=== PATIENT | female | born 1985 | race Caucasian/White ===

== ENCOUNTER → 2020-01-12 14:18 | Outpatient (BNVA) | payer BC, SELFPAY | PROVIDERS: Visit Provider Obstetrics & Gynecology | DX: Z76.89 Persons encountering health services in other specified circumstances (principal) ==

== ENCOUNTER 2020-02-09 12:46 | Outpatient (REF) | payer BC, SELFPAY ==
--- NOTE | 2020-02-09 12:50 | US_ITS ---
EXAMINATION: ULTRASOUND PELVIS CLINICAL INFORMATION: Excessive frequent menstruation. COMPARISON: None TECHNIQUE: Transabdominal and transvaginal ultrasound of the pelvis is performed at FINDINGS: The uterus is anteverted and anteflexed. It measures 11.3 cm in length, 3.9 cm in AP and 6.1 cm in transverse dimension. The myometrium is heterogeneous but no focal lesions seen. Endometrial thickness is 0.5 cm. Small nabothian cysts are seen in the cervix. Right ovary measures 3.3 x 2.2 x 1.8 cm and volume 6.8 mL. It appears unremarkable. Left ovary measures 3.3 x 1.8 x 2.1 cm and volume 6.5 mL. It appears unremarkable. There is no free fluid in cul-de-sac. US/US pelvic complete IMPRESSION: Heterogenous myometrium. The uterus otherwise unremarkable. Nabothian cysts seen in the cervix. The ovaries are unremarkable.
--- NOTE | 2020-02-09 12:50 | US_ITS ---
EXAMINATION: ULTRASOUND PELVIS CLINICAL INFORMATION: Excessive frequent menstruation. COMPARISON: None TECHNIQUE: Transabdominal and transvaginal ultrasound of the pelvis is performed at FINDINGS: The uterus is anteverted and anteflexed. It measures 11.3 cm in length, 3.9 cm in AP and 6.1 cm in transverse dimension. The myometrium is heterogeneous but no focal lesions seen. Endometrial thickness is 0.5 cm. Small nabothian cysts are seen in the cervix. Right ovary measures 3.3 x 2.2 x 1.8 cm and volume 6.8 mL. It appears unremarkable. Left ovary measures 3.3 x 1.8 x 2.1 cm and volume 6.5 mL. It appears unremarkable. There is no free fluid in cul-de-sac. US/US transvaginal IMPRESSION: Heterogenous myometrium. The uterus otherwise unremarkable. Nabothian cysts seen in the cervix. The ovaries are unremarkable.
[2020-02-09 14:32] LABS: Hematocrit 41.6 % (37-47); Hemoglobin 13.6 g/dl (12.0-16.0); Mean Corpuscular HGB Conc 32.7 g/dl (31.0-35.0); Mean Corpuscular Hemoglobin 29.3 pg (27.0-33.0); Mean Corpuscular Volume 89.7 fL (80-98); Mean Platelet Volume 10.3 fL (9.4-12.3); Platelet Count 345 X10*3/uL (160-400); Red Blood Count 4.64 X10*6/uL (4.20-5.50); Red Cell Distribution Width 11.9 % (11.0-16.0); White Blood Count 8.8 X10*3/uL (4.8-10.8)
[2020-02-09 15:25] LABS: HCG Quantitative < 2 mIU/mL; Thyroid Stimulating Hormone 0.35 uIU/mL (0.32-4.0)
== END 2020-02-09 12:47 | disposition home or self-care (01) ==
LOC: HO.US 12:46
PROVIDERS: PCP Internal Medicine; Visit Provider Obstetrics & Gynecology
DX: N92.1 Excessive and frequent menstruation with irregular cycle (principal)
CPT/HCPCS: 36415; 76830; 76856; 84443; 84702; 85027

== ENCOUNTER → 2020-02-24 12:15 | Outpatient (BNVA) | payer BC, SELFPAY | PROVIDERS: Visit Provider Obstetrics & Gynecology | DX: Z76.89 Persons encountering health services in other specified circumstances (principal) ==

== ENCOUNTER 2020-02-29 15:24 | Outpatient (REF) | payer BC, SELFPAY | END 2020-02-29 15:25 | disposition home or self-care (01) | LOC: HO.LAB 15:24 | PROVIDERS: Visit Provider Obstetrics & Gynecology | DX: N92.1 Excessive and frequent menstruation with irregular cycle (principal) | CPT/HCPCS: 58100; 88305 ==

== ENCOUNTER → 2020-03-14 11:17 | Outpatient (BNVA) | payer BC, SELFPAY | PROVIDERS: Visit Provider Obstetrics & Gynecology ==

== ENCOUNTER 2020-11-10 16:11 | Outpatient (REF) | payer BC, SELFPAY ==
[2020-11-10 16:36] LABS: IDNOW Serial# 08D9AD1C; Strep A Nucleic Acid Negative (Negative)
[2020-11-10 16:56] LABS: Influenza A PCR NEGATIVE (Negative); Influenza B PCR NEGATIVE (Negative); Resp Syncy Virus RNA Qual PCR NEGATIVE (Negative); SARS COV2 PCR INHOUSE NEGATIVE (Negative)
== END 2020-11-10 16:12 | disposition home or self-care (01) ==
LOC: HO.LNP 16:11
PROVIDERS: Visit Provider Internal Medicine
DX: R43.9 Unspecified disturbances of smell and taste (principal); J06.9 Acute upper respiratory infection, unspecified; Z20.822 Contact with and (suspected) exposure to COVID-19
CPT/HCPCS: 0241U; 87651

== ENCOUNTER 2021-01-24 07:15 | Emergency (ER) | payer BC, SELFPAY ==
[2021-01-24 08:15] VITALS: BP 126/80; PULSE 132; RESP 18; TEMP 36.9; O2SAT 98; BMI 52.8
--- NOTE | 2021-01-24 08:34 | ED_ITS ---
HPI - URI/Sore Throat General Chief Complaint: Upper Respiratory Symptoms Stated Complaint: Sore throat Time Seen by Provider: 01/24/21 08:08 Source: patient Mode of arrival: ambulatory Limitations: no limitations History of Present Illness HPI Narrative: 35 y/o female with history of recurrent Strep negative tonsil litis presenting to the with severe sore throat for the last 4 days. She reports fevers as high as 102 at home as well. She is taking tylenol and motrin for the fevers and pain. She reports this is her 3rd episode since November. She has tested negative for Strep but improves with PO abx. She reports her last episode she also got prednisone. She reports her voice is muffled and she is having trouble swallowing because of the pain. No known sick contacts. She is fully vaccinated for COVID-19. MD elicited complaint: fever and sore throat Onset (ago): day(s) (4) Consistency: progressively worsening Severity: moderate Pain scale (0-10): 7 Description of mucous: clear Able to tolerate fluids by mouth: Yes Exacerbating factors: swallowing and speaking Relieving factors: NSAID and OTC cold medicine Associated symptoms: fever, voice changes and myalgias Treatments prior to arrival: acetaminophen Related Data Home Medications Medication Instructions Recorded Confirmed albuterol sulfate 90 mcg/actuation 2 puff INHALATION DAILY PRN 01/12/20 03/14/20 aerosol inhaler buspirone 5 mg tablet 5 mg PO BID PRN 01/12/20 03/14/20 Previous Rx's Medication Instructions Recorded azithromycin 250 mg tablet See Rx Instructions PO .COMPLEX #6 11/10/20 (Zithromax) tab amoxicillin 600 mg-potassium 7.5 ml PO BID 14 Days #210 ml 01/24/21 clavulanate 42.9 mg/5 mL oral suspension (Augmentin ES-) benzocaine 20 % mucosal aerosol 1 appl MUCOUS MEMBRANE TID PRN #57 01/24/21 spray (HurriCaine) g ibuprofen 600 mg tablet 600 mg PO Q8H PRN #20 tab 01/24/21 prednisone 50 mg tablet 50 mg PO DAILY #5 tab 01/24/21 Allergies Allergy/AdvReac Type Severity Reaction Status Date / Time Sulfa (Sulfonamide Allergy Unknown YEAST Verified 11/10/20 13:07 Antibiotics) INFECTION, [SULFA(SULFONAMIDE yeast ANTIBIOTICS)] infections hard shell seafood Allergy Unknown swelling Uncoded 02/29/20 15:35 of throat, vomiting seafood Allergy Unknown unknown Uncoded 02/29/20 15:35 seasonal Allergy Unknown unknown Uncoded 02/29/20 15:35 SHELLFISH Allergy Unknown RASH Uncoded 02/29/20 15:35 Review of Systems Review of Systems: Constitutional: No Fever, No Chills ENT/Mouth: + sore throat, No Rhinorrhea, + Swallowing Difficulty Eyes: No Eye Pain, No Swelling, No Redness Cardiovascular: No Chest Pain, No SOB Respiratory: No Cough, No Sputum, No Wheezing, No dyspnea Gastrointestinal: No Nausea, No Vomiting, No Diarrhea, No abdominal Pain Genitourinary: No Dysuria, No Urinary Frequency, No Hematuria Musculoskeletal: No joint pain, + Myalgias Skin: No Skin Lesions, No rash Neuro: No Weakness, No Numbness, No Dizziness, + Headache Psych: No Anxiety/Panic, No Depression Heme/Lymph: No Bruising, No Lymphadenopathy PMFSH Past Medical History Medical History Asthma Migraine aura without headache Sleep apnea Family History Family History Paternal Grandmother Breast CA Social History Social History Alcohol intake: current Alcohol intake frequency: holidays/special occasions only Advance Directives: No Advance Directives Information Provided: No Patient : No Sexual orientation: Straight/Heterosexual Gender identity: Female Physical Exam Vital Signs: Vital Signs: Last Vital Signs Temp 98.7 F 01/24/21 10:16 Pulse 106 H 01/24/21 10:16 Resp 18 01/24/21 10:16 BP 124/72 01/24/21 10:16 Pulse Ox 98 01/24/21 10:16 BMI result Body Mass Index 52.8 Appearance: Alert. Oriented X3. No acute distress. HEENT: pharynx with moist mucous membranes. Posteriorly there is significant bilateral tonsillar swelling, mild erythema, no exudates, uvula is midline. Muffled voice. Handling secretions normally. Normal tympanic membranes bilaterally. CVS: tachycardic, regular rhythm, Pulses normal. Respiratory: No respiratory distress. Lungs CTAB Skin: Skin warm and dry. Normal skin color. Normal skin turgor. No rashes. Extremities: atraumatic, normal inspection, normal ROM Neuro: Oriented X 3. No motor deficit. No sensory deficit. Course Course Course Narrative: 35 y/o female presenting with recurrent tonsillitis. Hx mono in high school. Responds to abx and steroids previously. Will repeat Strep, COVID, check mono and basic labs. She is afebrile but tachycardic to 130s, most likely due to pain. Tonsils are bilaterally enlarged and uvula is midline. No evidence of abscess. Will treat with IVF, decadron and Toradol. Reevaluation(s) Reevaluation #1: COVID, strep, mono all negative. WBC 14.9. She is tolerating oral fluids and was given a dose of Augmentin which she tolerated well. Her pain is improved. She is stable for discharge home with oral antibiotics and steroids. Will also prescribe topical medication for pain. MDM - URI/Sore Throat Lab Data Result diagrams: 01/24/21 08:42 01/24/21 08:42 Labs: Lab Results 01/24/21 01/24/21 01/24/21 Range/Units 08:23 08:23 08:42 WBC (4.8-10.8) X10*3/uL RBC (4.20-5.50) X10*6/uL Hgb (12.0-16.0) g/dl Hct (37.0-47.0) % MCV (80.0-98.0) fL MCH (27.0-33.0) pg MCHC (31.0-35.0) g/dl RDW (11.0-16.0) % Plt Count (160-400) X10*3/uL MPV (9.4-12.3) fL Immature Gran % (Auto) (0.0-0.4) % Neut % (Auto) (45-73) % Lymph % (Auto) (20-40) % [place] % (Auto) (2-11) % Eos % (Auto) (0-4) % Baso % (Auto) (0-2) % Lymph # (Auto) (1.2-4.9) X10*3/uL [place] # (Auto) (0.1-1.2) X10*3/uL Eos # (Auto) (0.0-0.4) X10*3/uL Baso # (Auto) (0.0-0.2) X10*3/uL Abs Immat Gran (auto) (0.00-0.03) X10*3/uL Absolute Neuts (auto) (2.0-8.3) x10*3/uL Absolute Nucleated RBC (0.0-0.012) X10*3/uL Nucleated RBC % (auto) (0.0-0.2) /100WBC Sodium (135-145) mmol/L Potassium (3.3-5.1) mmol/L Chloride (96-108) mmol/L Carbon Dioxide (22-29) mmol/L Anion Gap (12-20) BUN (9-16) mg/dL Creatinine (0.5-1.4) mg/dL Estim Creat Clear Calc Estimated GFR Random Glucose (60-115) mg/dL Calcium (8.4-10.2) mg/dL COVID-19 ([facility]) Negative (Negative) COVID-19 Clin Com See Note Monoscreen Negative (Negative) S. pyogenes GrpA CONNER Negative (Negative) 01/24/21 01/24/21 Range/Units 08:42 08:42 WBC 14.9 H (4.8-10.8) X10*3/uL RBC 4.50 (4.20-5.50) X10*6/uL Hgb 13.1 (12.0-16.0) g/dl Hct 39.4 (37.0-47.0) % MCV 87.6 (80.0-98.0) fL MCH 29.1 (27.0-33.0) pg MCHC 33.2 (31.0-35.0) g/dl RDW 12.7 (11.0-16.0) % Plt Count 262 (160-400) X10*3/uL MPV 10.0 (9.4-12.3) fL Immature Gran % (Auto) 0.4 (0.0-0.4) % Neut % (Auto) 81.2 H (45-73) % Lymph % (Auto) 12.2 L (20-40) % Fill[place] % (Auto) 5.9 (2-11) % Eos % (Auto) 0.1 (0-4) % Baso % (Auto) 0.2 (0-2) % Lymph # (Auto) 1.8 (1.2-4.9) X10*3/uL [place] # (Auto) 0.9 (0.1-1.2) X10*3/uL Eos # (Auto) 0.0 (0.0-0.4) X10*3/uL Baso # (Auto) 0.0 (0.0-0.2) X10*3/uL Abs Immat Gran (auto) 0.06 H (0.00-0.03) X10*3/uL Absolute Neuts (auto) 12.1 H (2.0-8.3) x10*3/uL Absolute Nucleated RBC 0.000 (0.0-0.012) X10*3/uL Nucleated RBC % (auto) 0.0 (0.0-0.2) /100WBC Sodium 134 L (135-145) mmol/L Potassium 4.2 (3.3-5.1) mmol/L Chloride 102 (96-108) mmol/L Carbon Dioxide 23 (22-29) mmol/L Anion Gap 13 (12-20) BUN 10 (9-16) mg/dL Creatinine 0.77 (0.5-1.4) mg/dL Estim Creat Clear Calc 140.0 Estimated GFR > 60 Random Glucose 108 (60-115) mg/dL Calcium 9.2 (8.4-10.2) mg/dL COVID-19 ([facility]) (Negative) COVID-19 Clin Com Monoscreen (Negative) S. pyogenes GrpA CONNER (Negative) Critical Care Time Critical Care Time Critical Care Time: No Discharge Plan Discharge Clinical Impression: Tonsillitis Patient Disposition: Home, Self-Care Instructions: Tonsillitis (ED), Tonsillectomy (DC) Additional Instructions: You were negative for Strep throat and COVID-19. Recommend taking the prescribed antibiotics for a full 2 weeks. Take the prescribed prednisone starting tomorrow - you were given 1st dose in the ER. Use warm salt water gargles several times per day. Recommend over the counter Cepacol lozenges to help with throat pain. Get a new toothbrush. Follow up with ENT for evaluation of tonsillectomy. If you develop new or worsening symptoms call 911 or come back to the ER for further evaluation. Prescriptions: New amoxicillin-pot clavulanate [Augmentin ES-600] 600-42.9 mg/5 mL suspension for reconstitution 7.5 ml PO BID 14 Days Qty: 210 RF: 0 prednisone 50 mg tablet 50 mg PO DAILY Qty: 5 RF: 0 ibuprofen 600 mg tablet 600 mg PO Q8H PRN (Reason: fever or pain) Qty: 20 RF: 0 HurriCaine 20 % aerosol,spray 1 appl mucous membrane TID PRN (Reason: sore throat) Qty: 57 RF: 0 No Action azithromycin [Zithromax] 250 mg tablet See Rx Instructions PO .COMPLEX Qty: 6 RF: 0 buspirone 5 mg tablet 5 mg PO BID PRNRF: 0 albuterol sulfate 90 mcg/actuation HFA aerosol inhaler 2 puff inhalation DAILY PRNRF: 0 Referrals: Zafar Lisa [Physician] - 2 days (severe recurrent tonsillitis) Stand Alone Forms: Work/School Release
[2021-01-24 08:44] LABS: Strep A Nucleic Acid Negative (Negative)
[2021-01-24] MEDS: 0.9 % Sodium Chloride 1,000 ML 999 ML IVCONT (08:44)
[2021-01-24 08:47] LABS: MANUAL DIFF FLAG NO
[2021-01-24] MEDS: Ketorolac Tromethamine 30 MG/ML VIAL IVPUSH (08:47)
[2021-01-24] MEDS: dexAMETHasone sod phosphate 10 MG/ML VIAL IVPUSH (08:47)
[2021-01-24 08:50] LABS: COVID-19 Test Negative (Negative); IDNOW Serial# 55D5AD1C
[2021-01-24 08:50] LABS: Basophils Percent Auto 0.2 % (0-2); Eosinophils Percent Auto 0.1 % (0-4); Hematocrit 39.4 % (37.0-47.0); Hemoglobin 13.1 g/dl (12.0-16.0); Imm Gran Abs Auto 0.06 X10*3/uL (0.00-0.03); Imm Gran Pct Auto 0.4 % (0.0-0.4); Lymphocytes Absolute Auto 1.8 X10*3/uL (1.2-4.9); Lymphocytes Percent Auto 12.2 % (20-40); Mean Corpuscular HGB Conc 33.2 g/dl (31.0-35.0); Mean Corpuscular Hemoglobin 29.1 pg (27.0-33.0); Mean Corpuscular Volume 87.6 fL (80.0-98.0); Monocytes Absolute Auto 0.9 X10*3/uL (0.1-1.2); Monocytes Percent Auto 5.9 % (2-11); Neutrophils Absolute Auto 12.1 x10*3/uL (2.0-8.3); Neutrophils Percent Auto 81.2 % (45-73); Platelet Count 262 X10*3/uL (160-400); Red Cell Distribution Width 12.7 % (11.0-16.0); White Blood Count 14.9 X10*3/uL (4.8-10.8)
--- NOTE | 2021-01-24 08:52 | PC.NURSE ---
Pt IV established, medicated as per MAR orders, labs sent. Call noble in place, will continue to monitor.
[2021-01-24 09:08] LABS: Anion Gap 13 (12-20); Blood Urea Nitrogen 10 mg/dL (9-16); Calcium 9.2 mg/dL (8.4-10.2); Carbon Dioxide 23 mmol/L (22-29); Chloride 102 mmol/L (96-108); Estimated Glomerular Filt Rate > 60; Glucose Random 108 mg/dL (60-115); Potassium 4.2 mmol/L (3.3-5.1); Sodium 134 mmol/L (135-145)
[2021-01-24] MEDS: Lidocaine HCl Viscous 2 % 15 ML SOLUTION MUCOUS MEM (09:38)
[2021-01-24 10:16] VITALS: BP 124/72; PULSE 106; RESP 18; TEMP 37.1; O2SAT 98
[2021-01-24 10:43] LABS: Monotest Negative (Negative)
== END 2021-01-24 11:16 | disposition home or self-care (01) ==
PROVIDERS: Physician Assistant; Emergency Provider Emergency Medicine; PCP Internal Medicine
DX: J03.90 Acute tonsillitis, unspecified (principal); R51.9 Headache, unspecified; Z20.822 Contact with and (suspected) exposure to COVID-19
CPT/HCPCS: 36415; 80048; 85025; 86308; 87635; 87651; 96361; 96374; 96375; 99284; J1100; J1885

== ENCOUNTER 2021-08-02 11:28 | Outpatient (REF) | payer BC, SELFPAY ==
[2021-08-02 13:47] LABS: MANUAL DIFF FLAG NO
[2021-08-02 14:08] LABS: Basophils Percent Auto 0.4 % (0-2); Eosinophils Absolute Auto 0.2 X10*3/uL (0.0-0.4); Eosinophils Percent Auto 2.7 % (0-4); Hematocrit 37.2 % (37.0-47.0); Imm Gran Abs Auto 0.03 X10*3/uL (0.00-0.03); Imm Gran Pct Auto 0.4 % (0.0-0.4); Lymphocytes Absolute Auto 3.1 X10*3/uL (1.2-4.9); Lymphocytes Percent Auto 36.7 % (20-40); Mean Corpuscular HGB Conc 32.3 g/dl (31.0-35.0); Mean Corpuscular Hemoglobin 29.1 pg (27.0-33.0); Mean Corpuscular Volume 90.1 fL (80.0-98.0); Mean Platelet Volume 10.6 fL (9.4-12.3); Monocytes Absolute Auto 0.6 X10*3/uL (0.1-1.2); Monocytes Percent Auto 7.1 % (2-11); Neutrophils Absolute Auto 4.5 x10*3/uL (2.0-8.3); Neutrophils Percent Auto 52.7 % (45-73); Platelet Count 270 X10*3/uL (160-400); Red Blood Count 4.13 X10*6/uL (4.20-5.50); Red Cell Distribution Width 12.5 % (11.0-16.0); White Blood Count 8.5 X10*3/uL (4.8-10.8)
[2021-08-02 14:19] LABS: Alanine Aminotransferase 28 U/L (0-31); Albumin Level 3.8 g/dL (3.5-5.0); Alkaline Phosphatase 74 U/L (39-117); Anion Gap 12 (12-20); Aspartate Amino Transferase 21 U/L (5-31); Bilirubin Total 0.4 mg/dL (0.0-1.0); Blood Urea Nitrogen 13 mg/dL (9-16); Calcium 8.9 mg/dL (8.4-10.2); Carbon Dioxide 27 mmol/L (22-29); Chloride 104 mmol/L (96-108); Cholesterol 195 mg/dL; Estimated Glomerular Filt Rate > 60; Glucose Fasting 95 mg/dL (60-99); HDL Cholesterol 46 mg/dL; LDL Cholesterol Calculated 113 mg/dl; Potassium 4.5 mmol/L (3.3-5.1); Sodium 138 mmol/L (135-145); Total Protein 6.7 g/dL (6.5-8.0); Triglycerides 180 mg/dL
== END 2021-08-02 11:29 | disposition home or self-care (01) ==
LOC: HO.10HDL 11:28
PROVIDERS: Visit Provider Internal Medicine
DX: Z00.00 Encounter for general adult medical examination without abnormal findings (principal)
CPT/HCPCS: 36415; 80053; 80061; 84443; 85025

== ENCOUNTER 2022-04-12 22:42 | Emergency (ER) | payer BC, SELFPAY ==
--- NOTE | ~2022-04-12 | CT_ITS ---
EXAMINATION: CT ABDOMEN AND PELVIS WITHOUT CONTRAST CLINICAL INFORMATION: Left flank pain COMPARISON: None TECHNIQUE: Multidetector volumetric imaging was performed from the superior aspect of the liver through the pubic symphysis. Sagittal and coronal reformatted images were obtained on the technologist's workstation. This CT examination was performed using dose optimization techniques as appropriate, variously including the following: *Automated exposure control *Adjustment of mA and/or kV according to patient size (this includes techniques or standardized protocols for targeted exams where dose is matched to indication/reason for exam; i.e. extremities or head) *Use of iterative reconstruction technique DLP: 1420 mGy-cm FINDINGS: LUNG BASES: The visualized lung bases are unremarkable. LIVER, GALLBLADDER, AND BILIARY TREE: The liver demonstrate hypoattenuation suspicious for steatosis. No biliary ductal dilatation is present. Gallbladder appears contracted. PANCREAS: Partially atrophic. SPLEEN: Unremarkable. ADRENAL GLANDS: Unremarkable. KIDNEYS AND URETERS: There is a 3 mm calculus at the left ureterovesicular junction with mild hydroureter and no significant hydronephrosis. No right hydronephrosis. BLADDER: Mildly distended. 3 mm calculus at the left ureterovesicular junction. GASTROINTESTINAL TRACT: Minimal colonic diverticulosis. The small and large bowel are otherwise unremarkable without evidence of obstruction or pericolonic inflammatory change. The appendix is unremarkable. No free fluid or free air is seen. ABDOMINAL WALL: No significant hernia is appreciated. LYMPH NODES: Normal. VASCULAR: Unremarkable. PELVIC VISCERA: Unremarkable. OSSEOUS STRUCTURES: Multilevel endplate osteophytes in the spine. Facet arthropathy at L5-S1. CT/CT abdomen pelvis wo IV con IMPRESSION: 1. Left ureterovesicular junction calculus measuring 3 mm with mild hydroureter. No significant hydronephrosis. 2. Hepatic steatosis.
[2022-04-12 22:44] VITALS: BP 153/94; PULSE 107; RESP 16; TEMP 36.4; O2SAT 98; BMI 57.5
[2022-04-12 23:38] LABS: MANUAL DIFF FLAG NO
[2022-04-12 23:39] LABS: Basophils Percent Auto 0.3 % (0-2); Eosinophils Absolute Auto 0.2 X10*3/uL (0.0-0.4); Eosinophils Percent Auto 1.3 % (0-4); Hematocrit 34.9 % (37.0-47.0); Hemoglobin 11.9 g/dl (12.0-16.0); Imm Gran Abs Auto 0.03 X10*3/uL (0.00-0.03); Imm Gran Pct Auto 0.3 % (0.0-0.4); Lymphocytes Absolute Auto 2.7 X10*3/uL (1.2-4.9); Lymphocytes Percent Auto 23.1 % (20-40); Mean Corpuscular HGB Conc 34.1 g/dl (31.0-35.0); Mean Corpuscular Hemoglobin 29.7 pg (27.0-33.0); Mean Platelet Volume 9.7 fL (9.4-12.3); Monocytes Absolute Auto 0.8 X10*3/uL (0.1-1.2); Monocytes Percent Auto 6.9 % (2-11); Neutrophils Percent Auto 68.1 % (45-73); Platelet Count 262 X10*3/uL (160-400); Red Blood Count 4.01 X10*6/uL (4.20-5.50); Red Cell Distribution Width 12.4 % (11.0-16.0); White Blood Count 11.7 X10*3/uL (4.8-10.8)
[2022-04-13 00:06] LABS: Alanine Aminotransferase 28 U/L (0-31); Albumin Level 3.8 g/dL (3.5-5.0); Alkaline Phosphatase 83 U/L (39-117); Anion Gap 14 (12-20); Aspartate Amino Transferase 17 U/L (5-31); Bilirubin Total 0.4 mg/dL (0.0-1.0); Blood Urea Nitrogen 15 mg/dL (9-16); Calcium 8.5 mg/dL (8.4-10.2); Carbon Dioxide 24 mmol/L (22-29); Chloride 105 mmol/L (96-108); Creatinine Clr Calc Pharmacy 151.1; Estimated Glomerular Filt Rate > 60; Glucose Random 156 mg/dL (60-115); Potassium 3.7 mmol/L (3.3-5.1); Sodium 139 mmol/L (135-145); Total Protein 6.4 g/dL (6.5-8.0)
--- NOTE | 2022-04-13 00:59 | ED_ITS ---
HPI - General Adult General Chief complaint: General Medical Stated complaint: Kidney Stone? Abdominal Pain Time Seen by Provider: 04/13/22 00:31 History of Present Illness HPI narrative: Patient is a 36-year-old female present today with having left flank pain radiating to the left groin area. The pain is sharp in nature. Started this evening. Never had a kidney stone before. No change in bowel movement. Patient's menstruation has been normal in timing and duration. No fever no chills. No coughing or congestion her symptoms. Related Data Home Medications Medication Instructions Recorded Confirmed albuterol sulfate 90 mcg/actuation 2 puff inhalation DAILY PRN 01/12/20 03/14/20 aerosol inhaler buspirone 5 mg tablet 5 mg PO BID PRN 01/12/20 03/14/20 Previous Rx's Medication Instructions Recorded azithromycin 250 mg tablet See Rx Instructions PO .COMPLEX #6 11/10/20 (Zithromax) tabs amoxicillin 600 mg-potassium 7.5 ml PO BID 14 days #210 mL 01/24/21 clavulanate 42.9 mg/5 mL oral suspension (Augmentin ES-) benzocaine 20 % mucosal aerosol 1 appl mucous membrane TID PRN 01/24/21 spray (HurriCaine) sore throat #57 grams ibuprofen 600 mg tablet 600 mg PO Q8H PRN fever or pain 01/24/21 #20 tabs prednisone 50 mg tablet 50 mg PO DAILY #5 tabs 01/24/21 cefuroxime axetil 500 mg tablet 500 mg PO BID 7 days #14 tabs 04/13/22 ibuprofen 400 mg tablet 400 mg PO Q6H PRN pain #20 tabs 04/13/22 ondansetron 4 mg disintegrating 4 mg PO TID PRN nausea and 04/13/22 tablet vomiting 5 days #10 tabs oxycodone 5 mg tablet 5 mg PO Q8H PRN pain #7 tabs 04/13/22 tamsulosin 0.4 mg capsule (Flomax) 0.4 mg PO DAILY #7 caps 04/13/22 Allergies Allergy/AdvReac Type Severity Reaction Status Date / Time Sulfa (Sulfonamide Allergy Unknown YEAST Verified 11/10/20 13:07 Antibiotics) INFECTION, [SULFA(SULFONAMIDE yeast ANTIBIOTICS)] infections hard shell seafood Allergy Unknown swelling Uncoded 02/29/20 15:35 of throat, vomiting seafood Allergy Unknown unknown Uncoded 02/29/20 15:35 seasonal Allergy Unknown unknown Uncoded 02/29/20 15:35 SHELLFISH Allergy Unknown RASH Uncoded 02/29/20 15:35 Review of Systems Review of Systems: Positive left flank pain Yes all other systems are reviewed and are negative [facility] Past Medical History Attestation statement: The following information was validated with the patient. Medical History Asthma Migraine aura without headache Sleep apnea Family History Family History Paternal Grandmother Breast CA Social History Social History Alcohol intake: current Alcohol intake frequency: holidays/special occasions only Smoked in Last 30 Days: No Use of substances other than those prescribed or required for medical reasons: Yes Substance Use Type: Marijuana Advance Directives: No Advance Directives Information Provided: Yes Patient : No Sexual orientation: Straight/Heterosexual Gender identity: Female Physical Exam ED Vital Signs: Vital Signs - 24 hr 04/12/22 22:44 04/13/22 01:16 04/13/22 03:36 Temperature 97.5 F 98.3 F 98.0 F Pulse Rate 107 H 71 83 Respiratory Rate 16 18 17 Blood Pressure 153/94 H 139/69 117/53 L Pulse Oximetry 98 98 96 Oxygen Delivery Method Room Air Room Air Room Air BMI result Body Mass Index 57.5 Appearance: Alert. Oriented X3. No acute distress. Eyes: Pupils equal, round and reactive to light. ENT: Pharynx normal. Neck: Normal inspection. Neck supple. No lymph nodes noted. No crepitus CVS: Normal heart rate and rhythm. Pulses normal. Normal S1 and S2 Respiratory: No respiratory distress. Breath sounds normal. No Wheezing. No rales Abdomen: Soft and nontender. No rigidity. No distention. good BS x4 Skin: Skin warm and dry. Normal skin color. Normal skin turgor. Extremities: No lower extremity edema. Neurovascular intact to all extremities. No Lacerations. No Rash Neuro: Oriented X 3. No motor deficit. No sensory deficit. Moving all extermities. No slurred speech Medications Administered Discontinued Medications Generic Name Dose Route Start Last Admin Trade Name Freq PRN Reason Stop Dose Admin Sodium Chloride 1,000 mls @ 999 mls/hr 04/13/22 01:00 04/13/22 03:16 Ns IV 04/13/22 02:00 Infused .Q1H1M BLAS Infusion Ketorolac Tromethamine 15 mg 04/13/22 00:58 04/13/22 01:12 Ketorolac Tromethamine 15 Mg/Ml Vial IVPUSH 04/13/22 00:59 15 mg ONCE ONE Administration Ondansetron HCl 4 mg 04/13/22 00:58 04/13/22 01:12 Ondansetron Hcl 4 Mg/2 Ml Vial IVPUSH 04/13/22 00:59 4 mg ONCE ONE Administration Medical Decision Making Medical Decision Making [facility] Narrative: Patient complaining of left lower quadrant pain left flank pain. The pain is sharp is extreme it started approximately 21:00 associated with some nausea. test was negative. Patient's urine showed a questionable infection versus contamination. Attempted to repeat the urine. It is approximately the same. CT scan of the abdomen pelvis was done. It was grossly positive for kidney stone at the [facility]. There is no evidence of bowel obstruction, abscess, perforation, diverticulitis. Patient's pain is control after medications. Will discharge patient home on antibiotics. Explained to patient the need to return immediately if she develops fever. Patient will need very close follow-up with Urology on an outpatient basis. Explained to patient risk of infection exists. Worsening condition to return immediately. Patient was prescribed pain medication along with nausea medication, antibiotics, Flomax to help Differential Diagnosis Differential Diagnoses: The differential diagnosis associated with the presentation includes Kidney stone, obstruction, abscess, perforation, diverticulitis, abdominal aortic aneurysm Admission/Observation Consideration of admission/observation: Escalation of care including admission/observation considered Lab Data [facility] Lab Attestation statement: I reviewed the patient's lab results. 04/12/22 23:34 04/12/22 23:34 Labs: Lab Results 04/12/22 04/12/22 04/13/22 Range/Units 23:34 23:34 01:17 WBC 11.7 H (4.8-10.8) X10*3/uL RBC 4.01 L (4.20-5.50) X10*6/uL Hgb 11.9 L (12.0-16.0) g/dl Hct 34.9 L (37.0-47.0) % MCV 87.0 (80.0-98.0) fL MCH 29.7 (27.0-33.0) pg MCHC 34.1 (31.0-35.0) g/dl RDW 12.4 (11.0-16.0) % Plt Count 262 (160-400) X10*3/uL MPV 9.7 (9.4-12.3) fL Immature Gran % (Auto) 0.3 (0.0-0.4) % Neut % (Auto) 68.1 (45-73) % Lymph % (Auto) 23.1 (20-40) % Graves % (Auto) 6.9 (2-11) % Eos % (Auto) 1.3 (0-4) % Baso % (Auto) 0.3 (0-2) % Lymph # (Auto) 2.7 (1.2-4.9) X10*3/uL Graves # (Auto) 0.8 (0.1-1.2) X10*3/uL Eos # (Auto) 0.2 (0.0-0.4) X10*3/uL Baso # (Auto) 0.0 (0.0-0.2) X10*3/uL Abs Immat Gran (auto) 0.03 (0.00-0.03) X10*3/uL Absolute Neuts (auto) 8.0 (2.0-8.3) x10*3/uL Absolute Nucleated RBC 0.000 (0.0-0.012) X10*3/uL Nucleated RBC % (auto) 0.0 (0.0-0.2) /100WBC Sodium 139 (135-145) mmol/L Potassium 3.7 (3.3-5.1) mmol/L Chloride 105 (96-108) mmol/L Carbon Dioxide 24 (22-29) mmol/L Anion Gap 14 (12-20) BUN 15 (9-16) mg/dL Creatinine 0.72 (0.5-1.4) mg/dL Estim Creat Clear Calc 151.1 Estimated GFR > 60 Random Glucose 156 H (60-115) mg/dL Calcium 8.5 (8.4-10.2) mg/dL Total Bilirubin 0.4 (0.0-1.0) mg/dL AST 17 (5-31) U/L ALT 28 (0-31) U/L Alkaline Phosphatase 83 (39-117) U/L Total Protein 6.4 L (6.5-8.0) g/dL Albumin 3.8 (3.5-5.0) g/dL Urine Color Yellow Urine Appearance Clear Urine pH 6.5 (5.0-9.0) Ur Specific [place] >= 1.030 H (1.005-1.025) Urine Protein 30 (1+) H (Neg-Trace) mg/dL Urine Glucose (UA) Negative (Negative) mg/dL Urine Ketones Trace (Negative) mg/dL Urine Blood Large (3+) H (Negative) Urine Nitrite Negative (Negative) Ur Leukocyte Esterase Moderate (2+) H (Negative) Urine RBC >20 H (0-2) /HPF Urine WBC 11-20 H (0-5) /HPF Ur Squamous Epith Cells 6-10 (0-2) /HPF Urine Bacteria None Seen (None Seen) Hyaline Casts 0-2 (0-2) /LPF Urine Test (NEGATIVE) 04/13/22 04/13/22 Range/Units 01:17 01:53 WBC (4.8-10.8) X10*3/uL RBC (4.20-5.50) X10*6/uL Hgb (12.0-16.0) g/dl Hct (37.0-47.0) % MCV (80.0-98.0) fL MCH (27.0-33.0) pg MCHC (31.0-35.0) g/dl RDW (11.0-16.0) % Plt Count (160-400) X10*3/uL MPV (9.4-12.3) fL Immature Gran % (Auto) (0.0-0.4) % Neut % (Auto) (45-73) % Lymph % (Auto) (20-40) % Graves % (Auto) (2-11) % Eos % (Auto) (0-4) % Baso % (Auto) (0-2) % Lymph # (Auto) (1.2-4.9) X10*3/uL Graves # (Auto) (0.1-1.2) X10*3/uL Eos # (Auto) (0.0-0.4) X10*3/uL Baso # (Auto) (0.0-0.2) X10*3/uL Abs Immat Gran (auto) (0.00-0.03) X10*3/uL Absolute Neuts (auto) (2.0-8.3) x10*3/uL Absolute Nucleated RBC (0.0-0.012) X10*3/uL Nucleated RBC % (auto) (0.0-0.2) /100WBC Sodium (135-145) mmol/L Potassium (3.3-5.1) mmol/L Chloride (96-108) mmol/L Carbon Dioxide (22-29) mmol/L Anion Gap (12-20) BUN (9-16) mg/dL Creatinine (0.5-1.4) mg/dL Estim Creat Clear Calc Estimated GFR Random Glucose (60-115) mg/dL Calcium (8.4-10.2) mg/dL Total Bilirubin (0.0-1.0) mg/dL AST (5-31) U/L ALT (0-31) U/L Alkaline Phosphatase (39-117) U/L Total Protein (6.5-8.0) g/dL Albumin (3.5-5.0) g/dL Urine Color Yellow Urine Appearance Turbid Urine pH 6.0 (5.0-9.0) Ur Specific [place] >= 1.030 H (1.005-1.025) Urine Protein 30 (1+) H (Neg-Trace) mg/dL Urine Glucose (UA) Negative (Negative) mg/dL Urine Ketones Trace (Negative) mg/dL Urine Blood Large (3+) H (Negative) Urine Nitrite Negative (Negative) Ur Leukocyte Esterase Small (1+) H (Negative) Urine RBC >20 H (0-2) /HPF Urine WBC 11-20 H (0-5) /HPF Ur Squamous Epith Cells 3-5 (0-2) /HPF Urine Bacteria None Seen (None Seen) Hyaline Casts 0-2 (0-2) /LPF Urine Test NEGATIVE (NEGATIVE) Radiology Impression Discussion of test interpretation with radiology: I have reviewed the radiologist's reading. Independent Historian Clinical information obtained from an independent historian. History obtained fr om or confirmed by: Spouse External Record Review External record reviewed: Inpatient record Prescription Management I considered prescription management with: Pain Medication and Antibiotic Discharge Plan Discharge Clinical Impression: Renal colic, Urinary tract infection Patient Disposition: Home, Self-Care Instructions: Urinary Tract Infection in Women (ED), Renal Colic (ED) Additional Instructions: If you develop a fever come back to the emergency department immediately. Prescriptions: New cefuroxime axetil 500 mg tablet 500 mg PO BID 7 Days Qty: 14 0RF tamsulosin [Flomax] 0.4 mg capsule 0.4 mg PO DAILY Qty: 7 0RF ibuprofen 400 mg tablet 400 mg PO Q6H PRN (Reason: pain) Qty: 20 0RF ondansetron 4 mg tablet,disintegrating 4 mg PO TID PRN (Reason: nausea and vomiting) 5 Days Qty: 10 0RF oxycodone 5 mg tablet 5 mg PO Q8H PRN (Reason: pain) Qty: 7 0RF Rx Instructions: Partial Fill upon patient request. No Action amoxicillin-pot clavulanate [Augmentin ES-600] 600-42.9 mg/5 mL suspension for reconstitution 7.5 ml PO BID 14 Days Qty: 210 0RF prednisone 50 mg tablet 50 mg PO DAILY Qty: 5 0RF ibuprofen 600 mg tablet 600 mg PO Q8H PRN (Reason: fever or pain) Qty: 20 0RF HurriCaine 20 % aerosol,spray 1 appl mucous membrane TID PRN (Reason: sore throat) Qty: 57 0RF azithromycin [Zithromax] 250 mg tablet See Rx Instructions PO .COMPLEX Qty: 6 0RF Rx Instructions: take 500 mg today (day 1), then 250 mg for 4 days (days 2-5) PO buspirone 5 mg tablet 5 mg PO BID PRN albuterol sulfate 90 mcg/actuation HFA aerosol inhaler 2 puff inhalation DAILY PRN Referrals: Oriana Jack MD [Physician] - 04/16/22
[2022-04-13] MEDS: Ketorolac Tromethamine 15 MG/ML VIAL IVPUSH (01:12)
[2022-04-13] MEDS: ondansetron HCL 4 MG/2 ML VIAL IVPUSH (01:12)
[2022-04-13] MEDS: 0.9 % Sodium Chloride 1,000 ML 999 ML IV (01:12)
[2022-04-13 01:16] VITALS: BP 139/69; PULSE 71; RESP 18; TEMP 36.8; O2SAT 98
[2022-04-13 01:26] LABS: Appearance Urine Clear; Color Urine Yellow; Glucose Urine UA Negative (Negative); Leukocyte Esterase Urine Moderate (2+) (Negative); Nitrite Urine Negative (Negative); PH 6.5 (5.0-9.0); Specific Gravity - Urine >= 1.030 (1.005-1.025); UMIC TRIGGER UACC YES; Urine Blood Large (3+) (Negative); Urine Ketones Trace mg/dL (Negative); Urine Protein 30 (1+) mg/dL (Neg-Trace)
[2022-04-13 01:27] LABS: UPreg QC Valid YES; Urine Pregnancy NEGATIVE (NEGATIVE)
--- NOTE | 2022-04-13 01:28 | PC.NURSE ---
this rn assumed care of pt @ 0050. at bedside. iv placed in L AC. flushed well. pt medicated according to apr. awaiting imaging at this time
[2022-04-13 01:31] LABS: Bacteria Urine None Seen (None Seen); Hyaline Casts Urine 0-2 /LPF (0-2); RBC Urine >20 /HPF (0-2); UACC Culture Trigger YES
[2022-04-13 03:36] VITALS: BP 117/53; PULSE 83; RESP 17; TEMP 36.7; O2SAT 96
[2022-04-13 04:51] LABS: Appearance Urine Turbid; Color Urine Yellow; Glucose Urine UA Negative (Negative); Leukocyte Esterase Urine Small (1+) (Negative); Nitrite Urine Negative (Negative); Specific Gravity - Urine >= 1.030 (1.005-1.025); UMIC TRIGGER UACC YES; Urine Blood Large (3+) (Negative); Urine Ketones Trace mg/dL (Negative); Urine Protein 30 (1+) mg/dL (Neg-Trace)
[2022-04-13 04:53] LABS: Bacteria Urine None Seen (None Seen); Hyaline Casts Urine 0-2 /LPF (0-2); RBC Urine >20 /HPF (0-2)
[2022-04-13 04:54] LABS: UACC Culture Trigger NO
[2022-04-13] MEDS: cefTRIAXone sodium 1 GM in 0.9 % Sodium Chloride 50 ML IV (05:18)
--- NOTE | 2022-04-13 05:22 | PC.NURSE ---
pt medicated according to mar. pt remains at bedside at this time. pt up for discharge once ceftriaxone iv has completed
[2022-04-13 05:36] VITALS: BP 113/62; PULSE 83; RESP 14; TEMP 36.4; O2SAT 97
--- NOTE | 2022-04-13 05:41 | PC.NURSE ---
pt ambulatory at discharge. iv removed at time of discharge. vss. skin pwd. pt at bedside at discharge. discharge packet provided to pt. pt verbalized understanding of discharge plan
== END 2022-04-13 05:43 | disposition home or self-care (01) ==
PROVIDERS: Emergency Provider Emergency Medicine Emergency Medical Services; PCP Internal Medicine
DX: N23 Unspecified renal colic (principal); N39.0 Urinary tract infection, site not specified; Z79.899 Other long term (current) drug therapy
CPT/HCPCS: 36415; 74176; 80053; 81001; 81025; 85025; 87086; 96361; 96365; 96375; 99284; J0696; J1885; J2405

== ENCOUNTER 2022-05-04 08:50 | Outpatient (REF) | payer BC, SELFPAY | END 2022-05-04 08:51 | disposition home or self-care (01) | LOC: HO.LAB 08:50 | PROVIDERS: PCP Internal Medicine; Visit Provider Nurse Practitioner Family | DX: N20.0 Calculus of kidney (principal) | CPT/HCPCS: 87086 ==

== ENCOUNTER 2022-06-01 14:06 | Outpatient (REF) | payer BC, SELFPAY ==
--- NOTE | ~2022-06-01 | US_ITS ---
EXAMINATION: US RETROPERITONEAL LIMITED (RENAL ONLY) CLINICAL INFORMATION: Calculus of kidney. COMPARISON: CT abdomen and pelvis without contrast dated 04/13/2022. TECHNIQUE: Real-time imaging of the kidneys. FINDINGS: RIGHT KIDNEY: 12.2 x 5.2 x 4.9 cm (SAG x AP x TRV). The kidney is normal in size, contour, and echogenicity. Renal cortical thickness is normal. No calculi or focal parenchymal lesions. No hydronephrosis. LEFT KIDNEY: 11.9 x 5.2 x 5.8 cm (SAG x AP x TRV). The kidney is normal in size, contour, and echogenicity. Renal cortical thickness is normal. No calculi or focal parenchymal lesions. No hydronephrosis. US/US renal BI IMPRESSION: No stone seen.
== END 2022-06-01 14:07 | disposition home or self-care (01) ==
LOC: HO.US 14:06
PROVIDERS: PCP Internal Medicine; Visit Provider Nurse Practitioner Family
DX: N20.0 Calculus of kidney (principal)
CPT/HCPCS: 76775

== ENCOUNTER → 2022-06-08 14:32 | Outpatient (BNVA) | payer BC, SELFPAY | PROVIDERS: PCP Internal Medicine; Visit Provider Nurse Practitioner Family | DX: Z13.89 Encounter for screening for other disorder (principal) ==

== ENCOUNTER → 2022-09-13 09:19 | Outpatient (BNVA) | payer BC, SELFPAY | PROVIDERS: PCP Internal Medicine; Visit Provider Physician Assistant ==

== ENCOUNTER 2022-10-17 13:42 | Outpatient (AMB) | payer BC, SELFPAY ==
--- NOTE | 2022-10-17 13:34 | A.OFFVIS_ITS ---
Intake VS Expanded 10/17/22 13:55 Height 5 ft 3 in Weight 344 lb 9.6 oz BMI 61.0 BP 152/69 H Blood Pressure Location Lt brachial Blood Pressure Position Sitting Pulse 112 H Pulse Source Pulse Oximeter Temp 97 F Temperature Source Temporal Artery Scan Pulse Oximetry 97 Oxygen Delivery Method Room Air Body Fat 176.8 Body Fat Percentage 51.3 Free Fat Mass 167.8 Muscle Mass 159.4 Visceral Mass 21.0 Water Mass 120.2 BMR 2,642 Intake Visit Reasons: (ov) SWL BMI 60.1 Intake Note: Patient is seen in office for follow up visit, following surgical weight loss. Joint Finisher Required: No Accompanied by: Self / Same As Patient Allergies Sulfa (Sulfonamide Antibiotics) [SULFA(SULFONAMIDE ANTIBIOTICS)] Allergy (Unknown, Verified 10/17/22 14:00) YEAST INFECTION, yeast infections hard shell seafood Allergy (Unknown, Uncoded 10/17/22 14:00) swelling of throat, vomiting seafood Allergy (Unknown, Uncoded 10/17/22 14:00) unknown seasonal Allergy (Unknown, Uncoded 10/17/22 14:00) unknown SHELLFISH Allergy (Unknown, Uncoded 10/17/22 14:00) RASH Medication List - Last Reconciled 10/17/22 by Inge Gaona PA-C losartan 25 mg PO DAILY venlafaxine ER 75 mg PO DAILY HPI HPI Comments History of Present Illness Details This is a 37 year old woman who is here to start SWL program with SWL classes. Her goal is to weigh about 153 lbs. She states she has been overweight since childhood. She reports first being concerned about her weight since 2008, went to [facility] [place] [facility] program started at 89 and lost bout 28 lbs. She has tried multiple methods of weight loss including [employer], WW and other programs without permanent results. She lives with her and 3 children. She works 5 days per week \, from 7am - 4pm. Sensitivity to dairy products with diarrhea and cramping. She wakes at: 5:45 am, bed at 11 pm Breakfast: 6:30 - 1 cup coffee with oatmilk. Bagel with cc or wrap and cheese and egg from home. Or bag of grapes or granola bar Lunch: 11:15 am - salad or sandwich or leftovers from home. water and seltzer Dinner: 6pm- vegetable, meat and large amounts of carbs. Last night chicken tenders and fries or mac and cheese. water After dinner: popcorn or chips or yogurt or sweet things Other snacks: 4:30 - vegetable or fruits or chips or granola bar. water Liquids: Soda once per week - Coke or Gingerale . no fruit juice Alcohol intake: once per month, 2-3 drinks of Mojito or wine, tobacco: none, marijuana: edibles twice per month - but snacked to much and cut back. Exercise: has membership to , no equipment [facility]. Last mammogram: not yet Last pap smear: up to date control method: has vasectomy RIO: 0 ESS:10 GERD:6 QOL:95 PFSH Medical History (Updated 10/17/22 @ 15:04 by Inge Gaona PA-C) Asthma Migraine aura without headache Sleep apnea Family History Paternal Grandmother Breast CA Social History Alcohol intake: current Alcohol intake frequency: holidays/special occasions only Substance Use Type: Marijuana Sexual orientation: Straight/Heterosexual Gender identity: Female Physical Exam Const General: cooperative, no acute distress and well developed Nutritional Appearance: obese Orientation/consciousness: patient oriented x3 HEENT Head: Yes normal to inspection Neck Neck: Yes normal visual inspection Thyroid: Thyroid normal Resp Effort & Inspection: normal respiratory effort Auscultation: clear to auscultation bilaterally Cardio Rate: regular rate Rhythm: regular rhythm Heart sounds: S1 normal heart sound present, S2 normal heart sound present and no murmurs GI Inspection: No distended and Yes obesity Palpation (GI): Soft to palpation, nontender and no guarding Skin General skin exam: no rashes or lesions noted and other (warm and dry) Wounds: no wounds Hair: normal Neuro General: patient oriented x3 Extrem General: Yes no pedal edema and Yes no calf tenderness Psych Attitude: cooperative Thought process: Normal thought process present Thought content: Normal thought content present Insight: Good insight present (Psych) Judgement: Good judgement present (Psych) Assessment & Plan Assessment & Plan (1) Morbid obesity: Code(s): E66.01 - Morbid (severe) obesity due to excess calories Plan: This is a 37 yo woman with morbid obesity and ITALIA who will start SWL program to prepare for bariatric surgery. Blood work, h pylori , CXR, ECG, Abd ULS and UGI have been ordered. She is being scheduled for RD and BH initial consultations. She will start SWL classes and watch at 3 classes before her next appt with Natalia. 1. Adequate sleep of 7-8 hours per night discussed 2. Healthy meal plan - stop snacking All meals/MR's need to take 20 minutes to complete 7:30 am - 30 gram shake 11:30 am - 30 gram shake or bar/yogurt 3:30 pm- alternate with 11:30 6 pm- dinner of 6 oz lean protein, 6 oz vegetable, 1 serving fruit 8:30 pm - bar in 10 pieces Exercise - Cardio 4 d week = treadmill at speed 2.5, incline 3-7 - to burn 300 calories. OR LS videos 3 d/ wk - circuit room 15/15/30 lbs The importance of avoiding and breast feeding for at least 18 months after bariatric surgery was discussed in the information session and was reinforced today. Pt will purchase body composition analyzer (recommended list given to patient) and weight herself weekly. Next appt with me in 3 weeks. Text me with any questions and weekly weights. Patient is morbidly obese and is not considered stable at this time.?I spent a total of 60 minutes reviewing/updating records, examining the patient and counseling the patient on weight management as detailed above. (2) Pre-op evaluation: Code(s): Z01.818 - Encounter for other preprocedural examination (3) Sleep apnea: Code(s): G47.30 - Sleep apnea, unspecified (4) Migraine aura without headache: Code(s): G43.109 - Migraine with aura, not intractable, without status migrainosus (5) Asthma: Code(s): J45.909 - Unspecified asthma, uncomplicated (6) HTN (hypertension), benign: Code(s): I10 - Essential (primary) hypertension (7) GERD (gastroesophageal reflux disease): Code(s): K21.9 - Gastro-esophageal reflux disease without esophagitis (8) Anxiety with depression: Code(s): F41.8 - Other specified anxiety disorders Orders: Orders Vitamin B12 and Folate Today E66.01 - Morbid (severe) obesity due to excess calories, F41.8 - Other specified anxiety disorders, G47.30 - Sleep apnea, unspecified, I10 - Essential (primary) hypertension, K21.9 - Gastro-esophageal reflux disease without esophagitis, Z01.818 - Encounter for other preprocedural examination Comprehensive Met. Panel Today E66.01 - Morbid (severe) obesity due to excess calories, F41.8 - Other specified anxiety disorders, G47.30 - Sleep apnea, unspecified, I10 - Essential (primary) hypertension, K21.9 - Gastro-esophageal reflux disease without esophagitis, Z01.818 - Encounter for other preprocedural examination C Reactive Protein Today E66.01 - Morbid (severe) obesity due to excess calories, F41.8 - Other specified anxiety disorders, G47.30 - Sleep apnea, unspecified, I10 - Essential (primary) hypertension, K21.9 - Gastro-esophageal reflux disease without esophagitis, Z01.818 - Encounter for other preprocedural examination Ferritin Today E66.01 - Morbid (severe) obesity due to excess calories, F41.8 - Other specified anxiety disorders, G47.30 - Sleep apnea, unspecified, I10 - Essential (primary) hypertension, K21.9 - Gastro-esophageal reflux disease without esophagitis, Z01.818 - Encounter for other preprocedural examination Hemoglobin A1c Today E66.01 - Morbid (severe) obesity due to excess calories, F41.8 - Other specified anxiety disorders, G47.30 - Sleep apnea, unspecified, I10 - Essential (primary) hypertension, K21.9 - Gastro-esophageal reflux disease without esophagitis, Z01.818 - Encounter for other preprocedural examination Insulin Today E66.01 - Morbid (severe) obesity due to excess calories, F41.8 - Other specified anxiety disorders, G47.30 - Sleep apnea, unspecified, I10 - Essential (primary) hypertension, K21.9 - Gastro-esophageal reflux disease without esophagitis, Z01.818 - Encounter for other preprocedural examination IRON PROFILE Today E66.01 - Morbid (severe) obesity due to excess calories, F41.8 - Other specified anxiety disorders, G47.30 - Sleep apnea, unspecified, I10 - Essential (primary) hypertension, K21.9 - Gastro-esophageal reflux disease without esophagitis, Z01.818 - Encounter for other preprocedural examination Lipid Panel Today E66.01 - Morbid (severe) obesity due to excess calories, F41.8 - Other specified anxiety disorders, G47.30 - Sleep apnea, unspecified, I10 - Essential (primary) hypertension, K21.9 - Gastro-esophageal reflux disease without esophagitis, Z01.818 - Encounter for other preprocedural examination PTHI Today E66.01 - Morbid (severe) obesity due to excess calories, F41.8 - Other specified anxiety disorders, G47.30 - Sleep apnea, unspecified, I10 - Essential (primary) hypertension, K21.9 - Gastro-esophageal reflux disease without esophagitis, Z01.818 - Encounter for other preprocedural examination TSH reflex Free T4 Today E66.01 - Morbid (severe) obesity due to excess calories, F41.8 - Other specified anxiety disorders, G47.30 - Sleep apnea, unspecified, I10 - Essential (primary) hypertension, K21.9 - Gastro-esophageal reflux disease without esophagitis, Z01.818 - Encounter for other preprocedural examination Vitamin A Today E66.01 - Morbid (severe) obesity due to excess calories, F41.8 - Other specified anxiety disorders, G47.30 - Sleep apnea, unspecified, I10 - Essential (primary) hypertension, K21.9 - Gastro-esophageal reflux disease without esophagitis, Z01.818 - Encounter for other preprocedural examination Vitamin B1 Today E66.01 - Morbid (severe) obesity due to excess calories, F41.8 - Other specified anxiety disorders, G47.30 - Sleep apnea, unspecified, I10 - Essential (primary) hypertension, K21.9 - Gastro-esophageal reflux disease without esophagitis, Z01.818 - Encounter for other preprocedural examination Vitamin D 25-OH Total Today E66.01 - Morbid (severe) obesity due to excess calories, F41.8 - Other specified anxiety disorders, G47.30 - Sleep apnea, unspecified, I10 - Essential (primary) hypertension, K21.9 - Gastro-esophageal reflux disease without esophagitis, Z01.818 - Encounter for other preprocedural examination Zinc Today E66.01 - Morbid (severe) obesity due to excess calories, F41.8 - Other specified anxiety disorders, G47.30 - Sleep apnea, unspecified, I10 - Essential (primary) hypertension, K21.9 - Gastro-esophageal reflux disease without esophagitis, Z01.818 - Encounter for other preprocedural examination ECG 12 lead EKG Today E66.01 - Morbid (severe) obesity due to excess calories, F41.8 - Other specified anxiety disorders, G47.30 - Sleep apnea, unspecified, I10 - Essential (primary) hypertension, K21.9 - Gastro-esophageal reflux disease without esophagitis, Z01.818 - Encounter for other preprocedural examination FL upper GI w air Today E66.01 - Morbid (severe) obesity due to excess calories, F41.8 - Other specified anxiety disorders, G47.30 - Sleep apnea, unspecified, I10 - Essential (primary) hypertension, K21.9 - Gastro-esophageal reflux disease without esophagitis, Z01.818 - Encounter for other preprocedural examination Complete Blood Count Auto Diff Today E66.01 - Morbid (severe) obesity due to excess calories, F41.8 - Other specified anxiety disorders, G47.30 - Sleep apnea, unspecified, I10 - Essential (primary) hypertension, K21.9 - Gastro- esophageal reflux disease without esophagitis, Z01.818 - Encounter for other preprocedural examination H Pylori Breath Test Today E66.01 - Morbid (severe) obesity due to excess calories, F41.8 - Other specified anxiety disorders, G47.30 - Sleep apnea, unspecified, I10 - Essential (primary) hypertension, K21.9 - Gastro-esophageal reflux disease without esophagitis, Z01.818 - Encounter for other preprocedural examination US abdomen comp w elastography Today E66.01 - Morbid (severe) obesity due to excess calories, F41.8 - Other specified anxiety disorders, G47.30 - Sleep apnea, unspecified, I10 - Essential (primary) hypertension, K21.9 - Gastro- esophageal reflux disease without esophagitis, Z01.818 - Encounter for other preprocedural examination XR chest 2V Today E66.01 - Morbid (severe) obesity due to excess calories, F41.8 - Other specified anxiety disorders, G47.30 - Sleep apnea, unspecified, I10 - Essential (primary) hypertension, K21.9 - Gastro-esophageal reflux disease without esophagitis, Z01.818 - Encounter for other preprocedural examination Referrals Behavioral Health Referral E66.01 - Morbid (severe) obesity due to excess calories, F41.8 - Other specified anxiety disorders, G47.30 - Sleep apnea, unspecified, I10 - Essential (primary) hypertension, K21.9 - Gastro-esophageal reflux disease without esophagitis, Z01.818 - Encounter for other preprocedural examination Nutrition/Dietitian Referral E66.01 - Morbid (severe) obesity due to excess calories, F41.8 - Other specified anxiety disorders, G47.30 - Sleep apnea, unspecified, I10 - Essential (primary) hypertension, K21.9 - Gastro-esophageal reflux disease without esophagitis, Z01.818 - Encounter for other preprocedural examination Coding Level of Care Code New Pt Level 5 (73539) Diagnoses Morbid obesity E66.01 Pre-op evaluation Z01.818 Sleep apnea G47.30 Migraine aura without headache G43.109 Asthma J45.909 HTN (hypertension), benign I10 GERD (gastroesophageal reflux disease) K21.9 Anxiety with depression F41.8
[2022-10-17 13:55] VITALS: BP 152/69; PULSE 112; TEMP 36.1; O2SAT 97; BMI 61.0
== END 2022-10-17 15:07 | disposition home or self-care (01) ==
PROVIDERS: PCP Internal Medicine; Visit Provider Physician Assistant
DX: E66.01 Morbid (severe) obesity due to excess calories (principal); Z68.44 Body mass index [BMI] 60.0-69.9, adult
CPT/HCPCS: 99205

== ENCOUNTER → 2022-10-17 13:42 | Outpatient (BNVA) | payer BC, SELFPAY | PROVIDERS: PCP Internal Medicine; Visit Provider Physician Assistant ==

== ENCOUNTER 2022-10-20 09:52 | Outpatient (REF) | payer BC, SELFPAY ==
--- NOTE | ~2022-10-20 | XR_ITS ---
EXAMINATION: XR CHEST CLINICAL INFORMATION: Reason for Exam E66.01 - Morbid (severe) obesity due to excess calories COMPARISON: None TECHNIQUE: 2 views of the chest FINDINGS: Lines and tubes: None. Clear lungs. No pleural effusion. No pneumothorax. Ectatic thoracic aorta. Normal cardiac silhouette. XR/XR chest 2V IMPRESSION: 1. Ectatic thoracic aorta. 2. Clear lungs.
[2022-10-20 10:27] LABS: MANUAL DIFF FLAG NO
[2022-10-20 10:57] LABS: Basophils Percent Auto 0.5 % (0-2); Eosinophils Absolute Auto 0.2 X10*3/uL (0.0-0.4); Eosinophils Percent Auto 2.9 % (0-4); Hematocrit 38.3 % (37.0-47.0); Hemoglobin 12.6 g/dl (12.0-16.0); Imm Gran Abs Auto 0.04 X10*3/uL (0.00-0.03); Imm Gran Pct Auto 0.5 % (0.0-0.4); Lymphocytes Absolute Auto 2.7 X10*3/uL (1.2-4.9); Lymphocytes Percent Auto 32.9 % (20-40); Mean Corpuscular HGB Conc 32.9 g/dl (31.0-35.0); Mean Corpuscular Hemoglobin 28.8 pg (27.0-33.0); Mean Corpuscular Volume 87.6 fL (80.0-98.0); Mean Platelet Volume 10.2 fL (9.4-12.3); Monocytes Absolute Auto 0.5 X10*3/uL (0.1-1.2); Monocytes Percent Auto 6.2 % (2-11); Neutrophils Absolute Auto 4.6 x10*3/uL (2.0-8.3); Platelet Count 280 X10*3/uL (160-400); Red Blood Count 4.37 X10*6/uL (4.20-5.50); Red Cell Distribution Width 12.7 % (11.0-16.0); White Blood Count 8.1 X10*3/uL (4.8-10.8)
[2022-10-20 11:49] LABS: Alanine Aminotransferase 40 U/L (0-31); Albumin Level 3.8 g/dL (3.5-5.0); Alkaline Phosphatase 74 U/L (39-117); Anion Gap 12 (12-20); Aspartate Amino Transferase 29 U/L (5-31); Bilirubin Total 0.4 mg/dL (0.0-1.0); Blood Urea Nitrogen 13 mg/dL (9-16); C Reactive Protein 0.51 mg/dL (< or = 0.50); Calcium 9.2 mg/dL (8.4-10.2); Carbon Dioxide 26 mmol/L (22-29); Chloride 105 mmol/L (96-108); Cholesterol 206 mg/dL (<200); Estimated Glomerular Filt Rate > 60; Glucose Random 116 mg/dL (60-115); HDL Cholesterol 45 mg/dL (>40); Iron 91 mcg/dL (30-160); LDL Cholesterol Calculated 117 mg/dL (<100); Percent Iron Saturation 30 % (15-50); Potassium 4.3 mmol/L (3.3-5.1); Sodium 139 mmol/L (135-145); Total Iron Binding Capacity 299 mcg/dL (228-428); Total Protein 6.9 g/dL (6.5-8.0); Triglycerides 221 mg/dL (<150); Unsaturated Iron Binding 208 ug/dL
[2022-10-20 12:05] LABS: Ferritin 60 ng/mL (10-122); TSH reflex Free T4 0.57 uIU/mL (0.32-4.0); Vitamin D 25-OH Total 27.4 ng/mL (>30)
[2022-10-20 12:10] LABS: Estimated Average Glucose 117 mg/dL; Hemoglobin A1c % 5.7 % (<6.0)
[2022-10-20 12:20] LABS: Folate 11.8 ng/mL (> or = 4.0); Vitamin B12 359 pg/mL (200-900)
[2022-10-23 15:28] LABS: H Pylori Breath Test Negative (Negative)
[2022-10-23 17:09] LABS: Calcium (PTHI) 9.2 mg/dL (8.6-10.2); PTHI 34 pg/mL (16-77)
[2022-10-24 06:10] LABS: Zinc 79 mcg/dL (60-130)
[2022-10-25 02:19] LABS: Vitamin A 49 mcg/dL (38-98)
[2022-10-26 07:38] LABS: Vitamin B1 11 nmol/L (8-30)
== END 2022-10-20 09:53 | disposition home or self-care (01) ==
LOC: HO.LAB 09:52
PROVIDERS: PCP Internal Medicine; Visit Provider Physician Assistant
DX: Z01.818 Encounter for other preprocedural examination (principal); E66.01 Morbid (severe) obesity due to excess calories; G47.30 Sleep apnea, unspecified; I10 Essential (primary) hypertension; K21.9 Gastro-esophageal reflux disease without esophagitis; F41.8 Other specified anxiety disorders
CPT/HCPCS: 36415; 71046; 80053; 80061; 82306; 82607; 82728; 82746; 83013; 83036; 83540; 83970; 84425; 84443; 84590; 84630; 85025; 86140

== ENCOUNTER → 2022-10-26 12:44 | Outpatient (REF) | payer BC, SELFPAY ==
--- NOTE | 2022-10-26 12:53 | ECG_ITS ---
Test Reason : e66.01 Blood Pressure : / mmHG Vent. Rate : 078 BPM Atrial Rate : 078 BPM P-R Int : 166 ms QRS Dur : 084 ms QT Int : 374 ms P-R-T Axes : 049 020 035 degrees QTc Int : 426 ms Normal sinus rhythm Normal ECG No previous ECGs available Referred By: Inge Gaona Electronically Signed By:JUSTIN ALMARAZ
== END ==
LOC: HO.CARD 12:44
PROVIDERS: PCP Internal Medicine; Visit Provider Physician Assistant
DX: Z01.818 Encounter for other preprocedural examination (principal); I10 Essential (primary) hypertension; E66.01 Morbid (severe) obesity due to excess calories
CPT/HCPCS: 93005

== ENCOUNTER → 2022-11-08 15:48 | Outpatient (BNVA) | payer BC, SELFPAY | PROVIDERS: PCP Internal Medicine; Visit Provider Dietitian, Registered | DX: E66.9 Obesity, unspecified (principal); Z71.3 Dietary counseling and surveillance | CPT/HCPCS: 97802 ==

== ENCOUNTER 2022-11-13 11:06 | Outpatient (AMB) | payer BC, SELFPAY ==
--- NOTE | 2022-11-13 10:59 | A.OFFWM_ITS ---
Intake Intake Visit Reasons: VIDEO BH Intake Allergies Sulfa (Sulfonamide Antibiotics) [SULFA(SULFONAMIDE ANTIBIOTICS)] Allergy (Unknown, Verified 10/17/22 14:00) YEAST INFECTION, yeast infections hard shell seafood Allergy (Unknown, Uncoded 10/17/22 14:00) swelling of throat, vomiting seafood Allergy (Unknown, Uncoded 10/17/22 14:00) unknown seasonal Allergy (Unknown, Uncoded 10/17/22 14:00) unknown SHELLFISH Allergy (Unknown, Uncoded 10/17/22 14:00) RASH [facility] Medical History (Updated 10/24/22 @ 15:32 by Inge Gaona PA-C) Migraine aura without headache Sleep apnea Asthma Family History Paternal Grandmother Breast CA Social History Alcohol intake: current Alcohol intake frequency: holidays/special occasions only Substance Use Type: Marijuana Sexual orientation: Straight/Heterosexual Gender identity: Female Behavioral Health Assessment Weight Management Therapy Therapy Notes Details Patient is looking to have weight loss surgery to help improve her health and quality of life. Pt has a family therapist that she sees with her family. She reported that she takes medication for anxiety/depression prescribed by her doctor. She stated that after she had her second baby, she started to feel very anxious. Then suffered a loss and started to have increase in depression. no history of problems with drugs or alcohol, and has never been a dmitted psychiatrically. No history of self harming behaviors or suicide attempts, or legal problems. Presenting Concerns Referral Source provider Reason for referral weight loss surgery evaluation Precipitating Event obesity Living Situation Current Living Situation Own At risk of losing current housing? No Satisfied with current living situation? Yes Comments Pt lives with her and three children ages 11, 8 and 5 years old. Food/Weight/Diet Expectations of change weight loss and maintenance History/Relationship with food She reported being an emotional eater, loves carbs, mostly salty foods. Reflects back on many things were food driven growing up. She reported that she would over eat and snack often and before bed. Also soda addict throughout college and first part of her marriage. Also takeout and eating out often. History/Relationship with weight Pt is at her heaviest weight. She reported being overweight since 2 years old. History/Relationship with dieting 30lb weight loss from another weight management program in 2007 (she weighed 260lbs at that time). Started dieting at age 7. Also weight loss camp when she was 11 years old that was helpful. Binge Eating Do you frequently eat large amounts of food in short periods of time, not feeling physically hungry? Yes Do you feel out of control when you eat a large amount of food in a short period of time? No Do you eat large amounts of food rapidly and typically alone? Yes Night Eating Do you wake up at least once during the night to eat? No If you wake up in the night, do you find that it is necessary to eat something in order to fall back asleep? No Social History Family history and relationship Pt is and has three children. She was born and raised in [place] by both biological parents and one sister. Patient denied any history of trauma or abuse. 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 Pt denied any legal issues. Education Highest grade completed college degree Preferred learning style Auditory, Verbal, Written, Learn by doing and Visual Currently enrolled in educational program? No Interested in further educational program? 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 No Meaningful activities walking, knitting Financial Situation Describe current financial situation Comfortable Financial assistance? None Service Service? No Mental Health and Addiction Treatment Current/Past substance abuse? No Current/Past addictive behavior concerns? No Medical and Physical Health Summary Physical exam in the last year? Yes Pain Screening Current pain? No Pain in the last few months? No Medications Is the patient compliant with medications? Yes Does the patient have Cooper Guardian in place? Not applicable Does the patient use complimentary health approaches? No Trauma/Abuse History History of trauma? No Questionnaires PHQ-9 Over the last 2 weeks, how often have you been bothered by any of the following problems? 1. Little interest or pleasure in doing things: several days 2. Feeling down, depressed, or hopeless: several days 3. Trouble falling or staying asleep, or sleeping too much: nearly every day 4. Feeling tired or having little energy: nearly every day 5. Poor appetite or overeating: more than half the days 6. Feeling bad about yourself - or that you are a failure or have let yourself or your family down: more than half the days 7. Trouble concentrating on things, such as reading the newspaper or watching television: several days 8. Moving or speaking so slowly that other people could have noticed. Or the opposite - being so fidgety or restless that you have been moving around a lot more than usual: not at all 9. Thoughts that you would be better off or of hurting yourself in some way: not at all Total score: 13 Depression Screening Interpretation: Positive Depression Screening Done: Yes Source: Developed by Drs. Augustine Lakhani, Nikkie Cazares, Joey Johnston and colleagues, with an educational katherin from [employer]. Binge Eating Scale Group 1 A. I don't feel self-conscious about my wt. or body size when I'm with others. B. I feel concerned about how I look to others, but it normally does not make me fell disappointed with myself C. I do get self-conscious about my appearance and wt. which makes me feel disappointed in myself. D. I feel very self-conscious about my wt. and frequently I feel intense shame and disgust for myself. I try to avoid social contacts because of my self- consciousness. Response Group 1: C Group 2 A. I don't have any difficulty eating slowly in the proper manner. B. Although I seem to gobble down foods, I don't end up feeling stuffed because of eating to much. C. At times, I tend to eat quickly and then, I feel uncomfortably full afterwards. D. I have the habit of bolting down my food, without really chewing it. When this happens I usually feel uncomfortably stuffed because I've eaten to much. Response Group 2: B Group 3 A. I feel capable to control my eating urges when I want to. B. I feel like I have failed to control my eating more than the average person. C. I feel utterly helpless when it comes to feeling in control of my eating urges. D. Because I feel so helpless about controlling my eating I have become very desperate about trying to get control. Response Group 3: B Group 4 A. I don't have the habit of eating when I'm bored. B. I sometimes eat when I'm bored, but often I'm able to get busy and get my mind off food. C. I have a regular habit of eating when I'm bored, but occasionally, I can use some other activity to get my mind off eating. D. I have a strong habit of eating when I'm bored. Nothing seems to help me breath the habit. Response Group 4: C Group 5 A. I'm usually physically hungry when I eat something. B. Occasionally, I eat something on impulse even though I really am not hungry. C. I have the regular habit of eating foods, that I might not really enjoy, to satisfy a hungry feeling even though physically, I don't need the food. D. Although I'm not physically hungry, I get a hungry feeling in my mouth that only seems to be satisfied when I eat a food, like sandwich, that fills my mouth. Sometimes, when I eat the food to satisfy my mouth hunger, I then spit the food out so I won't gain weight. Response Group 5: B Group 6 A. I don't feel any guilt or self-hate after I overeat. B. After I overeat, occasionally I feel guilt or self-hate. C. Almost all the time I experience strong guilt or self-hate after I overeat. Response Group 6: C Group 7 A. I don't lose total control of my eating when dieting even after periods when I overeat. B. Sometimes when I eat a forbidden food on a diet, I feel like I blew it and eat even more. C. Frequently, I have the habit of saying to myself, I've blown it now, why not go all the way, when I overeat on a diet. When that happens I eat more. D. I have a regular habit of starting a strict diets for myself but I break the diets by going on an eating binge. My life seems to be either a feast or famine. Response Group 7: B Group 8 A. I rarely eat so much food that I feel uncomfortably stuffed afterwards. B. Usually about once a month, I each such a quantity of food, I end up feeling very stuffed. C. I have regular periods during the month when I eat large amounts of food, either at mealtime or at snacks. D. I eat so much food that I regularly feel quite uncomfortable after eating and sometimes a bit nauseous. Response Group 8: B Group 9 A. My level of calorie intake does not go up very high or go down very low on a regular basis. B. Sometimes after I overeat, I will try to reduce my caloric intake to almost nothing to compensate for the excess calories I've eaten. C. I have a regular habit of overeating during the night. It seems that my routine is not to be hungry in the morning but overeat in the evening. D. In my adult years, I have had week-long periods where I practically starve myself. This follows periods when I overeat. It seems I live a life of either feast or famine. Response Group 9: C Group 10 A. I usually am able to stop eating when I want to. I know when enough is enough. B. Every so often, I experience a compulsion to eat which I can't seem to control. C. Frequently, I experience strong urges to eat which I seem unable to control, but at other times I can control my eating urges. D. I feel incapable of controlling urges to eat. I have a fear of not being able to stop eating voluntarily. Response Group 10: C Group 11 A. I don't have any problem stopping eating when I feel full. B. I usually can stop eating when I feel full but occasionally overeat leaving me feeling uncomfortably stuffed. C. I have a problem stopping eating once I start and usually I feel uncomfortably stuffed after I eat a meal. D. Because I have a problem not being able to stop eating when I want, I sometimes have to induce vomiting to relieve my stuffed feeling. Response Group 11: B Group 12 A. I seem to eat just as much when I'm with others, Family social gatherings as when I'm by myself. B. Sometimes, when I'm with other persons, I don't eat as much as I want to eat because I'm self-conscious about my eating. C. Frequently, I eat only a small amount of food when others are present, because I'm very embarrassed about my eating. D. I feel so ashamed about overeating that I pick times to overeat when I know no one will see me. I feel like a closet eater. Response Group 12: C Group 13 A. I eat three meals a day with only an occasional between meal snack. B. I eat 3 meals a day, but I also normally snack between meals. C. When I am snacking heavily, I get in the habit of skipping regular meals. D. There are regular periods when I seem to be continually eating, with no planned meals. Response Group 13: B Group 14 A. I don't think much about trying to control unwanted eating urges. B. At least some of the time, I feel my thoughts are pre-occupied with trying to control my eating urges. C. I feel that frequently I spend much time thinking about how much I ate or about trying not to eat anymore. D. It seems to me that most of my waking hours are pre-occupied by thoughts about eating or not eating. I feel like I'm constantly struggling not to eat. Response Group 14: B Group 15 A. I don't think about food a great deal. B. I have strong craving for food but they last only for brief periods of time. C. I have days when I can't seem to think about anything else but food. D. Most of my days seem to be pre-occupied with thoughts about food. I feel like I live to eat. Response Group 15: B Group 16 A. I usually know whether or not I'm physically hungry. I take the right portion of food to satisfy me. B. Occasionally, I feel uncertain about knowing whether or not I'm physically hungry. A these times it's hard to know how much food I should take to satisfy me. C. Even though I might know how many calories I should eat, I don't have any idea what is a normal amount of food for me. Response Group 16: B Binge Eating Score: 22 Score less than 17 Minimal Risk Score between 18-26 Moderate Risk Score between 27-46 High Risk Assessment & Plan Assessment & Plan (1) Anxiety with depression: Code(s): F41.8 - Other specified anxiety disorders (2) Morbid obesity: Code(s): E66.01 - Morbid (severe) obesity due to excess calories Plan Patient will be seen again to help address symptoms of depression and anxiety. She has no other significant barriers. Telehealth Telehealth Location of provider rendering services: other Location of patient: other Patient Identification confirmed using: Name, : Yes Telehealth method: video Patient verbally consented to treatment: Yes Patient verbally consented to billing insurance company: Yes Patient informed of any privacy concerns related to visit: Yes Minutes spent on Phone/Video with Pt.: 45 Coding Level of Care Code Tele Psy Diag Eval (37898) Diagnoses Anxiety with depression F41.8 Morbid obesity E66.01 Time Spent (min) 45
== END 2022-11-13 11:35 | disposition home or self-care (01) ==
LOC: HO.HBST 11:06
PROVIDERS: PCP Internal Medicine; Visit Provider Counselor Mental Health
DX: F41.8 Other specified anxiety disorders (principal); E66.01 Morbid (severe) obesity due to excess calories; Z68.43 Body mass index [BMI] 50.0-59.9, adult
CPT/HCPCS: 90791

== ENCOUNTER → 2022-11-13 11:06 | Outpatient (BNVA) | payer BC, SELFPAY | PROVIDERS: PCP Internal Medicine; Visit Provider Counselor Mental Health ==

== ENCOUNTER 2022-11-15 16:28 | Outpatient (AMB) | payer BC, SELFPAY ==
--- NOTE | 2022-11-15 15:34 | MHC.OFFVISWM ---
Intake VS Expanded 11/15/22 16:38 Height 5 ft 3 in Weight 326 lb BMI 57.7 Intake Visit Reasons: VIDEO F/U SWL Allergies Sulfa (Sulfonamide Antibiotics) [SULFA(SULFONAMIDE ANTIBIOTICS)] Allergy (Unknown, Verified 10/17/22 14:00) YEAST INFECTION, yeast infections hard shell seafood Allergy (Unknown, Uncoded 10/17/22 14:00) swelling of throat, vomiting seafood Allergy (Unknown, Uncoded 10/17/22 14:00) unknown seasonal Allergy (Unknown, Uncoded 10/17/22 14:00) unknown SHELLFISH Allergy (Unknown, Uncoded 10/17/22 14:00) RASH HPI HPI Comments History of Present Illness Details This is the patients second appt for SWL. Starting weight was 344.9 lbs on 10/24/22. TBWL is 18.9 lbs or 5.5% TBWL. Meal plan: 7:30am - Orgain with 2% lactose free milk 11:15 am - second shake - Quest 3pm - One or Quest bar, getting tired of sweet things 6pm - 6 oz protein and 6 oz vegetable - stopped fruit was too full 9:30 pm - yogurt with fruit Exercise - 3 walks this week at lunch for 20 mintues. - free weights with 3 lbs Pre op work up completed as follows: SWL classes - 05/19 appts - 12/04 appts - follow up on 12/06 H pylori - negative Labs - high cholesterol, low vit d CXR - normal ECG - ectatic thoracic aorta ULS- 11/23 UG! 12/26 ECHO - 11/23 CT chest - not scheduled yet [facility] Medical History (Updated 10/24/22 @ 15:32 by Inge Gaona PA-C) Migraine aura without headache Sleep apnea Asthma Family History Paternal Grandmother Breast CA Social History Alcohol intake: current Alcohol intake frequency: holidays/special occasions only Substance Use Type: Marijuana Sexual orientation: Straight/Heterosexual Gender identity: Female Assessment & Plan Assessment & Plan (1) Morbid obesity: Code(s): E66.01 - Morbid (severe) obesity due to excess calories Plan: Great start with 5.4% TBWL. meal plan - can switch to cottage cheese or Ostrim stick for non- sweet options at 3pm. Otherwise no changes Exercise - needs to start more intense routine now. 5d per week between the two. LS 2 miles - 30 minutes [employer] All upcoming appts reviewed, encouraged to continue to text me weekly weights and questions. Next appt 3 weeks with me Patient is still morbidly obese and is not considered stable at this time. I spent 30 minutes in total speaking with the patient via video conference counseling , reviewing records and charting in patients chart. . (2) Sleep apnea: Code(s): G47.30 - Sleep apnea, unspecified (3) Ectatic thoracic aorta: Code(s): I77.810 - Thoracic aortic ectasia Plan: Griselda is scheduled for ECHO on 11/[address] chest has not been scheduled yet. (4) HTN (hypertension), benign: Code(s): I10 - Essential (primary) hypertension (5) GERD (gastroesophageal reflux disease): Code(s): K21.9 - Gastro-esophageal reflux disease without esophagitis Telehealth Telehealth Location of provider rendering services: practice address Location of patient: address on file Patient Identification confirmed using: Name, : Yes Telehealth method: video Patient verbally consented to treatment: Yes Patient verbally consented to billing insurance company: Yes Patient informed of any privacy concerns related to visit: Yes Coding Level of Care Code Tele Est Pt Level 4 (34807) Diagnoses Morbid obesity E66.01 Sleep apnea G47.30 Ectatic thoracic aorta I77.810 HTN (hypertension), benign I10 GERD (gastroesophageal reflux disease) K21.9
[2022-11-15 16:38] VITALS: BMI 57.7
== END 2022-11-15 16:57 | disposition home or self-care (01) ==
LOC: HO.HBS 16:28
PROVIDERS: PCP Internal Medicine; Visit Provider Physician Assistant
DX: E66.01 Morbid (severe) obesity due to excess calories (principal); Z68.43 Body mass index [BMI] 50.0-59.9, adult; I77.810 Thoracic aortic ectasia
CPT/HCPCS: 99214

== ENCOUNTER → 2022-11-15 16:28 | Outpatient (BNVA) | payer BC, SELFPAY | PROVIDERS: PCP Internal Medicine; Visit Provider Physician Assistant ==

== ENCOUNTER 2022-11-23 09:05 | Outpatient (REF) | payer BC, SELFPAY ==
--- NOTE | ~2022-11-23 | US_ITS ---
EXAMINATION: US COMPLETE ABDOMEN WITH LIVER ELASTOGRAPHY CLINICAL INFORMATION: Morbid obesity. COMPARISON: CT abdomen and pelvis dated 04/13/2022. TECHNIQUE: Real-time imaging of the abdominal viscera. Noninvasive ultrasound liver fibrosis assessment is performed using Perry ElastPQ point quantification shear wave elastography (2D-SWE) with a C5-2 MHz transducer. Multiple elastography samples are obtained. FINDINGS: PANCREAS: Normal. The visualized pancreatic head and body are normal in appearance. The remainder of the pancreas is obscured from visualization by the overlying bowel gas. ABDOMINAL AORTA: The proximal, middle, and distal aortic segments are normal in caliber. INFERIOR VENA CAVA: Visualized portions are normal. LIVER: The liver demonstrates normal contour and increased echogenicity. No focal lesion or intrahepatic biliary duct dilatation. The right lobe measures 20.4 cm in length. The left lobe measures 16.0 cm in length. Portal flow is towards the liver (hepatopetal). Shear wave liver elastography median stiffness is 1.75 m/s (reference: normal median stiffness is 1.3 m/s or less). IQR/median stiffness to assess sampling precision is 0.22 (reference: good quality data set is IQR/median stiffness of 0.15 or less). GALLBLADDER: Normal. The gallbladder is partially contracted, without evidence of stones, sludge, polyps, wall thickening or pericholecystic fluid. COMMON BILE DUCT: Normal in caliber measuring 0.4 cm in diameter. RIGHT KIDNEY: Normal. No hydronephrosis. No renal calculi or focal parenchymal lesions. The kidney measures 13.0 cm in maximum dimension. LEFT KIDNEY: Normal. No hydronephrosis. No renal calculi or focal parenchymal lesions. The kidney measures 13.2 cm in maximum dimension. SPLEEN: Normal. The spleen measures 14.3 cm in maximum dimension. FREE FLUID: None. US/US abdomen comp w elastography IMPRESSION: 1. There is hepatosplenomegaly. 2. There is generalized increase in hepatic echotexture, consistent with fatty infiltration or hepatocellular disease. Please correlate clinically. No focal hepatic mass or intrahepatic biliary dilatation is seen. 3. Liver elastography: Although measurements are suggestive of compensated advanced chronic liver disease, there is statistical variability of the sampling which decreases accuracy. REFERENCE: Society of Radiologists in Ultrasound Liver Stiffness Thresholds (2020): LIVER STIFFNESS THRESHOLDS: *Liver Stiffness equal or less than 1.3 m/s: High probability of being normal. *Liver Stiffness less than 1.7 m/s: In the absence of other known clinical signs, rules out compensated advanced chronic liver disease. *Liver Stiffness 1.7-2.1 m/s: Suggestive of compensated advanced chronic liver disease but need further test for confirmation. *Liver Stiffness over 2.1 m/s: Rules in compensated advanced chronic liver disease. *Liver Stiffness over 2.4 m/s: Suggestive of clinically significant portal hypertension. QUALITY OF DATA SET: *IQR/Median value equal or less than 0.15 implies a quality data set. *IQR/Median value over 0.15 implies a poor quality data set. SIGNIFICANT CHANGE FROM PRIOR EXAM: Significant change if liver stiffness measurement is 10% or greater from prior exam. OTHER CONSIDERATIONS: The stage of liver fibrosis may be overestimated in the setting of acute hepatitis, liver inflammation, elevated liver function tests, hepatic vascular congestion, obstructive cholestasis, non-fasting state, and infiltrative diseases such as amyloidosis and lymphoma. In some patients with NAFLD, the liver stiffness thresholds for compensated advanced chronic liver disease may be lower. In causes other than viral hepatitis and NAFLD, liver stiffness thresholds are not well established.
--- NOTE | 2022-11-23 10:04 | CA_ITS ---
Transthoracic Echocardiogram Patient (Last, First, Middle): Becca Bradshaw A Gender: Female Date of : 1985 Age: 37 Procedure Date: 11/23/2022 Procedure Type: Transthoracic Echocardiogram Location: OP Height: 160.02 cm Weight: 149.23 kg BSA: 2.39 m2 Heart Rate: bpm BP: 130 / 82 mmHg Sewer Line Photo Inspector: Referring MD: Inge Gaona PA-C Symptoms: G47.30 SLEEP APNEA, I77.810 - Thoracic aortic ectasia Study Quality: Fair w Contrast ECG Rhythm: Sinus Conclusions: - Normal left ventricular size and systolic function. There is severely increased left ventricular wall thickness. The visually estimated ejection fraction is between 55-60%. - Normal right ventricular cavity size. There is borderline right ventricular systolic function. Findings Procedure Information Contrast agent, definity, is being given per protocol without apparent complications. Left Ventricle Normal left ventricular size and systolic function. There is severely increased left ventricular wall thickness. The visually estimated ejection fraction is between 55-60%. There is no evidence of regional wall motion abnormalities. Diastolic function is normal for age. Right Ventricle Normal right ventricular cavity size. There is borderline right ventricular systolic function. Atria The left atrium is normal in size. Aortic Valve Normal aortic valve structure and function. There is no aortic valve stenosis. There is no aortic valve regurgitation. Mitral Valve The mitral valve appears normal. There is no mitral valve regurgitation. There is no mitral valve stenosis. Pulmonic Valve The pulmonic valve is likely normal. Tricuspid Valve Likely normal tricuspid valve structure and function. Normal right atrial pressure. There is no evidence of pulmonary hypertension. Great Vessels All visible segments of the aorta are normal in size. Venous The inferior vena cava is normal in size and collapses greater than 50% with inspiration. Pericardium/Pleural There is no evidence of pericardial effusion. Prior Study Comparison No prior study available for comparison. Measurements 2D Linear Measurements IVSd: 1.43 0.6-0.9/0.6-1.0 cm LVIDd: 4.15 3.9-5.3/4.2-5.9 cm LVIDd Index: 1.74 2.4-3.2/2.2-3.1 cm/m2 LVIDs: 2.92 2.0-3.6 cm LVPWd: 1.40 0.7-1.1 cm Ao Root: 2.60 2.1-3.5 cm LA Diam: 4.20 2.7-3.8/3.0-4.0 cm LAIDs Index: 1.76 1.5-2.3 cm/m2 LV Mass: 279.34 67-162/88-224 g LV Mass Index: 116.88 43-95/49-115 g/m2 LVOT Diam: 2.20 3.0+(-)1.3 cm 2D Systolic Function EF 4C: 60.70 >55% EF 2C: 50.20 >55% EF BiP: 55.60 >55% Mitral Valve MV Pk E: 0.65 MV PK A: 0.75 MV Decel Time: 257.00 E/A: 0.90 E'Lateral: 9.46 E'Medial: 9.03 E/E' Med: 7.20 E/E' Lat: 6.80 PHT: 75.00 MVA PHT: 2.93 Decel Meade: 2.52 Aortic Valve AoV Pk Yaw: 1.52 AoV Mn Yaw: 1.08 AoV VTI: 0.34 AoV Pk Grad: 9.00 Aov Mn Grad: 5.00 KASIE Cont.VTI: 2.16 LVOT LVOT Pk Yaw: 0.92 LVOT Mn Yaw: 0.61 LVOT VTI: 0.19 LVOT Pk Grad: 3.00 LVOT Mn Grad: 2.00 LVOT Diam: 2.20 LVOT Area: 3.80 Diastolic Function MV Pk E: 0.65 MV Pk A: 0.75 E/A: 0.90 E'Medial: 9.03 E/E' Med: 7.20 E' Laterial: 9.46 E/E' Lat: 6.80 Right Ventricle TAPSE (mm): 19.00 TVS' Yaw: 9.00 Tricuspid Valve TR Pk Yaw: 2.49 TR Pk Grad: 25.00 RA Press: 3.00 RVSP: 28.00 Great Vessels Aorta Ao Root-2D: 2.60 2.0-3.7 cm Ao Asc: 2.60 2.1-3.4 cm Ao Arch: 2.50 Pulmonary Valve PV Pk Yaw: 0.99 Peak PV Grad: 4.00 Updated in Other Vendor System with Status of Final Jax Hurley MD electronically signed on 11/25/2022 7:48:19 PM with status of Final
== END 2022-11-23 09:06 | disposition home or self-care (01) ==
LOC: HO.US 09:05
PROVIDERS: PCP Internal Medicine; Visit Provider Physician Assistant
DX: Z01.818 Encounter for other preprocedural examination (principal); E66.01 Morbid (severe) obesity due to excess calories; I10 Essential (primary) hypertension; K21.9 Gastro-esophageal reflux disease without esophagitis; F41.8 Other specified anxiety disorders; I77.810 Thoracic aortic ectasia
CPT/HCPCS: 76705; 76981; 93306; Q9957

== ENCOUNTER → 2022-11-23 10:04 | Outpatient (BNV) | payer BC, SELFPAY | PROVIDERS: PCP Internal Medicine; Visit Provider Internal Medicine Cardiovascular Disease | DX: I10 Essential (primary) hypertension (principal); G47.30 Sleep apnea, unspecified; I77.810 Thoracic aortic ectasia | CPT/HCPCS: 93306 ==

== ENCOUNTER 2022-12-04 11:54 | Outpatient (AMB) | payer BC, SELFPAY ==
--- NOTE | 2022-12-04 15:16 | MHC.WMTHER ---
Intake Intake Visit Reasons: VIDEO F/U Allergies Sulfa (Sulfonamide Antibiotics) [SULFA(SULFONAMIDE ANTIBIOTICS)] Allergy (Unknown, Verified 10/17/22 14:00) YEAST INFECTION, yeast infections hard shell seafood Allergy (Unknown, Uncoded 10/17/22 14:00) swelling of throat, vomiting seafood Allergy (Unknown, Uncoded 10/17/22 14:00) unknown seasonal Allergy (Unknown, Uncoded 10/17/22 14:00) unknown SHELLFISH Allergy (Unknown, Uncoded 10/17/22 14:00) RASH [facility] Medical History (Updated 10/24/22 @ 15:32 by Inge Gaona PA-C) Migraine aura without headache Sleep apnea Asthma Family History Paternal Grandmother Breast CA Social History Alcohol intake: current Alcohol intake frequency: holidays/special occasions only Substance Use Type: Marijuana Sexual orientation: Straight/Heterosexual Gender identity: Female Behavioral Health Assessment Weight Management Therapy Therapy Notes Details Patient reported that she is doing well overall in the program. Improvement in energy and mood. She discussed her struggle with incorporating and starting consistent exercise routine. We strategized how to create this new habit and implement it into her day through planning, visual que, and time management. Patient is looking to have weight loss surgery to help improve her health and quality of life. Pt has a family therapist that she sees with her family. She reported that she takes medication for anxiety/depression prescribed by her doctor. She stated that after she had her second baby, she started to feel very anxious. Then suffered a loss and started to have increase in depression. no history of problems with drugs or alcohol, and has never been admitted psychiatrically. No history of self harming behaviors or suicide attempts, or legal problems. Presenting Concerns Referral Source provider Reason for referral weight loss surgery evaluation Precipitating Event obesity Living Situation Current Living Situation Own At risk of losing current housing? No Satisfied with current living situation? Yes Comments Pt lives with her and three children ages 11, 8 and 5 years old. Food/Weight/Diet Expectations of change weight loss and maintenance History/Relationship with food She reported being an emotional eater, loves carbs, mostly salty foods. Reflects back on many things were food driven growing up. She reported that she would over eat and snack often and before bed. Also soda addict throughout college and first part of her marriage. Also takeout and eating out often. History/Relationship with weight Pt is at her heaviest weight. She reported being overweight since 2 years old. History/Relationship with dieting 30lb weight loss from another weight management program in 2007 (she weighed 260lbs at that time). Started dieting at age 7. Also weight loss camp when she was 11 years old that was helpful. Binge Eating Do you frequently eat large amounts of food in short periods of time, not feeling physically hungry? Yes Do you feel out of control when you eat a large amount of food in a short period of time? No Do you eat large amounts of food rapidly and typically alone? Yes Night Eating Do you wake up at least once during the night to eat? No If you wake up in the night, do you find that it is necessary to eat something in order to fall back asleep? No Social History Family history and relationship Pt is and has three children. She was born and raised in [place] by both biological parents and one sister. Patient denied any history of trauma or abuse. 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 Pt denied any legal issues. Education Highest grade completed college degree Preferred learning style Auditory, Verbal, Written, Learn by doing and Visual Currently enrolled in educational program? No Interested in further educational program? 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 No Meaningful activities walking, knitting Financial Situation Describe current financial situation Comfortable Financial assistance? None Service Service? No Mental Health and Addiction Treatment Current/Past substance abuse? No Current/Past addictive behavior concerns? No Medical and Physical Health Summary Physical exam in the last year? Yes Pain Screening Current pain? No Pain in the last few months? No Medications Is the patient compliant with medications? Yes Does the patient have Cooper Guardian in place? Not applicable Does the patient use complimentary health approaches? No Trauma/Abuse History History of trauma? No Assessment & Plan Assessment & Plan (1) Anxiety with depression: Code(s): F41.8 - Other specified anxiety disorders (2) Morbid obesity: Code(s): E66.01 - Morbid (severe) obesity due to excess calories Plan Patient is doing well and has no major mental health symptoms or barriers. She is cleared for surgery when ready. Telehealth Telehealth Location of provider rendering services: other Patient Identification confirmed using: Name, : Yes Telehealth method: video Patient verbally consented to treatment: Yes Patient verbally consented to billing insurance company: Yes Patient informed of any privacy concerns related to visit: Yes Minutes spent on Phone/Video with Pt.: 30 Coding Level of Care Code Tele Psytx 30 mins (41246) Diagnoses Anxiety with depression F41.8 Morbid obesity E66.01 Time Spent (min) 30
== END 2022-12-04 15:15 | disposition home or self-care (01) ==
LOC: HO.HBST 11:54
PROVIDERS: PCP Internal Medicine; Visit Provider Counselor Mental Health
DX: F41.8 Other specified anxiety disorders (principal); E66.01 Morbid (severe) obesity due to excess calories; Z68.43 Body mass index [BMI] 50.0-59.9, adult
CPT/HCPCS: 90832

== ENCOUNTER → 2022-12-04 11:54 | Outpatient (BNVA) | payer BC, SELFPAY | PROVIDERS: PCP Internal Medicine; Visit Provider Counselor Mental Health ==

== ENCOUNTER → 2022-12-06 11:45 | Outpatient (BNVA) | payer BC, SELFPAY | PROVIDERS: PCP Internal Medicine; Visit Provider Dietitian, Registered | DX: E66.9 Obesity, unspecified (principal); Z71.3 Dietary counseling and surveillance | CPT/HCPCS: 97803 ==

== ENCOUNTER 2022-12-20 16:14 | Outpatient (REF) | payer BC, SELFPAY ==
--- NOTE | ~2022-12-20 | CT_ITS ---
EXAMINATION: CT CHEST WITHOUT CONTRAST CLINICAL INFORMATION: Thoracic aortic ectasia COMPARISON: Chest x-ray October 20, 2022 TECHNIQUE: Multidetector volumetric CT imaging of the chest was done. Axial MIP volume rendering provided. Sagittal and coronal reformatted images were obtained. This CT examination was performed using dose optimization techniques as appropriate, variously including the following: *Automated exposure control *Adjustment of mA and/or kV according to patient size (this includes techniques or standardized protocols for targeted exams where dose is matched to indication/reason for exam; i.e. extremities or head) *Use of iterative reconstruction technique DLP: 380 mGy-cm FINDINGS: LUNGS: The lungs are clear with no evidence of inflammation or nodules. MEDIASTINUM: Heart size is top normal. No pericardial effusion. No aneurysm of the aorta. Ascending aorta measuring 2.7 cm transverse. No mediastinal mass or significant lymphadenopathy. CORONARY ARTERY CALCIFICATION: None visualized on this study. PLEURA: There is no pleural effusion. No pleural mass or thickening. AXILLA: No lymphadenopathy. UPPER ABDOMEN: Unremarkable. OSSEOUS STRUCTURES: No suspicious osseous lesions. Multilevel degenerative spondylosis of the dorsal spine. CT/CT chest wo IV con IMPRESSION: Normal CT of chest. No aneurysm of the aorta. Fleischner guidelines were followed.
== END 2022-12-20 16:15 | disposition home or self-care (01) ==
LOC: HO.CT 16:14
PROVIDERS: PCP Internal Medicine; Visit Provider Physician Assistant
DX: I77.810 Thoracic aortic ectasia (principal); I10 Essential (primary) hypertension; E66.01 Morbid (severe) obesity due to excess calories
CPT/HCPCS: 71250

== ENCOUNTER 2022-12-21 09:45 | Outpatient (AMB) | payer BC, SELFPAY ==
--- NOTE | 2022-12-21 10:15 | MHC.WMTHER ---
Intake Intake Visit Reasons: VIDEO F/U Allergies Sulfa (Sulfonamide Antibiotics) [SULFA(SULFONAMIDE ANTIBIOTICS)] Allergy (Unknown, Verified 10/17/22 14:00) YEAST INFECTION, yeast infections hard shell seafood Allergy (Unknown, Uncoded 10/17/22 14:00) swelling of throat, vomiting seafood Allergy (Unknown, Uncoded 10/17/22 14:00) unknown seasonal Allergy (Unknown, Uncoded 10/17/22 14:00) unknown SHELLFISH Allergy (Unknown, Uncoded 10/17/22 14:00) RASH [facility] Medical History (Updated 10/24/22 @ 15:32 by Inge Gaona PA-C) Migraine aura without headache Sleep apnea Asthma Family History Paternal Grandmother Breast CA Social History Alcohol intake: current Alcohol intake frequency: holidays/special occasions only Substance Use Type: Marijuana Sexual orientation: Straight/Heterosexual Gender identity: Female Behavioral Health Assessment Weight Management Therapy Therapy Notes Details Patient reported doing well, started planning her workouts has been doing them and has more energy as a result. Seeing the family therapist alone for the past three weeks to further help her at home. Discussed emotional eating and the piled up negative feelings it adds on to the already difficult ones looking to self soothe initially. Patient is looking to have weight loss surgery to help improve her health and quality of life. Pt has a family therapist that she sees with her family. She reported that she takes medication for anxiety/depression prescribed by her doctor. She stated that after she had her second baby, she started to feel very anxious. Then suffered a loss and started to have increase in depression. no history of problems with drugs or alcohol, and has never been admitted psychiatrically. No history of self harming behaviors or suicide attempts, or legal problems. Presenting Concerns Referral Source provider Reason for referral weight loss surgery evaluation Precipitating Event obesity Living Situation Current Living Situation Own At risk of losing current housing? No Satisfied with current living situation? Yes Comments Pt lives with her and three children ages 11, 8 and 5 years old. Food/Weight/Diet Expectations of change weight loss and maintenance History/Relationship with food She reported being an emotional eater, loves carbs, mostly salty foods. Reflects back on many things were food driven growing up. She reported that she would over eat and snack often and before bed. Also soda addict throughout college and first part of her marriage. Also takeout and eating out often. History/Relationship with weight Pt is at her heaviest weight. She reported being overweight since 2 years old. History/Relationship with dieting 30lb weight loss from another weight management program in 2007 (she weighed 260lbs at that time). Started dieting at age 7. Also weight loss camp when she was 11 years old that was helpful. Binge Eating Do you frequently eat large amounts of food in short periods of time, not feeling physically hungry? Yes Do you feel out of control when you eat a large amount of food in a short period of time? No Do you eat large amounts of food rapidly and typically alone? Yes Night Eating Do you wake up at least once during the night to eat? No If you wake up in the night, do you find that it is necessary to eat something in order to fall back asleep? No Social History Family history and relationship Pt is and has three children. She was born and raised in [place] by both biological parents and one sister. Patient denied any history of trauma or abuse. 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 Pt denied any legal issues. Education Highest grade completed college degree Preferred learning style Auditory, Verbal, Written, Learn by doing and Visual Currently enrolled in educational program? No Interested in further educational program? 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 No Meaningful activities walking, knitting Financial Situation Describe current financial situation Comfortable Financial assistance? None Service Service? No Mental Health and Addiction Treatment Current/Past substance abuse? No Current/Past addictive behavior concerns? No Medical and Physical Health Summary Physical exam in the last year? Yes Pain Screening Current pain? No Pain in the last few months? No Medications Is the patient compliant with medications? Yes Does the patient have Cooper Guardian in place? Not applicable Does the patient use complimentary health approaches? No Trauma/Abuse History History of trauma? No Assessment & Plan Assessment & Plan (1) Anxiety with depression: Code(s): F41.8 - Other specified anxiety disorders (2) Morbid obesity: Code(s): E66.01 - Morbid (severe) obesity due to excess calories Plan Patient is doing well and has no major mental health symptoms or barriers. She is cleared for surgery when ready. Telehealth Telehealth Location of provider rendering services: other Location of patient: address on file Patient Identification confirmed using: Name, : Yes Telehealth method: video Patient verbally consented to treatment: Yes Patient verbally consented to billing insurance company: Yes Patient informed of any privacy concerns related to visit: Yes Minutes spent on Phone/Video with Pt.: 30 Coding Level of Care Code Tele Psytx 30 mins ([id number]) Diagnoses Anxiety with depression F41.8 Morbid obesity E66.01 Time Spent (min) 30
== END 2022-12-24 16:11 | disposition home or self-care (01) ==
LOC: HO.HBST 11:28
PROVIDERS: PCP Internal Medicine; Visit Provider Counselor Mental Health
DX: F41.8 Other specified anxiety disorders (principal); E66.01 Morbid (severe) obesity due to excess calories
CPT/HCPCS: 90832

== ENCOUNTER 2022-12-21 11:00 | Outpatient (AMB) | payer BC, SELFPAY ==
--- NOTE | 2022-12-21 09:06 | MHC.OFFVISWM ---
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 meal plan: 7:30 - Orgain powder with 8 oz Fairlife 11:30 - RTD shake or yogurt with fruit (orange or kiwi or berreis) 3pm - second shake or protein bar 6 pm - 6 oz lean protein and 1/2 c vegetables or salad - and 1 serving fruit if not having during he day Stopped evening bar - not hungry Exercise - 3 d/ week. Walk at lunch ora video with stretch bands. Pre op work up completed as follows: SWL classes - 05/19 [facility] appts - 12/04, cleared RD appts - follow up on 12/06, cleared H pylori - negative Labs - high cholesterol, low vit d CXR - normal ECG - ectatic thoracic aorta ULS- hepatosplenomegaly, R 20.4, L 16.0. fatty liver UGI 12/26 ECHO - (ordered per DR Faustin due to ectatic thoracic aorta) Conclusions: - Normal left ventricular size and systolic function. There is severely increased left ventricular wall thickness. The visually estimated ejection fraction is between 55-60%. - Normal right ventricular cavity size. There is borderline right ventricular systolic function. CT chest - done 12/20 - not read yet [facility] Medical History (Updated 10/24/22 @ 15:32 by Inge Gaona PA-C) Migraine aura without headache Sleep apnea Asthma Family History Paternal Grandmother Breast CA Social History Alcohol intake: current Alcohol intake frequency: holidays/special occasions only Substance Use Type: Marijuana Sexual orientation: Straight/Heterosexual Gender identity: Female Assessment & Plan Assessment & Plan (1) Morbid obesity: Code(s): E66.01 - Morbid (severe) obesity due to excess calories Plan: Good progress, but still not exercising. WE discussed the importance of starting this now. Gym , , and Saturday - treadmill for 350 calories - followi the instructions I gave her at her IMMIGRATION OFFICER appt. Start the videos I recommended to her. Orgain shake with water or UAM. - stop Fairlife Will let her know CT chest results Next appt with me in 3 weeks. Patient is still morbidly obese and is not considered stable at this time. I spent 18 minutes in total speaking with the patient via video conference counseling , reviewing records and charting in patients chart. . (2) Sleep apnea: Code(s): G47.30 - Sleep apnea, unspecified (3) HTN (hypertension), benign: Code(s): I10 - Essential (primary) hypertension (4) GERD (gastroesophageal reflux disease): Code(s): K21.9 - Gastro-esophageal reflux disease without esophagitis (5) Ectatic thoracic aorta: Code(s): I77.810 - Thoracic aortic ectasia Telehealth Telehealth Location of provider rendering services: practice address Location of patient: address on file Patient Identification confirmed using: Name, : Yes Telehealth method: video Patient verbally consented to treatment: Yes Patient verbally consented to billing insurance company: Yes Patient informed of any privacy concerns related to visit: Yes Coding Level of Care Code Tele Est Pt Level 4 (49567) Diagnoses Morbid obesity E66.01 Sleep apnea G47.30 HTN (hypertension), benign I10 GERD (gastroesophageal reflux disease) K21.9 Ectatic thoracic aorta I77.810
[2022-12-21 11:02] VITALS: BMI 56.5
== END 2022-12-21 11:17 | disposition home or self-care (01) ==
LOC: HO.HBS 11:12
PROVIDERS: PCP Internal Medicine; Visit Provider Physician Assistant
DX: E66.01 Morbid (severe) obesity due to excess calories (principal); Z68.43 Body mass index [BMI] 50.0-59.9, adult; G47.30 Sleep apnea, unspecified; I10 Essential (primary) hypertension; K21.9 Gastro-esophageal reflux disease without esophagitis
CPT/HCPCS: 99213

== ENCOUNTER → 2022-12-21 11:00 | Outpatient (BNVA) | payer BC, SELFPAY | PROVIDERS: PCP Internal Medicine; Visit Provider Physician Assistant ==

== ENCOUNTER 2022-12-26 07:55 | Outpatient (REF) | payer BC, SELFPAY ==
--- NOTE | ~2022-12-26 | FL_ITS ---
EXAMINATION: XR FLUOROSCOPY UPPER GI WITH AIR CLINICAL INFORMATION: Preop evaluation prior to bariatric surgery COMPARISON: None TECHNIQUE: Fluoroscopic air contrast upper GI examination was performed utilizing standard techniques with thin and thick barium and effervescent granules. Numerous spot images were obtained. FINDINGS: Dual and single contrast images of the esophagus demonstrate normal caliber, contour, and mucosal pattern. No evidence of stricture, mass, or ulcerations identified. Esophageal peristalsis was normal. A small type I hiatal hernia is present. Gastroesophageal reflux is seen up to level of the thoracic inlet. Dual contrast and single contrast images of the stomach demonstrated normal contour and mucosal pattern without evidence of mass, ulceration, or other abnormality. Contrast freely passed into the gastric antrum and duodenal bulb without delay. Single and air-contrast images of the duodenal bulb demonstrate no abnormality. The duodenal sweep has a normal appearance, course, and mucosal fold appearance. The imaged proximal jejunum has a normal fold pattern and caliber. FLUOROSCOPY TIME: 3.02 Number of Spot Images: 12 Number of Cine: 6 DOSE AREA PRODUCT: 3477 uGy-m2 (microgray-meter squared) FL/FL upper GI w air IMPRESSION: 1. Small type I hiatal hernia 2. Significant gastroesophageal reflux This procedure was performed by Isaac Chanel PA-C, and supervised by Dr. Monsivais
== END 2022-12-26 07:56 | disposition home or self-care (01) ==
LOC: HO.XRAY 07:55
PROVIDERS: PCP Internal Medicine; Visit Provider Physician Assistant
DX: Z01.818 Encounter for other preprocedural examination (principal); E66.01 Morbid (severe) obesity due to excess calories; K21.9 Gastro-esophageal reflux disease without esophagitis; I10 Essential (primary) hypertension
CPT/HCPCS: 74246

== ENCOUNTER → 2022-12-26 07:56 | Outpatient (BNV) | payer BC, SELFPAY | PROVIDERS: PCP Internal Medicine; Visit Provider Radiology Diagnostic Radiology | DX: Z01.818 Encounter for other preprocedural examination (principal); E66.01 Morbid (severe) obesity due to excess calories | CPT/HCPCS: 74246 ==

== ENCOUNTER 2023-01-11 10:00 | Outpatient (AMB) | payer BC, SELFPAY ==
--- NOTE | 2023-01-11 10:01 | MHC.OFFVISWM ---
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 Presently has bronchitis over t he last 2 weeks - using nebulizer wi th some improvemen t still coughing a lot with any exerc ise. Goal weight i s 309.9 before niya linda. Meal plan: 7:30 - am - Lactai d 1% with 2 scoops Orgain 11:30 am - yogurt with an ap ple or berries OR Premier shake 3:30 - One or Quest ba r 6:30 pm - 12 for ks protein and 12 forks vegetables Exercise - LS 1 mi le videos every ot her day - due to kamlesh zuleta Pre op work up completed as follows: SWL cl asses - 09/18 BH ap pts - 12/04, clear ed RD appts - follow up on , cleared H py charlie - negative La bs - high choleste rol, low vit d CXR - normal ECG - ec tatic thoracic aor ta ULS- hepatospl enomegaly, R 20.4, L 16.0. fatty ryan er UGI - type 1 HH , significant rref lux ECHO - (ordere d per DR Faustin due to ectatic thoracic aorta) Conclusions : - Normal left v entricular size an d systolic functio n. There is anders rely increased lef t ventricular wall thickness. The v isually estimated ejection fraction is between 55-60%. - Normal right ventricular cavity size. There is b orderline right v entricular systoli c function. CT c hest - Normal CT o f chest. No aneury sm of the aorta. PFSH Medical History (Updated 10/24/22 @ 15:32 by Inge Gaona PA-C) Migraine aura without headache Sleep apnea Asthma Family History Paternal Grandmother Breast CA Social History Alcohol intake: current Alcohol intake frequency: holidays/special occasions only Substance Use Type: Marijuana Sexual orientation: Straight/Heterosexual Gender identity: Female Assessment & Plan Assessment & Plan (1) Morbid obesity: Code(s): E66.01 - Morbid (severe) obesity due to excess calories Plan: Great progress with 30.5 lbs or 8.8%TBWL. All pre op work up completed. Ectatic thoracic aorta seen on CXR was followed up with CT chest and found to have normal findings. Meal plan changes today per Dr Faustin: Stop Lactaid and switch to UAM with protein shakes 8am - Orgain withUAM 11:30- Orgain with UAM 3;30 - bar Dinner - same 12 forks each protein and vegetables Exercise - increase to 1 mile videos 4 days this week and increase 2 mile videos 5d/week as her bronchitis resolves. Next appt with me in 3 weeks, we reviewed the path to surgery today. Patient is still morbidly obese and is not considered stable at this time. I spent 25 minutes in total speaking with the patient via video conference counseling , reviewing records and charting in patients chart. . (2) HTN (hypertension), benign: Code(s): I10 - Essential (primary) hypertension (3) Sleep apnea: Code(s): G47.30 - Sleep apnea, unspecified (4) GERD (gastroesophageal reflux disease): Code(s): K21.9 - Gastro-esophageal reflux disease without esophagitis (5) Ectatic thoracic aorta: Code(s): I77.810 - Thoracic aortic ectasia Plan: This was a finding on CXR, not seen on CT chest Plan see above Telehealth Telehealth Location of provider rendering services: practice address Location of patient: address on file Patient Identification confirmed using: Name, : Yes Telehealth method: video Patient verbally consented to treatment: Yes Patient verbally consented to billing insurance company: Yes Patient informed of any privacy concerns related to visit: Yes Coding Level of Care Code Tele Est Pt Level 4 (52036) Diagnoses Morbid obesity E66.01 HTN (hypertension), benign I10 Sleep apnea G47.30 GERD (gastroesophageal reflux disease) K21.9 Ectatic thoracic aorta I77.810
[2023-01-11 10:04] VITALS: BMI 55.7
== END 2023-01-11 10:21 | disposition home or self-care (01) ==
LOC: HO.HBS 10:02
PROVIDERS: PCP Internal Medicine; Visit Provider Physician Assistant
DX: E66.01 Morbid (severe) obesity due to excess calories (principal); I10 Essential (primary) hypertension; G47.30 Sleep apnea, unspecified; K21.9 Gastro-esophageal reflux disease without esophagitis; I77.810 Thoracic aortic ectasia
CPT/HCPCS: 99213

== ENCOUNTER → 2023-01-11 10:00 | Outpatient (BNVA) | payer BC, SELFPAY | PROVIDERS: PCP Internal Medicine; Visit Provider Physician Assistant | DX: E66.01 Morbid (severe) obesity due to excess calories (principal); G47.30 Sleep apnea, unspecified; I10 Essential (primary) hypertension; K21.9 Gastro-esophageal reflux disease without esophagitis; I77.810 Thoracic aortic ectasia ==

== ENCOUNTER 2023-03-04 08:05 | Outpatient (AMB) | payer BC, SELFPAY ==
--- NOTE | 2023-03-04 09:23 | MHC.OFFVISWM ---
Intake VS Expanded 03/04/23 10:02 Height 5 ft 3 in Weight 309 lb 8 oz BMI 54.8 Body Fat % 58.6 Body Fat Mass 181.5 Fat Free Mass 128.3 Visceral Fat Rating 23.6 Body Water % 33.9 Body Water Mass 105 Basal Metabolic Rate/Score 2,048 Intake Visit Reasons: TV Consult/Transfer Inge Allergies Sulfa (Sulfonamide Antibiotics) [SULFA(SULFONAMIDE ANTIBIOTICS)] Allergy (Unknown, Verified 03/04/23 09:23) YEAST INFECTION, yeast infections hard shell seafood Allergy (Unknown, Uncoded 03/04/23 09:23) swelling of throat, vomiting seafood Allergy (Unknown, Uncoded 03/04/23 09:23) unknown seasonal Allergy (Unknown, Uncoded 03/04/23 09:23) unknown SHELLFISH Allergy (Unknown, Uncoded 03/04/23 09:23) RASH Medication List - Last Reconciled 03/04/23 by Jovany Pineda MD albuterol sulfate 90 mcg/actuation 2 puffs inhalation Q6H PRN cholecalciferol (vitamin D3) 25 mcg PO DAILY losartan 25 mg PO DAILY venlafaxine ER 75 mg PO DAILY HPI TV Consult/Transfer [facility] HPI Details Start time: 8.30am, End time: 9.15an ?I spent 40 minutes speaking with the patient on the phone plus an additional 5 minutes reviewing and updating records for a total of 45 minutes HPI Comments History of Present Illness Details Overall weight loss: 34.9lbs, or 10.12% TBWL Is doing 2 Orgain protein shakes (2 scoops in almond milk), one Quest/ONE/Pure protein bar and one meal (12 forks of protein and 12 forks of salad or vegetables) Exercise: online videos x3/wk FOR[facility]LY [facility], [facility] Medical History (Updated 03/04/23 @ 10:01 by Jovany Pineda MD) Hyperlipidemia Ectatic thoracic aorta Migraine aura without headache Sleep apnea Asthma Family History Paternal Grandmother Breast CA Social History Alcohol intake: current Alcohol intake frequency: holidays/special occasions only Substance Use Type: Marijuana Sexual orientation: Straight/Heterosexual Gender identity: Female Assessment & Plan Assessment & Plan (1) Morbid obesity: Code(s): E66.01 - Morbid (severe) obesity due to excess calories Plan: 1. Plan for lap sleeve gastrectomy. If diaphragmatic or ventral hernias are present at time of surgery, these will be repaired laparoscopically as well. Risks and complications were discussed in detail including possible conversion to an open procedure, anastomotic leak, bleeding requiring transfusion, small bowel obstruction, , DVT and pulmonary embolism, cardiac, or pulmonary complications, as fci complications such as anastomotic ulcer, insufficient weight loss and vitamin deficiencies. I emphasized the importance of close follow-up, adherence to instructions and good communication. 2. Continue same nutritional plan of 2 Orgain protein shakes (2 scoops in almond milk), one Quest/ONE/Pure protein bar and one meal (12 forks of protein and 12 forks of salad or vegetables) 3. Start treadmill with an incline of 2.0 and speed of 3.0. Increase incline by 1 every 3 min to a max incline of 8.0, stay 3min at 8.0 and then return to 2.0 and repeat same steps until calorie goal is met. Goal is to burn 2000 calories per week on exercise, which means either 300 calories daily, or 400 calories 5 days per week, or 500 calories 4 days per week, or 650 calories 3 days per week. 4. Continue to send me weight measurements weekly on Fridays Orders: Orders CA lexiscan stress w trina Today I51.7 - Cardiomegaly, R93.1 - Abnormal findings on diagnostic imaging of heart and coronary circulation Referrals Cardiology Referral I51.7 - Cardiomegaly, R93.1 - Abnormal findings on diagnostic imaging of heart and coronary circulation Medications: New mecobalamin (vitamin B12) place tablet under tongue and allow to dissolve for at least30 secs before swallowing 1,000 mcg sublingual DAILY 60 tabs 0RF E53.8 - Deficiency of other specified B group vitamins Telehealth Telehealth Location of provider rendering services: practice address Location of patient: address on file Patient Identification confirmed using: Name, : Yes Telehealth method: voice only Patient verbally consented to treatment: Yes Patient verbally consented to billing insurance company: Yes Patient informed of any privacy concerns related to visit: Yes Minutes spent on Phone/Video with Pt.: 45 Coding Level of Care Code Tele Est Pt Level 4 (34616) Diagnoses Morbid obesity E66.01 Time Spent (min) 45
[2023-03-04 10:02] VITALS: BMI 54.8
== END 2023-03-04 10:09 | disposition home or self-care (01) ==
LOC: HO.HBS 08:05
PROVIDERS: PCP Internal Medicine; Visit Provider Surgery
DX: E66.01 Morbid (severe) obesity due to excess calories (principal); Z68.43 Body mass index [BMI] 50.0-59.9, adult
CPT/HCPCS: 99443

== ENCOUNTER → 2023-03-04 08:05 | Outpatient (BNVA) | payer BC, SELFPAY | PROVIDERS: PCP Internal Medicine; Visit Provider Surgery ==

== ENCOUNTER 2023-03-25 08:13 | Outpatient (AMB) | payer BC, SELFPAY ==
--- NOTE | 2023-03-25 09:26 | MHC.OFFVISWM ---
Intake VS Expanded 03/25/23 09:39 Height 5 ft 3 in Weight 309 lb 4 oz BMI 54.8 Body Fat % 58.6 Body Fat Mass 181.3 Fat Free Mass 128.1 Visceral Fat Rating 23.6 Body Water % 33.7 Body Water Mass 104.2 Basal Metabolic Rate/Score 2,045 Intake Visit Reasons: TV Follow Up SWL Allergies Sulfa (Sulfonamide Antibiotics) [SULFA(SULFONAMIDE ANTIBIOTICS)] Allergy (Unknown, Verified 03/04/23 09:23) YEAST INFECTION, yeast infections hard shell seafood Allergy (Unknown, Uncoded 03/04/23 09:23) swelling of throat, vomiting seafood Allergy (Unknown, Uncoded 03/04/23 09:23) unknown seasonal Allergy (Unknown, Uncoded 03/04/23 09:23) unknown SHELLFISH Allergy (Unknown, Uncoded 03/04/23 09:23) RASH HPI TV Follow Up SWL HPI Details Start time: 9.20am, End time: 9.53am ?I spent 28 minutes speaking with the patient on the phone plus an additional 5 minutes reviewing and updating records for a total of 33 minutes HPI Comments History of Present Illness Details Overall weight loss: 35.3lbs, or 10.24% TBWL Is doing 2 Orgain protein shakes (2 scoops each in almond milk), one Pure protein or Quest protein bar and one meal (12 forks of protein and 12 forks of salad or vegetables) Exercise: doing treadmill for 300 calories (speed: 2.0 and incline 1-8) [facility] Medical History (Updated 03/04/23 @ 10:01 by Jovany Pineda MD) Hyperlipidemia Ectatic thoracic aorta Migraine aura without headache Sleep apnea Asthma Family History Paternal Grandmother Breast CA Social History Alcohol intake: current Alcohol intake frequency: holidays/special occasions only Substance Use Type: Marijuana Sexual orientation: Straight/Heterosexual Gender identity: Female Assessment & Plan Assessment & Plan (1) Morbid obesity: Code(s): E66.01 - Morbid (severe) obesity due to excess calories Plan: 1. Plan for lap sleeve gastrectomy including upper GI endoscopy. All tests has been completed and reviewed and the patient is cleared for the surgery. ?If diaphragmatic or ventral hernias are present at time of surgery, these will be repaired laparoscopically as well. Risks and complications were discussed in detail including possible conversion to an open procedure, anastomotic leak, bleeding requiring transfusion, small bowel obstruction, , DVT and pulmonary embolism, cardiac, or pulmonary complications, as skilled nursing complications such as anastomotic ulcer, insufficient weight loss and vitamin deficiencies. I emphasized the importance of close follow-up, adherence to instructions and good communication. So far she has proven to be an excellent communicator and very compliant with all our directions accomplishing a great weight loss. I believe that she is an excellent candidate and she is ready. 2. Continue same nutritional plan of 2 Orgain protein shakes (2 scoops each in almond milk), one Pure protein or Quest protein bar and one meal (12 forks of protein and 12 forks of salad or vegetables) 3. Exercise: continue treadmill for 300 calories (speed: 2.0 and incline 1-8) 4. Continue to send weight measurements weekly on Fridays Coding Level of Care Code Tele Est Pt Level 4 (13388) Diagnoses Morbid obesity E66.01 Time Spent (min) 33
[2023-03-25 09:39] VITALS: BMI 54.8
== END 2023-03-25 09:54 | disposition home or self-care (01) ==
LOC: HO.HBS 08:13
PROVIDERS: PCP Internal Medicine; Visit Provider Surgery
DX: E66.01 Morbid (severe) obesity due to excess calories (principal); Z68.43 Body mass index [BMI] 50.0-59.9, adult
CPT/HCPCS: 99443

== ENCOUNTER → 2023-03-25 08:13 | Outpatient (BNVA) | payer BC, SELFPAY | PROVIDERS: PCP Internal Medicine; Visit Provider Surgery ==

== ENCOUNTER → 2023-03-27 08:10 | Outpatient (REF) | payer BC, SELFPAY ==
--- NOTE | ~2023-03-27 | NM_ITS ---
EXERCISE MYOCARDIAL PERFUSION STUDY INDICATION: Preoperative cardiac evaluation TECHNIQUE: The patient was brought in for an exercise perfusion study on 03/27/2023. Patient performed exercise as per Justin protocol and was injected 45 mCi of sestamibi once target heart rate was achieved. Images were obtained using the SPECT gamma camera interlaced with the gating device. Images were obtained in supine position. Resting perfusion study was performed on 04/02/2023. Patient was administered 45 mCi of sestamibi intravenously at rest. Images were then obtained in supine position. Images were processed with the software and compared side to side in short axis, horizontal long axis and vertical long axis views. Total DLP 216mGy-cm. FINDINGS: Raw images were reviewed. The stress perfusion study showed diminished tracer uptake in the distal part of anterolateral wall. There is improvement with CT attenuation correction seen just to of soft tissue attenuation artifact. The gated study shows normal LV systolic function with calculated LVEF of 66%. LV cavity is normal in size. The gated study shows normal wall thickening and contraction of segments. Resting study shows diminished tracer uptake in the inferior wall. There is improvement with CT at admission correction suggestive of diaphragmatic attenuation artifact. Gating at rest reveals normal wall motion with ejection fraction at 53%. The findings are consistent with reversible distal anterolateral perfusion defect suspected to be from soft tissue attenuation artifact. NM/NM trina perf SPECT rest & str IMPRESSION: 1. Myocardial perfusion imaging study shows no clear evidence of any ischemia or infarction. Probably normal myocardial perfusion. 2. Gated LVEF is 66% during stress and 53% during rest. 3. Transient ischemic dilatation not present. EKG component of the test reported separately.
--- NOTE | 2023-03-27 08:13 | CA_ITS ---
Acquisition Time: 2023-03-27 08:10:59 Total Exercise Time: 00:06:20 Test Indications: R93.1 Medications: SEE H Protocol: PABLO Max HR: 187 BPM 103% of Pred: 181 BPM Max BP: 152/078 mmHG Max Work Load: 7.5 METS Exercise stress test exercise 6 min 20 sec of Pablo protocol achieivng 103% MPHR and 7.5 METs, without anginal symptoms, without arrhythmias, with normotensive repsonse to exericse, without EKG changes. Nuclear images pending. Test reviewed with Dr. Hurley. Referred By: Jovany Pineda Overread By: Caryl Monsivais
== END ==
LOC: HO.CARD 08:10
PROVIDERS: PCP Internal Medicine; Visit Provider Surgery
DX: I51.7 Cardiomegaly (principal); R93.1 Abnormal findings on diagnostic imaging of heart and coronary circulation
CPT/HCPCS: 78452; 93017; A9500

== ENCOUNTER → 2023-03-27 08:13 | Outpatient (BNV) | payer BC, SELFPAY | PROVIDERS: PCP Internal Medicine; Visit Provider Nurse Practitioner | DX: R93.1 Abnormal findings on diagnostic imaging of heart and coronary circulation (principal); I51.7 Cardiomegaly | CPT/HCPCS: 78452; 93016; 93018 ==

== ENCOUNTER 2023-05-17 08:30 | Outpatient (AMB) | payer BC, SELFPAY ==
--- NOTE | 2023-05-17 08:37 | A.OFFVIS_ITS ---
Intake VS Expanded 05/17/23 08:54 Height 5 ft 3 in Weight 303 lb 8 oz BMI 53.8 Body Fat % 58.2 Body Fat Mass 176.8 Fat Free Mass 127 Visceral Fat Rating 23 Body Water % 34 Body Water Mass 103.2 Basal Metabolic Rate/Score 2,018 Intake Visit Reasons: (OV) Pre Op LSG 06/06/23 Allergies Sulfa (Sulfonamide Antibiotics) [SULFA(SULFONAMIDE ANTIBIOTICS)] Allergy (Unkn own, Verified 05/17/23 08:39) YEAST INFECTION, yeast infections hard shell seafood Allergy (Unknown, Uncoded 05/17/23 08:39) swelling of throat, vomiting seafood Allergy (Unknown, Uncoded 05/17/23 08:39) unknown seasonal Allergy (Unknown, Uncoded 05/17/23 08:39) unknown SHELLFISH Allergy (Unknown, Uncoded 05/17/23 08:39) RASH Medication List - Last Reconciled 05/17/23 by Jovany Pineda MD albuterol sulfate 90 mcg/actuation 2 puffs inhalation Q6H PRN cholecalciferol (vitamin D3) (Vitamin D3) 25 mcg PO DAILY cyanocobalamin (vitamin B-12) 500 mcg (1/2 x 1,000 mcg) sublingual DAILY losartan 25 mg PO DAILY ondansetron 4 mg PO Q12H pantoprazole 40 mg PO DAILY polyethylene glycol 3350 (Miralax) 17 grams PO DAILY sucralfate 10 mL PO BID venlafaxine ER 75 mg PO DAILY HPI (OV) Pre Op LSG 06/06/23 HPI Details Start time: 8.34am, End time: 9.04am ?I spent 25 minutes speaking with the patient on the phone plus an additional 5 minutes reviewing and updating records for a total of 30 minutes HPI Comments History of Present Illness Details Overall weight loss: 40.9lbs, or 11.9% TBWL Is doing 2 Orgain protein shakes (one scoop in 8oz almond milk), 2-2.5 Pure protein bars and one meal (12 forks of protein and 12 forks of salad or vegetab les) Exercise: is doing treadmill for 250 calories PFSH Medical History (Updated 03/04/23 @ 10:01 by Jovany Pineda MD) Hyperlipidemia Ectatic thoracic aorta Migraine aura without headache Sleep apnea Asthma Family History Paternal Grandmother Breast CA Social History Alcohol intake: current Alcohol intake frequency: holidays/special occasions only Substance Use Type: Marijuana Sexual orientation: Straight/Heterosexual Gender identity: Female Assessment & Plan Assessment & Plan (1) Morbid obesity: Code(s): E66.01 - Morbid (severe) obesity due to excess calories Plan: 1. Plan for lap sleeve gastrectomy including upper GI endoscopy. All tests has been completed and reviewed and the patient is cleared for the surgery. ?If diaphragmatic or ventral hernias are present at time of surgery, these will be repaired laparoscopically as well. 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 I emphasized the importance of close follow-up, adherence to instructions and good communication. So far she has proven to be an excellent communicator and very compliant with all our directions accomplishing a great w eight loss. I believe that she is an excellent candidate and she is ready. 2. Preop prescriptions were provided and explained the purpose of each one. Need to be purchased preop. Start Pantoprazole now as you get it from the pharmacy, 1 pill per day. Sucralfate and Zofran are for after surgery as needed. 3. Bowel prep: please do 7 packets ?of Miralax mixing each one with a an 8oz glass of water, crystal light, gatorade zero, or propel ?on 06/05/23 and the same amount on 06/04/23. The Miralax you begin with one packet at a time in 8oz water or crystal light, gatorade zero, or propel ?as early in the day as you can and you do them back to back until you finish them. Continue the protein shakes during? the bowel prep. 4. Needs to purchase 1oz medicine cups . 5. Needs to purchase Children's liquid Tylenol for postop pain control. 6. Avoid aspirin, motrin, Advil, Aleve, Ibuprofen, Naproxyn. Tylenol is OK. 7. She needs to purchase the Celebrate 4:1 protein shakes from the hospital's gift shop. 8. Will do basic preop blood work-up on Saturday05/24/23 fasting for 12 hours and is scheduled to see the Anesthesiologist prior to the day of surgery. 9. Measure your blood pressure every morning. If blood pressure is: Below 120/70: do not take the Losartan 121/71 to 130/80: take HALF Losartan Over 131/81: take the whole Losartan pill 10. Importance of adherence to postop folllow-up and recommendations was underscored and she understands that. 11. Stop food and bars as of Saturday05/20/23 and continue with 5 Orgain protein shakes (TWO scoops EACH in 8oz almond milk) at 7am-9am, 10am-12pm, 1pm-3pm, 4pm- 6pm and at 7pm-9pm 12. No soups, broths or V8 13. The patient's?medical?history has been reviewed and they are considered low risk for post op DVT and therefore DVT prophylaxis is not considered necessary. Travel after surgery was reviewed. The patient has not disclosed any travel plans during the first 30 days after surgery and they have been advised that within the first 30 days after surgery any bus, plane, train or car travel over 2 hours in duration is contraindicated due to the possibility of developing blood clots from immobility. Any travel, needs to include periods of ambulation of 10 minutes in duration every 2 hours.? Patient was instructed to discuss any plans for travel during this period with their bariatric surgeon.? 14. Use your CPAP daily and bring it to the hospital with your mask 15. Please take at the day of surgery the following medications: Only the Losartan per my instructions above 16. Stop any control pills and don't use them for one month after surgery 17. Absolutely no smoking or vaping, or marijuana until the surgery and for at least the first 4 weeks. Only nicotine patches are allowed. 18. Send me weight measurements on Saturday05/24/23 and 05/31/23 and then on 06/06/23, the day of surgery before you go to the hospital. 19. Avoid any steroids by mouth for any reason. Let me know if someone prescribe s them to you 20. These instructions supersede anything else you read in the handbook, anything you watched in videos or classes or you were told by any other provider. If there is any conflict, you follow the above instructions and nothing else. Orders: Orders Lipid Panel Today E66.01 - Morbid (severe) obesity due to excess calories, E78.5 - Hyperlipidemia, unspecified, G47.30 - Sleep apnea, unspecified, I10 - Essential (primary) hypertension Prothrombin Time INR Today E66.01 - Morbid (severe) obesity due to excess calories, E78.5 - Hyperlipidemia, unspecified, G47.30 - Sleep apnea, unspecified, I10 - Essential (primary) hypertension Insulin Today E66.01 - Morbid (severe) obesity due to excess calories, E78.5 - Hyperlipidemia, unspecified, G47.30 - Sleep apnea, unspecified, I10 - Essential (primary) hypertension TSH reflex Free T4 Today E66.01 - Morbid (severe) obesity due to excess calories, E78.5 - Hyperlipidemia, unspecified, G47.30 - Sleep apnea, unspecified, I10 - Essential (primary) hypertension Hemoglobin A1c Today E66.01 - Morbid (severe) obesity due to excess calories, E78.5 - Hyperlipidemia, unspecified, G47.30 - Sleep apnea, unspecified, I10 - Essential (primary) hypertension Comprehensive Met. Panel Today E66.01 - Morbid (severe) obesity due to excess calories, E78.5 - Hyperlipidemia, unspecified, G47.30 - Sleep apnea, unspecified, I10 - Essential (primary) hypertension Type and Screen Today E66.01 - Morbid (severe) obesity due to excess calories, E78.5 - Hyperlipidemia, unspecified, G47.30 - Sleep apnea, unspecified, I10 - Essential (primary) hypertension Partial Thromboplastin Time Today E66.01 - Morbid (severe) obesity due to excess calories, E78.5 - Hyperlipidemia, unspecified, G47.30 - Sleep apnea, unspecified, I10 - Essential (primary) hypertension C Reactive Protein Today E66.01 - Morbid (severe) obesity due to excess calories, E78.5 - Hyperlipidemia, unspecified, G47.30 - Sleep apnea, unspecified, I10 - Essential (primary) hypertension Complete Blood Count Auto Diff Today E66.01 - Morbid (severe) obesity due to excess calories, E78.5 - Hyperlipidemia, unspecified, G47.30 - Sleep apnea, unspecified, I10 - Essential (primary) hypertension Medications: New pantoprazole 40 mg PO DAILY 90 tabs 0RF K21.9 - Gastro-esophageal reflux disease without esophagitis sucralfate 10 mL PO BID 600 mL 2RF K21.9 - Gastro-esophageal reflux disease without esophagitis ondansetron Only take one every 12 hours as needed if you have nausea 4 mg PO Q12H 20 tabs 0RF nausea and vomiting R11.0 - Nausea polyethylene glycol 3350 (Miralax) Mix each packet with 8oz of water, Crystal light, or Gatorade zero, or Propel and do 7 packets on 06/04/23 and another 7 packets on 06/05/23 17 grams PO DAILY 14 ea 0RF Z01.818 - Encounter for other preprocedural examination Telehealth Telehealth Location of provider rendering services: practice address Location of patient: address on file Patient Identification confirmed using: Name, : Yes Telehealth method: voice only Patient verbally consented to treatment: Yes Patient verbally consented to billing insurance company: Yes Patient informed of any privacy concerns related to visit: Yes Minutes spent on Phone/Video with Pt.: 30 Coding Level of Care Code Tele Est Pt Level 4 (19347) Diagnoses Morbid obesity E66.01 Time Spent (min) 30
[2023-05-17 08:54] VITALS: BMI 53.8
== END 2023-05-17 09:05 | disposition home or self-care (01) ==
LOC: HO.HBS 08:54
PROVIDERS: PCP Internal Medicine; Visit Provider Surgery
DX: E66.01 Morbid (severe) obesity due to excess calories (principal); Z68.43 Body mass index [BMI] 50.0-59.9, adult
CPT/HCPCS: 99499

== ENCOUNTER → 2023-05-17 08:30 | Outpatient (BNVA) | payer BC, SELFPAY | PROVIDERS: PCP Internal Medicine; Visit Provider Surgery | DX: E66.01 Morbid (severe) obesity due to excess calories (principal); G47.30 Sleep apnea, unspecified; I10 Essential (primary) hypertension; E78.5 Hyperlipidemia, unspecified; K21.9 Gastro-esophageal reflux disease without esophagitis; R11.0 Nausea; Z01.818 Encounter for other preprocedural examination ==

== ENCOUNTER 2023-05-21 12:41 | Outpatient (AMB) | payer BC, SELFPAY ==
--- NOTE | 2023-05-21 12:47 | A.OFFVIS_ITS ---
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 Allergies Sulfa (Sulfonamide Antibiotics) [SULFA(SULFONAMIDE ANTIBIOTICS)] Allergy (Unknown, Verified 05/17/23 08:39) YEAST INFECTION, yeast infections hard shell seafood Allergy (Unknown, Uncoded 05/17/23 08:39) swelling of throat, vomiting seafood Allergy (Unknown, Uncoded 05/17/23 08:39) unknown seasonal Allergy (Unknown, Uncoded 05/17/23 08:39) unknown SHELLFISH Allergy (Unknown, Uncoded 05/17/23 08:39) RASH Medication List - Last Reconciled 05/21/23 by Roland Moncada MD albuterol sulfate 90 mcg/actuation 2 puffs inhalation Q6H PRN cholecalciferol (vitamin D3) (Vitamin D3) 25 mcg PO DAILY cyanocobalamin (vitamin B-12) 500 mcg (1/2 x 1,000 mcg) sublingual DAILY losartan 25 mg PO DAILY ondansetron 4 mg PO Q12H pantoprazole 40 mg PO DAILY polyethylene glycol 3350 (Miralax) 17 grams PO DAILY sucralfate 10 mL PO BID venlafaxine ER 150 mg PO DAILY HPI HPI Comments History of Present Illness Details Thank you for referring Becca in cardiology consultation today for management of noted severe left ventricular hypertrophy on her echocardiogram. 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 She does not have any significant symptoms. However she is on undergoing evaluation for bariatric surgery for her obesity and underwent an echocardiogram for abnormal EKG. She carries history of hypertension treated for the last 2 years prior to that, she says she did not have significant hy pertension including during . She has had obstructive sleep apnea diagnose about 10 years ago, since then has been treated. She says she is good compliance with it and gets good sleep. She has no exertional symptoms. Denies any exertional chest pain or lightheadedness. Denies any orthopnea, PND, leg edema. No irregular heartbeat or prolonged palpitations. She is here for preoperative cardiovascular risk stratification. There is no family history of congestive heart failure and/or infiltrative heart disease including any history of hemochromatosis. [facility] Medical History Hyperlipidemia Ectatic thoracic aorta Migraine aura without headache Sleep apnea Asthma Family History Paternal Grandmother Breast CA Social History Alcohol intake: current Alcohol intake frequency: holidays/special occasions only Substance Use Type: Marijuana Sexual orientation: Straight/Heterosexual Gender identity: Female Review of Systems Const Denies chills, Denies daytime sleepiness, Denies fatigue, Denies fever(s), Denies frequent falls, Denies poor appetite, Denies snoring, Denies stops breathing during sleep, Denies weakness, Denies weight gain and Denies weight loss Eyes Denies loss of vision ENT Denies dizziness and Denies hearing loss Card Denies chest pain, Denies claudication, Denies leg edema, Denies lightheadedness, Denies palpitations, Denies dyspnea, Denies dyspnea on exertion and Denies orthopnea Resp Denies cough, Denies excessive phlegm production, Denies dyspnea, Denies dyspnea on exertion, Denies snoring and Denies wheezing GI Denies abdominal pain, Denies hematochezia, Denies change in bowel habits, Denies nausea and Denies vomiting Denies urinary frequency and Denies dysuria Musc Denies arthralgias, Denies muscle weakness, Denies numbness and Denies other (frequent falls) Skin/Breast Denies nail changes and Denies rash Neuro Denies Abnormal speech present, Denies dizziness, Denies frequent falls, Denies loss of vision, Denies memory loss, Denies numbness and Denies weakness Psych Denies depression and Denies memory loss Endo Denies fatigue and Denies palpitations Aneesh/Lymph Reports easy bruising and Reports other (anemia) Aller/Immun Denies wheezing Physical Exam Vital Signs: Last Vital Signs Pulse 75 05/21/23 12:51 BP 116/70 05/21/23 12:51 BMI result Body Mass Index 54.7 Const General: cooperative, comfortable, no acute distress, alert, awake and Physically active Nutritional Appearance: obese morbidly obese Orientation/consciousness: patient oriented x3 Limitations: no limitations HEENT Head: Yes normocephalic and Yes atraumatic Neck Neck: Yes trachea midline and Yes no JVD Resp Effort & Inspection: normal respiratory effort Auscultation: clear to auscultation bilaterally Cardio Jugular venous distension: no JVD Palpation: normal PMI Rate: regular rate Rhythm: regular rhythm Heart sounds: S1 normal heart sound present, S2 normal heart sound present, no click, no gallops, no murmurs and no rubs GI Inspection: Yes obesity Auscultation: normal bowel sounds Skin General skin exam: no rashes or lesions noted Neuro General: patient oriented x3 and no focal motor deficits Speech: No Abnormal speech present Extrem General: Yes no clubbing, cyanosis or edema Psych Appearance: grossly normal Office Procedures EKG Details: EKG shows normal sinus rhythm with sinus arrhythmia with normal EKG [id number], Complete Assessment & Plan Assessment & Plan (1) Preoperative cardiovascular examination: Code(s): Z01.810 - Encounter for preprocedural cardiovascular examination Plan: Preoperative cardiovascular exam in this young woman to undergo bariatric surgery for morbid obesity. Clinically she has no symptoms at good workload. Her echocardiogram shows normal LV systolic function. She has no concerning symptoms that would suggest myocardial ischemia. She does have left ventricular hypertrophy although this is not a contraindication for surgery. Blood pressure is currently well optimized. She is optimized to undergo the bariatric surgery with low risk for perioperative cardiovascular morbidity mortality and I think surgical weight loss or any weight loss by any method is going to significantly help her future health course. (2) LVH (left ventricular hypertrophy): Code(s): I51.7 - Cardiomegaly Plan: Notice severe left ventricular hypertrophy on the echocardiogram. Need to rule out infiltrative heart disease especially hemochromatosis. Will do some screening test for iron overload. If there is any abnormality will suggest a cardiac MRI. Likelihood of other infiltrative disorder such as amyloidosis is low. Most likely cause for left ventricular hypertrophy is longstanding morbid obesity, hypertension as well as sleep apnea. Her high blood pressure is currently well optimized on current therapy. Advised to monitor blood pressure intermittently at home on a regular basis to make sure that she has adequate control of her blood pressure. Low-salt diet was discussed. Continue CPAP therapy. I think weight loss should also help significantly with management of left ventricular hypertrophy. Potential adverse effect related to left ventricular hypertrophy is development of congestive heart failure syndrome. She has currently no signs or symptoms of heart failure. Advised to continue monitor for for the same. Follow up in the clinic in 1 year's time after an echocardiogram. Thank you for allowing me to partake in the care Orders: Orders IRON PROFILE Today I51.7 - Cardiomegaly Ferritin Today I51.7 - Cardiomegaly Transferrin Today I51.7 - Cardiomegaly Coding Level of Care Code New Pt Level 4 (18478) Diagnoses Preoperative cardiovascular examination Z01.810 LVH (left ventricular hypertrophy) I51.7 CPT Codes EKG - CPT: 60401-[id number], Complete ([id number])
[2023-05-21 12:51] VITALS: BP 116/70; PULSE 75; BMI 54.7
== END 2023-05-21 13:41 | disposition home or self-care (01) ==
PROVIDERS: PCP Internal Medicine; Visit Provider Internal Medicine Cardiovascular Disease
DX: Z01.810 Encounter for preprocedural cardiovascular examination (principal); I51.7 Cardiomegaly
CPT/HCPCS: 93010; 99204

== ENCOUNTER → 2023-05-21 12:41 | Outpatient (BNVA) | payer BC, SELFPAY | PROVIDERS: PCP Internal Medicine; Visit Provider Internal Medicine Cardiovascular Disease | DX: Z01.810 Encounter for preprocedural cardiovascular examination (principal); I51.7 Cardiomegaly | CPT/HCPCS: 93005 ==

== ENCOUNTER 2023-05-24 07:52 | Outpatient (REF) | payer BC, SELFPAY ==
[2023-05-24 08:27] LABS: MANUAL DIFF FLAG NO
[2023-05-24 08:31] LABS: Basophils Percent Auto 0.4 % (0-2); Eosinophils Absolute Auto 0.2 X10*3/uL (0.0-0.4); Eosinophils Percent Auto 2.7 % (0-4); Hematocrit 37.2 % (37.0-47.0); Hemoglobin 12.5 g/dl (12.0-16.0); Imm Gran Abs Auto 0.02 X10*3/uL (0.00-0.03); Imm Gran Pct Auto 0.3 % (0.0-0.4); Lymphocytes Percent Auto 13.6 % (20-40); Mean Corpuscular HGB Conc 33.6 g/dl (31.0-35.0); Mean Corpuscular Hemoglobin 29.3 pg (27.0-33.0); Mean Corpuscular Volume 87.3 fL (80.0-98.0); Mean Platelet Volume 9.8 fL (9.4-12.3); Monocytes Absolute Auto 0.6 X10*3/uL (0.1-1.2); Monocytes Percent Auto 8.8 % (2-11); Neutrophils Absolute Auto 5.4 x10*3/uL (2.0-8.3); Neutrophils Percent Auto 74.2 % (45-73); Platelet Count 283 X10*3/uL (160-400); Red Blood Count 4.26 X10*6/uL (4.20-5.50); Red Cell Distribution Width 12.4 % (11.0-16.0); White Blood Count 7.3 X10*3/uL (4.8-10.8)
[2023-05-24 08:46] LABS: Estimated Average Glucose 114 mg/dL; Hemoglobin A1c % 5.6 % (<6.0); Prothrombin Time 12.2 SEC (11.1-13.3)
[2023-05-24 08:48] LABS: Partial Thromboplastin Time 31.2 SEC (26.0-36.8)
[2023-05-24 08:50] LABS: Alanine Aminotransferase 27 U/L (0-31); Albumin Level 3.9 g/dL (3.5-5.0); Alkaline Phosphatase 78 U/L (39-117); Anion Gap 12 (12-20); Aspartate Amino Transferase 22 U/L (5-31); Bilirubin Total 0.4 mg/dL (0.0-1.0); Blood Urea Nitrogen 14 mg/dL (9-16); C Reactive Protein 1.01 mg/dL (< or = 0.50); Carbon Dioxide 26 mmol/L (22-29); Chloride 106 mmol/L (96-108); Cholesterol 175 mg/dL (<200); Estimated Glomerular Filt Rate > 60; Glucose Random 96 mg/dL (60-115); HDL Cholesterol 40 mg/dL (>40); LDL Cholesterol Calculated 106 mg/dL (<100); Potassium 3.6 mmol/L (3.3-5.1); Sodium 140 mmol/L (135-145); Total Protein 7.3 g/dL (6.5-8.0); Triglycerides 147 mg/dL (<150)
[2023-05-24 10:39] LABS: Insulin 16 uU/mL (2-29); TSH reflex Free T4 0.34 uIU/mL (0.32-4.0)
== END 2023-05-24 07:53 | disposition home or self-care (01) ==
LOC: HO.LAB 07:52
PROVIDERS: PCP Internal Medicine; Visit Provider Surgery
DX: E66.01 Morbid (severe) obesity due to excess calories (principal); G47.30 Sleep apnea, unspecified; I10 Essential (primary) hypertension; E78.5 Hyperlipidemia, unspecified
CPT/HCPCS: 36415; 80053; 80061; 83036; 83525; 84443; 85025; 85610; 85730; 86140

== ENCOUNTER 2023-06-06 05:57 | Inpatient (IN) | payer BC, SELFPAY ==
[2023-05-23 11:34] VITALS: BMI 53.7
--- NOTE | 2023-06-04 12:22 | P.CONAN_ITS ---
HPI - Anesthesia Eval Consult details Narrative: 37yo F for Gastrectomy Sleeve-EGD, possible diaphragmatic hernia, possible ventral hernia, possible open Cardiac optimized PMF Active Problems Active Problems: All Active Problems Vitamin B12 deficiency (Acute) LVH (left ventricular hypertrophy) (Acute) Abnormal echocardiogram (Acute) Anxiety with depression (Acute) GERD (gastroesophageal reflux disease) (Acute) HTN (hypertension), benign (Acute) Pre-op evaluation (Acute) Morbid obesity (Acute) Nephrolithiasis (Acute) Upper respiratory tract infection (Acute) Menometrorrhagia (Acute) Hyperlipidemia (Acute) Asthma (Acute) Migraine aura without headache (Acute) Sleep apnea (Acute) Past Medical History Medical History Obstructive sleep apnea on CPAP Hiatal hernia Anxiety Elevated cholesterol HTN (hypertension) Hyperlipidemia Ectatic thoracic aorta Migraine aura without headache Sleep apnea Asthma Family History Family History Paternal Grandmother Breast CA Surgical History Surgical History (Updated 06/11/23 @ 10:35 by Eunice Holliday CMA) Hx of laparoscopic partial gastrectomy History of uvulectomy Hx of tonsillectomy Social History Social History Household Members: Spouse and Children Housing: House Are you a primary progressive care unit registered nurse to a significant other at home: No Do you presently have visiting nurse or other home services: No Alcohol intake: current Alcohol intake frequency: a few times a month Patient Tobacco Use Status: Never used Tobacco Substance Use Type: Marijuana Sexual orientation: Straight/Heterosexual Gender identity: Female Meds Allergies Allergy/AdvReac Type Severity Reaction Status Date / Time Sulfa (Sulfonamide Allergy Unknown YEAST Verified 06/11/23 10:34 Antibiotics) INFECTION, [SULFA(SULFONAMIDE yeast ANTIBIOTICS)] infections hard shell seafood Allergy Unknown swelling Uncoded 06/11/23 10:34 of throat, vomiting seafood Allergy Unknown unknown Uncoded 06/11/23 10:34 seasonal Allergy Unknown unknown Uncoded 06/11/23 10:34 SHELLFISH Allergy Unknown RASH Uncoded 06/11/23 10:34 Home Medications ?Medication ?Instructions ?Recorded ?Confirmed ?Last Taken ?Type losartan 25 mg tablet 25 mg PO DAILY 05/04/22 05/23/23 06/06/23 History albuterol sulfate 90 mcg/actuation 2 puff inhalation Q6H PRN 03/04/23 05/23/23 05/06/23 History aerosol inhaler Shortness Of Breath Or Wheezing venlafaxine 75 mg capsule,extended 150 mg PO DAILY 05/21/23 05/23/23 06/06/23 History release 24 hr Exam Height,Weight and Vital Signs: Height 5 ft 3 in Weight 137.438 kg Pertinent Lab Results Pertinent Lab Results: Laboratory Tests 05/24/23 08:25 Blood Type B Positive Antibody Screen NEGATIVE Laboratory Tests 05/24/23 08:25 WBC 7.3 Hgb 12.5 Hct 37.2 Plt Count 283 Sodium 140 Potassium 3.6 Chloride 106 Carbon Dioxide 26 BUN 14 Creatinine 0.77 Laboratory Tests 05/24/23 08:25 PT 12.2 INR 1.0 APTT 31.2 Narrative Narrative: EKG 05/2023 normal sinus rhythm with sinus arrhythmia with normal EKG NM trina perf SPECT rest & str 03/2023 IMPRESSION: 1. Myocardial perfusion imaging study shows no clear evidence of any ischemia or infarction. Probably normal myocardial perfusion. 2. Gated LVEF is 66% during stress and 53% during rest. 3. Transient ischemic dilatation not present. EKG component of the test reported separately. ECHO 11/2022 Conclusions: - Normal left ventricular size and systolic function. There is severely increased left ventricular wall thickness. The visually estimated ejection fraction is between 55-60%. - Normal right ventricular cavity size. There is borderline right ventricular systolic function. Assessment and Plan Assessment Anesthesia Assessment: Chart Reviewed
[2023-06-06] VITALS (10 sets, daily range): BP systolic 119–150; BP diastolic 64–86; PULSE 70–112; RESP 16–18; TEMP 36.2–37.3; O2SAT 94–98; BMI 50.8
[2023-06-06 06:16] LABS: UPreg QC Valid YES; Urine Pregnancy NEGATIVE (NEGATIVE)
--- NOTE | 2023-06-06 06:17 | PHA.MEDREC ---
Pharmacy Consult ? Medication Reconciliation Pharmacy has completed the medication reconciliation. Reviewed med rec done by nursing
[2023-06-06] MEDS: Aprepitant 32 MG/4.4 ML VIAL IVPUSH (06:20)
[2023-06-06] MEDS: Lactated Ringers 1,000 ML 999 ML IV (06:24)
--- NOTE | 2023-06-06 07:08 | HO.ANESPROP2 ---
[facility], [facility] Active Problems Active Problems: All Active Problems Vitamin B12 deficiency (Acute) LVH (left ventricular hypertrophy) (Acute) Abnormal echocardiogram (Acute) Anxiety with depression (Acute) GERD (gastroesophageal reflux disease) (Acute) HTN (hypertension), benign (Acute) Pre-op evaluation (Acute) Morbid obesity (Acute) Nephrolithiasis (Acute) Upper respiratory tract infection (Acute) Menometrorrhagia (Acute) Hyperlipidemia (Acute) Asthma (Acute) Migraine aura without headache (Acute) Sleep apnea (Acute) Past Medical History Medical History Obstructive sleep apnea on CPAP Hiatal hernia Anxiety Elevated cholesterol HTN (hypertension) Hyperlipidemia Ectatic thoracic aorta Migraine aura without headache Sleep apnea Asthma Family History Family History Paternal Grandmother Breast CA Surgical History Surgical History History of uvulectomy Hx of tonsillectomy History of Problems with Anesthesia: No Social History Social History Are you a primary career professional to a significant other at home: No Do you presently have visiting nurse or other home services: No Alcohol intake: current Alcohol intake frequency: a few times a month Patient Tobacco Use Status: Never used Tobacco Use of substances other than those prescribed or required for medical reasons: Yes Substance Use Type: Marijuana Substance Use Type Other:: edibles Substance Use Frequency: Weekly Have you been hit, kicked, punched, or otherwise hurt by someone within the past year? If so, by whom?: No Are you DNR?: No Advance Directives: No Advance Directives Information Provided: No Advance Directives on File: No Recently lost weight without trying: No Eating poorly because of decreased appetite: No Nutrition Risks: No Nutritional Risk Patient : No : No Poor oral hygiene: No Sexual orientation: Straight/Heterosexual Gender identity: Female Meds Allergies Allergy/AdvReac Type Severity Reaction Status Date / Time Sulfa (Sulfonamide Allergy Unknown YEAST Verified 05/17/23 08:39 Antibiotics) INFECTION, [SULFA(SULFONAMIDE yeast ANTIBIOTICS)] infections hard shell seafood Allergy Unknown swelling Uncoded 05/17/23 08:39 of throat, vomiting seafood Allergy Unknown unknown Uncoded 05/17/23 08:39 seasonal Allergy Unknown unknown Uncoded 05/17/23 08:39 SHELLFISH Allergy Unknown RASH Uncoded 05/17/23 08:39 Active Medications: Current Medications Albuterol Sulfate (Albuterol Sulfate (0.083%) 2.5 Mg/3 Ml Vial.Neb) 2.5 mg INHALE ONCE PRN PRN Reason: Shortness of Breath/Wheezing Lactated Ringer's (Lr) 1,000 mls @ 999 mls/hr IV .Q1H1M [facility] Stop: 06/06/23 08:00 Last Admin: 06/06/23 06:24 Dose: 999 mls/hr Lactated Ringer's (Lr) 1,000 mls @ 100 mls/hr IVCONT .Q10H [facility] Home Medications ?Medication ?Instructions ?Recorded ?Confirmed ?Last Taken ?Type losartan 25 mg tablet 25 mg PO DAILY 05/04/22 05/23/23 06/06/23 History albuterol sulfate 90 mcg/actuation 2 puff inhalation Q6H PRN 03/04/23 05/23/23 05/06/23 History aerosol inhaler Shortness Of Breath Or Wheezing venlafaxine 75 mg capsule,extended 150 mg PO DAILY 05/21/23 05/23/23 06/06/23 History release 24 hr Exam Height,Weight and Vital Signs: Height 5 ft 3 in Weight 130.09 kg Last Vital Signs Temp 97.1 F 06/06/23 05:59 Pulse 82 06/06/23 05:59 Resp 18 06/06/23 05:59 BP 119/68 06/06/23 05:59 Pulse Ox 98 06/06/23 05:59 O2 Del Method Room Air 06/06/23 05:59 Pertinent Lab Results Pertinent Lab Results: Laboratory Tests 05/24/23 06/06/23 08:25 05:38 Urine Test NEGATIVE Blood Type B Positive Antibody Screen NEGATIVE Airway Mallampati Class: III TM Dist: >3cm Neck ROM: Full Loose/Missing/Broken Teeth: No Heart: RRR Lungs: CTA Assessment and Plan Assessment Anesthesia Assessment: Anesthesia Plan Discussed and Chart Reviewed Final Anesthetic Review History of Problems with Anesthesia: No NPO: Yes ASA Class: III Final Preanesthetic Review: Meds/Allgs Chart Reviewed, Consent Obtained/Reviewed and Anes Risks/Benef Reviewed Patient Risk: Intermediate Procedure Risk: Intermediate Anesthetic Plan Anesthetic Plan: GA Disposition: Standard PACU
--- NOTE | 2023-06-06 07:37 | P.HPSUR_ITS ---
Pre-Procedural Eval Section A - 24 Hr Update-Section A only Date of Service: 06/06/23 The patient is an INPATIENT: Yes The patient has been examined within 24 hours of the surgical procedure. The History & Physical has been completed within 30 days and I have reviewed it.: Yes Section B - Complete if H&P > 30 days Chief Complaint: Morbid obesity Relevant Family History (Specify if Yes): No Relevant Social History: None Present Medications: None Medical History: No relevant PMH History of Previous Operations: No relevant previous surgery Allergies: Allergies Allergy/AdvReac Type Severity Reaction Status Date / Time Sulfa (Sulfonamide Allergy Unknown YEAST Verified 05/17/23 08:39 Antibiotics) INFECTION, [SULFA(SULFONAMIDE yeast ANTIBIOTICS)] infections hard shell seafood Allergy Unknown swelling Uncoded 05/17/23 08:39 of throat, vomiting seafood Allergy Unknown unknown Uncoded 05/17/23 08:39 seasonal Allergy Unknown unknown Uncoded 05/17/23 08:39 SHELLFISH Allergy Unknown RASH Uncoded 05/17/23 08:39 Review of Systems Sugical H&P ROS: Negative: Constitution, Cardiovascular, Respiratory, Neurological, Psychiatric, Hem-Onc, Allergic/Immunologic, Gastrointestinal, G enitourinary, Musculoskeletal, Integumentary, Endocrine and Eyes/Ears/Nose/Throat Exam Surgical H&P Exam: Normal: HEENT, Normal: Heart, Normal: Lungs, Normal: Extremities, Normal: Abdomen, Normal: Skin and Normal: Neurological Plan Diagnosis/Plan: Unchanged I have reviewed the history and physical and performed a pertinent physical examination on my patient. No changes have occurred unless specified. Time Spent With Patient Time: Total time managing care of this patient today ____ minutes.
--- NOTE | 2023-06-06 07:44 | P.BOP_ITS ---
Brief Operative Note Date of Service: 06/06/23 Pre-op diagnosis: Morbid obesity with comorbidities (see below) Post-op diagnosis: same (& abdominal adhesions) Procedure: INITIAL PATIENT BMI ON PRESENTATION AT OUR OFFICE: 60.1 kg/m2 LAST BMI BEFORE SURGERY: 51.5 kg/,2 COMORBIDITIES: sleep apnea on CPAP, hypertension, depression, GERD, hyperlipidemia, asthma, nephrolithiasis, GERD, hepato-splenomegaly, liver fibrosis ?The patient presented to the Weight Management Program with significant obesity that was negatively impacting the patient's comorbidities as listed above.? The program is a phased program with a special focus on preoperative medical weight management to promote substantial weight loss and prepare the patients for the second phase of the program: bariatric surgery. The patient participated in an intensive weekly lifestyle ?intervention and exercise program during which the patient ?has lost between the initial office visit and the last preoperative visit 54.5 lbs, or 15.81% of initial actual body weight. It was deemed appropriate for the patient to now have bariatric surgery. In light of the current Covid-19 pandemic and the well documented strong association of obesity and increased risk of worse outcomes if infected with Covid-19 (REFERENCES: https://pubmed.ncbi.nlm.nih.gov/07275914/ ,? https://pubmed.ncbi.nlm.nih.gov/60404139/ ), any delay in undergoing bariatric surgery may lead to the patient's worsening health condition and increased?risk of more severe Covid-19 disease if infected. In addition a recent?study from [facility] published in [facility] on 02/06/2021 ([email or web address]) found that, among patients with obesity, substantial weight loss achieved with surgery was associated with improved outcomes of COVID-19 infection. The findings suggest that obesity can be a modifiable risk factor for the severity of COVID-19 infection. In addition, the patient met the BMI-criteria for bariatric surgery based on the BMI on initial presentation. The patient should not be penalized for achieving such weight loss because ?it is not sustainable long-term without surgical intervention and it was achieved in preparation for bariatric surgery ?under my direction and based on my published research ([email or web address]).[email or web address] and? https://www.soard.org/article/[email or web address](11)07730-X/pdf ) ?that a 10% preoperative weight loss improves long-term weight loss after surgery and reduces perioperative complications.? Insurance carriers such as [facility] have endorsed my recommendations ?and have included in their policies criteria to include a 10% preoperative weight loss requirement. PROCEDURE: Esophago-gastroscopy, laparoscopic sleeve gastrectomy and laparoscopic gastropexy INDICATIONS: This is a 37 year-old female who was electively scheduled for laparoscopic, possibly open sleeve gastrectomy. The risks and complications of the procedure were discussed with the patient in advance, particularly the possibility of ; pulmonary embolism; staple line leak; bleeding; GERD; cardiac, pulmonary, or renal complications; as well as long-term problems such as insufficient weight loss, vitamin deficiency, strictures, or ulcers. The patient understood all the risks, and was in agreement to proceed with surgery. DESCRIPTION OF PROCEDURE: After informed consent was obtained from the patient, the patient was given preoperative antibiotics, and was transferred to the operating room. After successful induction of general anesthesia, pneumatic compression devices were placed on both lower extremities. An upper endoscopy was performed next. The oropharynx and esophagus appeared to be within normal limits. There was no diaphragmatic hernia present. The stomach was entered. Then after all fluid and air were suctioned and the stomach was fully decompressed, the scope was withdrawn and secured in the mid esophagus. The patient was then prepped and draped in the usual sterile manner, and abdominal access was established at the right upper quadrant with the Mohsen technique. A 12 mm blunt port was inserted, and the abdomen was insufflated with CO2 to a pressure of 15 mmHg. Under direct visualization, additional ports were placed, specifically two 5 mm Versi-step ports to the left upper quadrant, and a 5 mm Versi-Step port to the right upper quadrant. 1% lidocaine plain was used to infiltrate all port sites as well as all fascia defects. Using the EndoClose suture passer device, I placed a #1 Polysorb tie across the falciform ligament in order to retract it up against the abdominal wall and prevent injury of the ligament with our instruments during the procedure. Following that, the patient was placed in a steep reverse Trendelenburg position. An additional 5 mm port was placed to the right flank for the Mediflex retractor that was used to retract the left lobe of the liver. The gastro-esophageal fat pad was opened with the ultrasonic device (Thunderbeat, Olympus) and the anterior esophagus and hiatus were exposed. The angle of His was opened with the ultrasonic device the fundus of the stomach from any diaphragmatic and splenic attachments. I then opened the gastrocolic ligament between the transverse colon and the greater curvature of the stomach with the ultrasonic device to enter the lesser sac and facilitate the ligation of the short gastric vessels. I started at a mid-point along the greater curvature and using the Thunderbeat, all short gastric vessels were divided all the way to the angle of His until the left floyd was completely dissected at its entirety. I then divided the gastro-colic ligament distally to a distance of about 3-4 cm proximal to the pylorus. There were extensive congenital adhesions between the pancreas and posterior gastric wall. Those were lysed completely with the ultrasonic device. Adhesiolysis took approximately 45 min to complete. The stomach was then divided transversely with three Endo MALLY-45 purple and three MALLY-60 articulating purple loads using the SIGNIA stapler and loads. Every effort was made that the gastric sleeve had a tubular shape and an even caliber throughout. Once the sleeve resection was completed, the staple line of the gastric sleeve was reinforced with Hemoclips. The resected stomach was retrieved without difficulty from the Mohsen port. A gastropexy was then performed in order to prevent postoperative GERD and partial gastric volvulus. Several interrupted 2.0 Surgidac sutures were placed between the sleeve's staple line and the previously divided greater omentum and gastro-colic ligament using the Endo-Stitch device. ?An upper endoscopy was performed. There was no narrowing at the GE junction. The scope was easily advanced all the way to the pylorus which was clearly visualized. There was no narrowing anywhere and the sleeve's caliber was even throughout. The sleeve's staple line was inspected and there was no evidence of ischemia, bleeding or dehiscence. At that point the gastroscope was withdrawn from the patient?s mouth while we were decompressing the bowel and the stomach from any remaining air. I looked into the lesser sac to see how the sleeve was situating and it was situating well. There was no bleeding from the staple line, spleen, or short gastric vessels. The Mediflex retractor was removed, and the undersurface of the liver was inspected and there was no bleeding. The patient was placed in supine position. I closed the fascial defect of the 12 mm port site with a figure of eight #1 Polysorb suture. Then 30cc Ropivacaine plain with 10 mg of Dexamethasone were used to infiltrate the fascial closure as well as all skin incisions. A total of 7ml Zynrelef was applied in the Mohsen wound. At this point, the abdomen was deflated, all ports were removed under direct vision, and no bleeding was noted from any of the port sites. The skin incisions were irrigated with saline and were closed with 4-0 absorbable monofilament sutures. Steri-Strips and OpSites were used to cover all incisions. The patient was extubated and was transferred in stable condition to the recovery room for further care. I was present and performed all goode parts of the procedure. Mr. Bull was the first aid teacher. There were no residents to assist with this case. Raj Pineda MD, PhD, FACS Surgeon: Jovany Pineda MD Anesthesia: GETA, local and other (TAP block and 7ml Zynrelef) Was an Occupational Safety Specialist used for this Procedure?: No Occupational Safety Specialist: Stevie Bull Estimated blood loss (mL): 10 IV fluids (mL): 2,500 Urine output (mL): 0 (No Adams to record output) Pathology: other (Stomach) Condition: stable Disposition: PACU
--- NOTE | 2023-06-06 07:48 | P.PNGS_ITS ---
Subjective Subjective Date of Service: 06/07/23 Interval history: Feels well. Mild incisional pain. She is tolerating phase 1 bariatric diet Physical Exam 2 Vital Signs: Vital Signs: Last Vital Signs Temp 97.1 F 06/06/23 05:59 Pulse 82 06/06/23 05:59 Resp 18 06/06/23 05:59 BP 119/68 06/06/23 05:59 Pulse Ox 98 06/06/23 05:59 O2 Del Method Room Air 06/06/23 05:59 BMI result Body Mass Index 50.8 GI: Inspection: Yes normal to inspection, Yes incision (clean, dry and intact) and Yes obesity Palpation (GI): Soft to palpation Extrem: Right lower extremity: normal to inspection (no calf tenderness) L eft lower extremity: normal to inspection (no calf tenderness) Objective Data Active Medications Albuterol Sulfate (Albuterol Sulfate (0.083%) 2.5 Mg/3 Ml Vial.Neb) 2.5 mg INHALE ONCE PRN PRN Reason: Shortness of Breath/Wheezing Lactated Ringer's (Lr) 1,000 mls @ 999 mls/hr IV .Q1H1M [facility] Stop: 06/06/23 08:00 Last Admin: 06/06/23 06:24 Dose: 999 mls/hr Documented By: KELLEY Lactated Ringer's (Lr) 1,000 mls @ 100 mls/hr IVCONT .Q10H [facility] Labs 06/07/23 05:31 06/07/23 05:31 Labs: Laboratory Results - last 24 hr 06/06/23 05:38 Urine Test NEGATIVE Procedures Date of Service Date of Service: 06/07/23 Progress Note: A&P Assessment and plan (1) Morbid obesity: Status: Acute Assessment and Plan: s/p laparoscopic sleeve gastrectomy, lysis of adhesions and gastropexy Doing well Will check am labs and if OK the patient will be discharged home (2) Obstructive sleep apnea on CPAP: Status: Acute (3) Asthma: Status: Acute (4) Hyperlipidemia: Status: Acute (5) Nephrolithiasis: Status: Acute (6) HTN (hypertension), benign: Status: Acute (7) GERD (gastroesophageal reflux disease): Status: Acute (8) Anxiety with depression: Status: Acute (9) LVH (left ventricular hypertrophy): Status: Acute (10) Liver fibrosis: Status: Acute (11) S/P laparoscopic sleeve gastrectomy: Status: Acute (12) Congenital intra-abdominal adhesions: Status: Acute Time Spent With Patient Time: Total time managing care of this patient today ____ minutes. Quality Stroke Does the patient have a stroke diagnosis?: No VTE Prior VTE?: No VTE Risk Level:: Surgical - moderate VTE Device Contraindication: N/A - Device Ordered VTE Drug Contraindication: Treatment Not Indicated
--- NOTE | 2023-06-06 10:18 | PM.DS ---
DS: Providers Provider Date of Service: 06/07/23 Date of admission: 06/06/23 05:57 Primary care physician: Oscar Griffin MD DS: Diagnosis Discharge Diagnosis (1) Morbid obesity: Status: Acute (2) Obstructive sleep apnea on CPAP: Status: Acute (3) Asthma: Status: Acute (4) Hyperlipidemia: Status: Acute (5) Nephrolithiasis: Status: Acute (6) HTN (hypertension), benign: Status: Acute (7) GERD (gastroesophageal reflux disease): Status: Acute (8) Anxiety with depression: Status: Acute (9) LVH (left ventricular hypertrophy): Status: Acute (10) Liver fibrosis: Status: Acute DS: Summary Hospital Course Hospital Course: ADMITTING DIAGNOSIS: morbid obesity, LVH, HTN, ITALIA ? DISCHARGE DIAGNOSIS: same, s/p laparoscopic sleeve gastrectomy ? PAST SURGICAL HISTORY: uvulectomy, tonsillectomy ? PROCEDURE: upper endoscopy, laparoscopic sleeve gastrectomy ? DISCHARGE SUMMARY: ? History of Present Illness: ? The patient is a?37 year-old woman with a BMI of?61 kg/m2 and associated co-morbidities as described above. The patient had extensive work-up,lost?42.4 lbs preoperatively and was electively scheduled for laparoscopic, possible open sleeve gastrectomy and gastropexy. Risks and complications of the surgery were discussed with the patient in advance, particularly the possibility of , pulmonary embolism, anastomotic leak, bleeding, bowel injury, GERD, cardiac, renal or pulmonary complications. The patient understood all the risks and was in agreement with the surgical plan. ? Hospital Course: ? The patient underwent an uneventful laparoscopic sleeve gastrectomy with gastropexy on the day of admission. Postoperatively, the patient was transferred to the surgical floor. The patient received IV Acetaminophen and IV dilaudid for pain control. Patient was started on bariatric phase 1 diet POD #0. On postoperative day one, the patient was feeling well without nausea, vomiting, fevers, or tachycardia. The patient had some mild incisional pain and the abdomen was soft. ? On the morning of postoperative day one, the patient was continued on 1 ounce of water or ice every half hour. During the day, the patient did fairly well, having some incisional pain, but able to ambulate adequately and to tolerate liquids well. ? Since the patient is doing well, we decided that the patient was ready to be discharged. The patient was given instructions to follow-up with me next week and to call my office for any fever over 101, persistent abdominal pain, nausea, vomiting, GERD, symptoms of DVT such as calf tenderness, or leg swelling, or pulmonary embolism such as chest pain or shortness of breath. The patient was also instructed to drink 40-60 ounces of liquids per day using the 1-ounce cups. The patient had been given prescriptions for Tylenol for pain, Zofran prn for nausea, and pantoprazole and carafate previously. The patient was encouraged to ambulate and use the incentive spirometer. The patient was allowed to shower, but no baths, and encouraged to stay active at home. All of these instructions were given to the patient personally. All questions were answered and the patient understood all instructions, the instructions were also given to the patient in print. Time Attestation Total time managing care of this patient today: 25 mintues. Discharge Coordination Time (in mins): 25 Quality: Safe Use of Opioids Does Pt have an Active Cancer Diagnosis on the Problem List?: No Quality: Stroke Does the patient have a stroke diagnosis?: No Physical Exam Vital Signs: Vital Signs: Last Vital Signs Temp 97.1 F 06/06/23 05:59 Pulse 82 06/06/23 05:59 Resp 18 06/06/23 05:59 BP 119/68 06/06/23 05:59 Pulse Ox 98 06/06/23 05:59 O2 Del Method Room Air 06/06/23 05:59 BMI result Body Mass Index 50.8 DS: Data Data Completed and Pending Pending studies at discharge: Pending at discharge 06/06/23 09:27 Surgical [PTH] Routine Labs on day of discharge: Laboratory Results - last 24 hr 06/06/23 05:38 Urine Test NEGATIVE Discharge Plan Discharge Anticipated Discharge Date/Time: 06/07/23 10:00 Patient Disposition: Home, Self-Care Discharge Diagnosis: s/p laparoscopic sleeve gastrectomy Referrals: Oscar Griffin MD [Primary Care Provider] - 1 Week Discharge Medications: Continued venlafaxine 75 mg capsule,extended release 24hr 150 mg PO DAILY albuterol sulfate 90 mcg/actuation HFA aerosol inhaler 2 puff inhalation Q6H PRN (Reason: Shortness Of Breath Or Wheezing) pantoprazole 40 mg tablet,delayed release (DR/EC) 40 mg PO DAILY Qty: 90 0RF sucralfate 100 mg/mL suspension 10 ml PO BID Qty: 600 2RF Rx Instructions: postop med ondansetron 4 mg tablet,disintegrating 4 mg PO Q12H Qty: 20 0RF Patient Comments: postop med Rx Instructions: Only take one every 12 hours as needed if you have nausea Held losartan 25 mg tablet 25 mg PO DAILY Hold Instructions: Resume on 06/08/23. Check your blood pressure every morning as soon as you wake up and send it to Dr. Pineda. Do no take the blood pressure medication if the blood pressure is below 120/70. Wait every day to hear back from Dr. Pineda before you take the medication. Discontinued cholecalciferol (vitamin D3) [Vitamin D3] 25 mcg (1,000 unit) capsule 25 mcg PO DAILY Qty: 90 3RF cyanocobalamin (vitamin B-12) 1,000 mcg tablet, sublingual 500 mcg sublingual DAILY Qty: 30 1RF polyethylene glycol 3350 [Miralax] 17 gram powder in packet 17 g PO DAILY Qty: 14 0RF Rx Instructions: Mix each packet with 8oz of water, Crystal light, or Gatorade zero, or Propel and do 7 packets on 06/04/23 and another 7 packets on 06/05/23 Discharge Orders: Discharge Order (Routine); Ordered 06/07/23 Ordered By: Jovany Pineda Activity on Discharge: No heavy lifting Stand Alone Forms: Patient Portal Discharge page Print Language: [place] Care Plan Goals: weight loss Health Concerns: morbid obesity Plan of Treatment: No tub baths, sex or returning to work until discussed at first post op appointment. No exercise, alcohol, tobacco or illegal drug use. Continue to use incentive spirometer hourly while awake. Walk in home for 5- 10 minutes every 2 hours during the first week. Follow all instructions in the bariatric handbook and call with any questions.Discharge Instructions 1. Please call your doctor or come back to the emergency room should any new symptoms arise. 2. You will receive a courtesy call from [facility] 24-48 hours after discharge. 3. Activity: abstain from alcohol, practice limited stair climbing, no bending, no driving, no exercise, no illicit substances, no lifting, no sex, no tub bath, no work. 4. Diet: continue as discussed with Dr. Pineda. 5. Dressing Change/Wound Care: Your incision is covered by clear bandages and guaze underneath. If the area is tender, you may apply an ice pack for short intervals (no more than 20 minutes on, followed by at least 20 minutes off). Do not apply heat. Do not use creams, lotions, or topical antibiotics unless instructed to do so by your surgeon. These can cause infection or allergic reaction. 6. Call your doctor if: - Your temperature exceeds 101.5 F - You experience excessive pain or swelling - You have an unexpected reaction to medication - You have excessive bleeding - You experience continued vomiting/nausea - Your incision begins to separate - Your incision shows signs of infection such as increased redness, swelling, excessive pain, heat, or drainage (light blood or clear fluid is normal) 7. General instructions: No lifting greater than 5 lbs for 1 week and not more than 20lbs the next 3?weeks. No driving until seen at the office in 5-7 days after surgery. If you do not move your bowels in the next 2 days, please tell?Dr. Pineda. Please walk around your home every hour or two to prevent blood clots from forming in your legs. You do not need to wake from sleeping to walk. Please sleep in a bed or couch to prevent kinking at the hips and knees. Please take your incentive spirometer (your lung gun number) home with you and use it for the next few days to prevent pneumonia. You may shower, no hot tubs, baths or swimming pools.?Please follow the post op diet instructions you are?given by Dr Pineda? and text me daily at 5-6pm for an update.?If you have any issues or concerns or questions please communicate this to him via text.? The Celebrate shakes have all of the bariatric vitamins you need if you consume these shakes. If you are drinking other protein shakes, you will need to purchase the Celebrate multivitamins and calcium that are available in the hospital gift shop on the first floor of the main hospital.??Do not take anything without first discussing with Dr Pineda. Please make sure you are consuming at least 40 ounces of fluids per day starting the?day AFTER your discharge from the hospital. Always drink 1-2 ml per minute using the 5ml?syringe. If you drink faster you may experience?bloating,?gas pain, burping, nausea or heartburn. In that case please slow down your pace and use the syringe to?understand better the?proper?pace and volume of drinking. Do not hesitate to contact the office with any questions at . The patient's medical history has been reviewed and they are considered low risk for post op DVT and therefore DVT prophylaxis is not considered necessary. Travel after surgery was reviewed. The patient has not disclosed any travel plans during the first 30 days after surgery and they have been advised that within the first 30 days after surgery any bus, plane, train or car travel over 2 hours in duration is contraindicated due to the possibility of developing blood clots from immobility. Any travel, needs to include periods of ambulation of 10 minutes in duration every 2 hours.? The patient was instructed to discuss any plans for travel during this period with their bariatric surgeon. Assessment: stable s/p laparoscopic sleeve gastrectomy Discharge Date/Time: 06/07/23 09:30
[2023-06-06 10:47] LABS: Anion Gap 13 (12-20); Blood Urea Nitrogen 8 mg/dL (9-16); Calcium 9.6 mg/dL (8.4-10.2); Carbon Dioxide 29 mmol/L (22-29); Chloride 103 mmol/L (96-108); Creatinine Clr Calc Pharmacy 134.5; Estimated Glomerular Filt Rate > 60; Glucose Random 145 mg/dL (60-115); Potassium 3.8 mmol/L (3.3-5.1); Sodium 141 mmol/L (135-145)
[2023-06-06 10:55] LABS: Hematocrit 37.8 % (37.0-47.0); Hemoglobin 12.5 g/dl (12.0-16.0)
[2023-06-06] MEDS: Lactated Ringers 1,000 ML 100 ML IVCONT ×2 (11:17→22:12)
[2023-06-06] MEDS: ceFAZolin Sodium/Dextrose,Iso 2 GM/50 ML PIGGYBACK IV (15:38)
[2023-06-06] MEDS: 0.9 % Sodium Chloride Flush 3 ML SYRINGE IVFLUSH ×2 (15:50→22:18)
[2023-06-06] MEDS: Acetaminophen 1,000 MG/100 ML PIGGYBACK 16.7 MG IV ×2 (16:18→22:13)
[2023-06-06] MEDS: Famotidine/PF 20 MG/2 ML VIAL IVPUSH (22:13)
[2023-06-07 04:00] VITALS: BP 140/79; PULSE 69; RESP 16; TEMP 36.5; O2SAT 99
[2023-06-07] MEDS: Acetaminophen 1,000 MG/100 ML PIGGYBACK 16.7 MG IV (04:24)
[2023-06-07] MEDS: Lactated Ringers 1,000 ML 100 ML IVCONT (05:22)
[2023-06-07 05:53] LABS: MANUAL DIFF FLAG NO
[2023-06-07 06:08] LABS: Anion Gap 14 (12-20); Blood Urea Nitrogen 7 mg/dL (9-16); Calcium 9.1 mg/dL (8.4-10.2); Carbon Dioxide 27 mmol/L (22-29); Chloride 106 mmol/L (96-108); Creatinine Clr Calc Pharmacy 148.5; Estimated Glomerular Filt Rate > 60; Glucose Random 114 mg/dL (60-115); Potassium 4.1 mmol/L (3.3-5.1); Sodium 143 mmol/L (135-145)
[2023-06-07 06:24] LABS: Basophils Percent Auto 0.1 % (0-2); Hematocrit 35.7 % (37.0-47.0); Hemoglobin 11.8 g/dl (12.0-16.0); Imm Gran Abs Auto 0.09 X10*3/uL (0.00-0.03); Lymphocytes Absolute Auto 1.6 X10*3/uL (1.2-4.9); Lymphocytes Percent Auto 17.8 % (20-40); Mean Corpuscular HGB Conc 33.1 g/dl (31.0-35.0); Mean Corpuscular Hemoglobin 29.6 pg (27.0-33.0); Mean Corpuscular Volume 89.5 fL (80.0-98.0); Mean Platelet Volume 10.9 fL (9.4-12.3); Monocytes Absolute Auto 0.7 X10*3/uL (0.1-1.2); Monocytes Percent Auto 7.2 % (2-11); Neutrophils Absolute Auto 6.7 x10*3/uL (2.0-8.3); Neutrophils Percent Auto 73.9 % (45-73); Platelet Count 283 X10*3/uL (160-400); Red Blood Count 3.99 X10*6/uL (4.20-5.50); Red Cell Distribution Width 12.6 % (11.0-16.0)
[2023-06-07 07:36] VITALS: BP 139/75; PULSE 70; TEMP 36.1; O2SAT 99
--- NOTE | 2023-06-07 08:27 | MHC.CM.PN ---
CM MET WITH PT AT BEDSIDE. PT LIVES WITH SPOUSE AND IS INDEPENDENT AT [facility], EMPLOYED F/T. NO HCP, DECLINES TO COMPLETE ONE AT THIS TIME. PCP DR. MERCEDES DP: PT HAS BEEN MEDICALLY CLEARED FOR DC HOME, NO SERVICES. [facility] WILL TRANSPORT
[2023-06-07 08:37] VITALS: BP 139/75
[2023-06-07] MEDS: Losartan Potassium 25 MG TABLET PO (08:37)
[2023-06-07] MEDS: Venlafaxine HCl ER 150 MG CAP.ER.24H PO (08:37)
[2023-06-07] MEDS: Famotidine/PF 20 MG/2 ML VIAL IVPUSH (08:37)
[2023-06-07] MEDS: 0.9 % Sodium Chloride Flush 3 ML SYRINGE IVFLUSH (08:39)
--- NOTE | 2023-06-07 13:11 | HO.POSTANES ---
Post Anesthesia Evaluation Post Anesthesia Evaluation Date of Service: 06/06/23 Vital Signs: Vital Signs Temp Pulse Resp BP Pulse Ox O2 Del Method 06/07/23 08:37 139/75 06/07/23 07:36 97 F 70 139/75 99 Room Air 06/07/23 04:00 97.7 F 69 16 140/79 H 99 Room Air Anesthesia: General Endotracheal-GETA Mental Status: Awake Pain Control: Satisfactory Nausea/Vomiting: None Hydration: Adequate Anesthesia-Related Issues: No Anes. Related Issues
== END 2023-06-07 09:30 | disposition home or self-care (01) | DRG 403 ==
LOC: HO.SSSA 10:21 → HO.S3 10:36
PROVIDERS: Nurse Practitioner; Physician Assistant Surgical; Admitting Provider Surgery; PCP Internal Medicine; Visit Provider Surgery
PROC: 0DB64Z3 Excision of Stomach, Percutaneous Endoscopic Approach, Vertical (ICD-10-PCS; CPT 43845; principal; 2023-06-06 07:30)
DX: E66.01 Morbid (severe) obesity due to excess calories (principal); K74.00 Hepatic fibrosis, unspecified; Q43.3 Congenital malformations of intestinal fixation; I11.9 Hypertensive heart disease without heart failure; F32.A Depression, unspecified; F41.9 Anxiety disorder, unspecified; E78.5 Hyperlipidemia, unspecified; G47.33 Obstructive sleep apnea (adult) (pediatric); K21.9 Gastro-esophageal reflux disease without esophagitis; J45.909 Unspecified asthma, uncomplicated; Z68.43 Body mass index [BMI] 50.0-59.9, adult; Z79.899 Other long term (current) drug therapy
CPT/HCPCS: 36415; 80048; 81025; 85014; 85018; 85025; 86850; 86900; 86901; 88304; 88305; 88307; 88342; A4649; C9088; C9145; J0131; J0690; J1100; J1170; J2250; J2405; J2704; J2795; J3010; J7120

== ENCOUNTER → 2023-06-06 05:57 | Outpatient (BNV) | payer BC, SELFPAY | PROVIDERS: Admitting Provider Surgery; PCP Internal Medicine; Visit Provider Surgery | DX: E66.01 Morbid (severe) obesity due to excess calories (principal); Z68.43 Body mass index [BMI] 50.0-59.9, adult; Q43.3 Congenital malformations of intestinal fixation | CPT/HCPCS: 43659; 43775; 99024 ==

== ENCOUNTER 2023-06-11 10:12 | Outpatient (AMB) | payer BC, SELFPAY ==
[2023-06-11 10:25] VITALS: BP 145/68; PULSE 65; TEMP 36.3; O2SAT 97; BMI 51.0
--- NOTE | 2023-06-11 10:25 | MHC.OFFVISWM ---
VS Expanded 06/11/23 10:25 BP 145/68 H Blood Pressure Location Rt brachial Blood Pressure Position Sitting Pulse 65 Pulse Source Pulse Oximeter Temp 97.3 F Temperature Source Tympanic Pulse Oximetry 97 Oxygen Delivery Method Room Air Height 5 ft 3 in Weight 288 lb 3.2 oz BMI 51.0 Body Fat % 46.7 Body Fat Mass 134.4 Fat Free Mass 153.6 Visceral Fat Rating 16.0 Body Water % 38.1 Body Water Mass 109.8 Muscle Mass/Score 146.0 Basal Metabolic Rate/Score 2,195 Intake Visit Reasons: (OV) PO LSG 06/06/23 Allergies Sulfa (Sulfonamide Antibiotics) [SULFA(SULFONAMIDE ANTIBIOTICS)] Allergy (Unknown, Verified 06/11/23 10:34) YEAST INFECTION, yeast infections hard shell seafood Allergy (Unknown, Uncoded 06/11/23 10:34) swelling of throat, vomiting seafood Allergy (Unknown, Uncoded 06/11/23 10:34) unknown seasonal Allergy (Unknown, Uncoded 06/11/23 10:34) unknown SHELLFISH Allergy (Unknown, Uncoded 06/11/23 10:34) RASH HPI Comments Details: Patient is a pleasant 37-year-old female who returns to the office today in follow-up. She is 5 days status post sleeve gastrectomy performed on 06/06/2023. She is tolerating 3 celebrate 4 in 1 shakes with 1 scoop each and approximately 40 oz of fluids. She has moved her bowels. She offers no significant complaints at today's visit. [facility] Medical History Obstructive sleep apnea on CPAP Hiatal hernia Anxiety Elevated cholesterol HTN (hypertension) Hyperlipidemia Ectatic thoracic aorta Migraine aura without headache Sleep apnea Asthma Surgical History (Updated 06/11/23 @ 10:35 by Eunice Holliday CMA) Hx of laparoscopic partial gastrectomy History of uvulectomy Hx of tonsillectomy Family History Paternal Grandmother Breast CA Social History Household Members: Spouse and Children Housing: House Are you a primary laboratory animal caretaker to a significant other at home: No Do you presently have visiting nurse or other home services: No Alcohol intake: current Alcohol intake frequency: a few times a month Patient Tobacco Use Status: Never used Tobacco Substance Use Type: Marijuana Sexual orientation: Straight/Heterosexual Gender identity: Female Physical Exam Vital Signs: Last Vital Signs Temp 97.3 F 06/11/23 10:25 Pulse 65 06/11/23 10:25 BP 145/68 H 06/11/23 10:25 Pulse Ox 97 06/11/23 10:25 GI Inspection: Yes incision (Mild bruising, otherwise clean, dry, intact.) Assessment & Plan Assessment & Plan (1) S/P laparoscopic sleeve gastrectomy: Code(s): Z98.84 - Bariatric surgery status Category: Surgical Plan: POD 5 s/p LSG on 06/06/[address] Pineda Weight loss prior to surgery was 42.4 pounds or 12.3 % TBWL. Original weight on 10/17/2022 was 344.6 pounds and op weight was 302.2 pounds. Be sure to text Dr Pineda exactly 1 week after surgery your weight from your home scale so he can adjust your meal plan. Continue meal plan until f/u shikha Hubbard in 2 weeks May shower, no submersion in bath for another week Continue abdominal binder with activity and exercise for the next 2 weeks. Exercise prior to surgery was treadmill and may resume No abdominal exercises for 6 weeks post operatively Will be emailed link to post op video for review Reminded of the pace of drinking, 2 mL per minute, 1 oz/15 min.
== END 2023-06-11 11:46 | disposition home or self-care (01) ==
PROVIDERS: PCP Internal Medicine; Visit Provider Physician Assistant Surgical
DX: Z98.84 Bariatric surgery status (principal)
CPT/HCPCS: 99024

== ENCOUNTER → 2023-06-11 10:12 | Outpatient (BNVA) | payer BC, SELFPAY | PROVIDERS: PCP Internal Medicine; Visit Provider Physician Assistant Surgical ==

== ENCOUNTER 2023-06-24 12:03 | Outpatient (AMB) | payer BC, SELFPAY ==
--- NOTE | 2023-06-24 12:05 | MHC.OFFVISWM ---
VS Expanded 06/24/23 12:13 BP 112/56 L Blood Pressure Location Rt brachial Blood Pressure Position Sitting Pulse 92 Pulse Source Pulse Oximeter Temp 97.1 F Temperature Source Tympanic Pulse Oximetry 94 Oxygen Delivery Method Room Air Height 5 ft 3 in Weight 276 lb 12.8 oz BMI 49.0 Body Fat % 47.8 Body Fat Mass 132.2 Fat Free Mass 144.4 Visceral Fat Rating 16.0 Body Water % 37.4 Body Water Mass 103.4 Muscle Mass/Score 137.2 Basal Metabolic Rate/Score 2,068 Intake Visit Reasons: (OV) PO LSG 06/06/23 Allergies Sulfa (Sulfonamide Antibiotics) [SULFA(SULFONAMIDE ANTIBIOTICS)] Allergy (Unknown, Verified 06/24/23 12:18) YEAST INFECTION, yeast infections hard shell seafood Allergy (Unknown, Uncoded 06/24/23 12:18) swelling of throat, vomiting seafood Allergy (Unknown, Uncoded 06/24/23 12:18) unknown seasonal Allergy (Unknown, Uncoded 06/24/23 12:18) unknown SHELLFISH Allergy (Unknown, Uncoded 06/24/23 12:18) RASH HPI Comments Details: This?a?37?yo female who is s/p LSG without hiatal hernia repair on?06/06/2023. Presents for 3 week post op visit. Weight today is 276.8 pounds, with a BMI of 49. There has been a 67.8 pound weight loss,(initial weight 344.6 pounds) since starting the program on 10/17/2022 reflecting a 19.6 % total body weight loss and a weight loss of 25.4 pounds since surgery (operative weight 302.2 pounds) reflecting a 8.4 % TBWL since surgery. No complaints of nausea, emesis, abdominal pain or reflux. Reports infrequent but normal bowel movements every [] days and uses stool softeners regularly. She states that over the last week, with the addition of the pure protein shake and several pure protein bars she feels bloated, specifically after the pure protein bars which she is eating over 3 hour each wakes at 630 am bed at 11 pm Present meal plan includes: celebrate 4 in 1 2 scoops w 8 oz almond milk 8-10 another shake 11-1 pure protein shake 1/2 scoop 2-4 pure protein bar 5-8 pm drinking 12 oz water Exercise routine includes: treadmill 3 x per week, 100 calories per session at the beginning about 2 weeks ago, now closer to 300 calories burned per session. [facility] Medical History (Updated 06/15/23 @ 00:01 by Background Daemon) Pre-op evaluation Upper respiratory tract infection Obstructive sleep apnea on CPAP Hiatal hernia Anxiety Elevated cholesterol HTN (hypertension) Hyperlipidemia Ectatic thoracic aorta Migraine aura without headache Asthma Surgical History (Updated 06/15/23 @ 00:01 by Background Daemon) Hx of laparoscopic partial gastrectomy History of uvulectomy Hx of tonsillectomy Family History Paternal Grandmother Breast CA Social History Household Members: Spouse and Children Housing: House Are you a primary tree care foreman to a significant other at home: No Do you presently have visiting nurse or other home services: No Alcohol intake: current Alcohol intake frequency: a few times a month Patient Tobacco Use Status: Never used Tobacco Substance Use Type: Marijuana Sexual orientation: Straight/Heterosexual Gender identity: Female Assessment & Plan Assessment & Plan (1) S/P laparoscopic sleeve gastrectomy: Code(s): Z98.84 - Bariatric surgery status Category: Surgical Plan: Overall doing well. Adjust meal plan to allow for gym mid morning celebrate 4 in 1 2 scoops w 8 oz almond milk 8-10 pure protein bar 11-2 another shake 3-5 pure protein shake 1/2 scoop 6-8 Increase water intake to 50-60 oz fluids daily increase gym to daily with goal of 300 calories burned rtc 4 weeks
[2023-06-24 12:13] VITALS: BP 112/56; PULSE 92; TEMP 36.2; O2SAT 94; BMI 49.0
== END 2023-06-24 12:41 | disposition home or self-care (01) ==
PROVIDERS: PCP Internal Medicine; Visit Provider Physician Assistant Surgical
DX: Z98.84 Bariatric surgery status (principal)
CPT/HCPCS: 99024

== ENCOUNTER → 2023-06-24 12:03 | Outpatient (BNVA) | payer BC, SELFPAY | PROVIDERS: PCP Internal Medicine; Visit Provider Physician Assistant Surgical ==

== ENCOUNTER 2023-08-12 14:13 | Outpatient (AMB) | payer BC, SELFPAY ==
--- NOTE | 2023-08-12 12:35 | A.OFFVIS_ITS ---
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 [employer] Tender Required: No Allergies Sulfa (Sulfonamide Antibiotics) [SULFA(SULFONAMIDE ANTIBIOTICS)] Allergy (Un known, Verified 06/24/23 12:18) YEAST INFECTION, yeast infections hard shell seafood Allergy (Unknown, Uncoded 06/24/23 12:18) swelling of throat, vomiting seafood Allergy (Unknown, Uncoded 06/24/23 12:18) unknown seasonal Allergy (Unknown, Uncoded 06/24/23 12:18) unknown SHELLFISH Allergy (Unknown, Uncoded 06/24/23 12:18) RASH Medication List - Last Reconciled 08/12/23 by MONICA Anderson albuterol sulfate 90 mcg/actuation 2 puffs inhalation Q6H PRN losartan 25 mg PO DAILY ondansetron 4 mg PO Q12H pantoprazole 40 mg PO DAILY sucralfate 10 mL PO BID venlafaxine ER 150 mg PO DAILY HPI Comments Details: This?a?37?yo female who is s/p LSG without hiatal hernia repair on?06/06/2023. Presents for 2 month post op visit. Weight today is 250 pounds, with a BMI of 44.3. There has been a 94.6 pound weight loss,(initial weight 344.6 pounds) since starting the program on 10/17/2022 reflecting a 27.4 % total body weight loss and a weight loss of 52.2 pounds since surgery (operative weight 302.2 pounds) reflecting a 17.2 % TBWL since surgery. No complaints of nausea, emesis, abdominal pain or reflux. Reports infrequent but normal bowel movements every 1-2 days and uses stool softeners regularly. She states that she is having trouble given her busy schedule for the 3 shakes and protein bar. Dx today w strep throat and Covid so she changed her appointment to virtual. wakes at 630 am bed at 11 pm Present meal plan includes: celebrate 4 in 1 2 scoops w 8 oz almond milk 8-10 another shake 12-2 pure protein shake 1/2 scoop or pure protein bar 6-8 drinking 48-64 oz water Exercise routine includes: treadmill 4 x per week, speed 2.5, incline 0-8, 200-250 calories stationary bike 3.5 miles, 50 calories PFSH Medical History (Updated 06/15/23 @ 00:01 by Background Daemon) Pre-op evaluation Upper respiratory tract infection Obstructive sleep apnea on CPAP Hiatal hernia Anxiety Elevated cholesterol HTN (hypertension) Hyperlipidemia Ectatic thoracic aorta Migraine aura without headache Asthma Surgical History (Updated 06/15/23 @ 00:01 by Background Daemon) Hx of laparoscopic partial gastrectomy History of uvulectomy Hx of tonsillectomy Family History Paternal Grandmother Breast CA Social History Household Members: Spouse and Children Housing: House Are you a primary child care sitter to a significant other at home: No Do you presently have visiting nurse or other home services: No Alcohol intake: current Alcohol intake frequency: a few times a month Patient Tobacco Use Status: Never used Tobacco Substance Use Type: Marijuana Sexual orientation: Straight/Heterosexual Gender identity: Female Telehealth Telehealth Telehealth Platform: Telephone Location of provider rendering services: practice address Location of patient: address on file Patient Identification confirmed using: Name, : Yes Telehealth method: voice only Patient verbally consented to treatment: Yes Patient verbally consented to billing insurance company: Yes Patient informed of any privacy concerns related to visit: Yes Minutes spent on Phone/Video with Pt.: 15 Assessment & Plan Assessment & Plan (1) S/P laparoscopic sleeve gastrectomy: Code(s): Z98.84 - Bariatric surgery status Category: Surgical Plan: Recommend following meal plan exactly with 2 celebrate 4 in 1 shakes and 1 pure protein shake with half scoop as well as 1 pure protein bar. Recommend increasing exercise to 5 days per week, 400 calories per day. Recommend sending weights weekly. Return to clinic 1 month.
[2023-08-12 12:43] VITALS: BMI 44.3
== END 2023-08-12 14:14 | disposition home or self-care (01) ==
LOC: HO.HBS 14:13
PROVIDERS: PCP Internal Medicine; Visit Provider Physician Assistant Surgical
DX: Z98.84 Bariatric surgery status (principal)
CPT/HCPCS: 99024

== ENCOUNTER → 2023-08-12 14:13 | Outpatient (BNVA) | payer BC, SELFPAY | PROVIDERS: PCP Internal Medicine; Visit Provider Physician Assistant Surgical ==

== ENCOUNTER 2023-09-12 11:22 | Outpatient (AMB) | payer BC, SELFPAY ==
--- NOTE | 2023-09-12 09:17 | A.OFFVIS_ITS ---
VS Expanded 09/12/23 09:18 09/12/23 11:31 BP 121/65 Blood Pressure Location Rt brachial Blood Pressure Position Sitting Pulse 83 Pulse Source Pulse Oximeter Temp 96.3 F L Temperature Source Temporal Artery Scan Pulse Oximetry 93 Oxygen Delivery Method Room Air Height 5 ft 3 in Weight 236 lb 8 oz BMI 41.9 Body Fat % 52.7 Body Fat Mass 124.7 Fat Free Mass 112 Visceral Fat Rating 16. Body Water % 37 Body Water Mass 87.6 Muscle Mass/Score 104.9 Intake Visit Reasons: (TV) PO LSG 06/06/23 Allergies Sulfa (Sulfonamide Antibiotics) [SULFA(SULFONAMIDE ANTIBIOTICS)] Allergy (Unknown, Verified 09/12/23 11:31) YEAST INFECTION, yeast infections hard shell seafood Allergy (Unknown, Uncoded 09/12/23 11:31) swelling of throat, vomiting seafood Allergy (Unknown, Uncoded 09/12/23 11:31) unknown seasonal Allergy (Unknown, Uncoded 09/12/23 11:31) unknown SHELLFISH Allergy (Unknown, Uncoded 09/12/23 11:31) RASH HPI Comments Details: This?a?37?yo female who is s/p LSG without hiatal hernia repair on?06/06/2023. Presents for 3 month post op visit. Weight today is 236.8 pounds, with a BMI of 41.9. There has been a 107.8 pound weight loss,(initial weight 344.6 pounds) since starting the program on 10/17/2022 reflecting a 31.2 % total body weight loss and a weight loss of 65.4 pounds since surgery (operative weight 302.2 pounds) reflecting a 21.6 % TBWL since surgery. No complaints of nausea, emesis, abdominal pain or reflux. Reports infrequent but normal bowel movements every 1-2 days and uses stool softeners regularly. She states that she had a meal plan change by Dr Faustin last week. Skipping the last shake wakes at 630 am bed at 11 pm Present meal plan includes: pure protein shake 1/2 scoop or pure protein bar 9-11, 3-5, 8-10 pure protein bar 12-2 meal 5 forks/ 5 forks drinking 64 oz water Exercise routine includes: no gym in 3 weeks walking in the pool [facility] Medical History (Updated 06/15/23 @ 00:01 by Background Daemon) Pre-op evaluation Upper respiratory tract infection Obstructive sleep apnea on CPAP Hiatal hernia Anxiety Elevated cholesterol HTN (hypertension) Hyperlipidemia Ectatic thoracic aorta Migraine aura without headache Asthma Surgical History (Updated 06/15/23 @ 00:01 by Background Daemon) Hx of laparoscopic partial gastrectomy History of uvulectomy Hx of tonsillectomy Family History Paternal Grandmother Breast CA Social History Household Members: Spouse and Children Housing: House Are you a primary child care worker to a significant other at home: No Do you presently have visiting nurse or other home services: No Alcohol intake: current Alcohol intake frequency: a few times a month Patient Tobacco Use Status: Never used Tobacco Substance Use Type: Marijuana Sexual orientation: Straight/Heterosexual Gender identity: Female Physical Exam Vital Signs: BMI result Body Mass Index 41.9 Const General: healthy appearing and no acute distress Resp Effort & Inspection: normal respiratory effort Auscultation: clear to auscultation bilaterally Cardio Rate: regular rate Rhythm: regular rhythm GI Auscultation: normal bowel sounds Extrem General: Yes normal to inspection Assessment & Plan Assessment & Plan (1) S/P laparoscopic sleeve gastrectomy: Code(s): Z98.84 - Bariatric surgery status Category: Surgical Plan: Patient will continue the meal plan as recommended. Additionally, discussed the importance of going to the gym. She states that she can only go to the gym 3 days per week. Encouraged her to burn at least 400 calories per day on those days and to walk in the pool and do home videos on the other days. Ultimate goal is 2000 calories per week. We will have her return to the office in approximately 4 weeks
[2023-09-12 09:18] VITALS: BMI 41.9
[2023-09-12 11:31] VITALS: BP 121/65; PULSE 83; TEMP 35.7; O2SAT 93
== END 2023-09-12 12:24 | disposition home or self-care (01) ==
PROVIDERS: PCP Internal Medicine; Visit Provider Physician Assistant Surgical
DX: E66.01 Morbid (severe) obesity due to excess calories (principal); Z68.41 Body mass index [BMI] 40.0-44.9, adult; Z90.3 Acquired absence of stomach [part of]; Z98.84 Bariatric surgery status
CPT/HCPCS: 99213

== ENCOUNTER → 2023-09-12 11:22 | Outpatient (BNVA) | payer BC, SELFPAY | PROVIDERS: PCP Internal Medicine; Visit Provider Physician Assistant Surgical ==

== ENCOUNTER 2023-10-17 11:45 | Outpatient (AMB) | payer BC, SELFPAY ==
[2023-10-17 09:33] VITALS: BMI 40.1
--- NOTE | 2023-10-17 09:33 | A.OFFVIS_ITS ---
VS Expanded 10/17/23 09:33 Height 5 ft 3 in Weight 226 lb 2 oz BMI 40.1 Body Fat % 51.5 Body Fat Mass 116.4 Fat Free Mass 109.8 Visceral Fat Rating 15.2 Body Water % 37.7 Body Water Mass 85.2 Muscle Mass/Score 102.7 Basal Metabolic Rate/Score 1,648 Intake Visit Reasons: (tV) PO LSG 06/06/23 Allergies Sulfa (Sulfonamide Antibiotics) [SULFA(SULFONAMIDE ANTIBIOTICS)] Allergy (Unknown, Verified 09/12/23 11:31) YEAST INFECTION, yeast infections hard shell seafood Allergy (Unknown, Uncoded 09/12/23 11:31) swelling of throat, vomiting seafood Allergy (Unknown, Uncoded 09/12/23 11:31) unknown seasonal Allergy (Unknown, Uncoded 09/12/23 11:31) unknown SHELLFISH Allergy (Unknown, Uncoded 09/12/23 11:31) RASH Medication List - Last Reconciled 10/17/23 by MONICA Anderson albuterol sulfate 90 mcg/actuation 2 puffs inhalation Q6H PRN losartan 25 mg PO DAILY venlafaxine ER 150 mg PO DAILY HPI Comments Details: This?a?37?yo female who is s/p LSG without hiatal hernia repair on?06/06/2023. Presents for 4 month post op visit. Weight today is 226.2 pounds, with a BMI of 40.1. There has been a 118.4 pound weight loss,(initial weight 344.6 pounds) since starting the program on 10/17/2022 reflecting a 34.3 % total body weight loss and a weight loss of 76 pounds since surgery (operative weight 302.2 pounds) reflecting a 25.1 % TBWL since surgery. No complaints of nausea, emesis, abdominal pain or reflux. Reports infrequent but normal bowel movements every 1-2 days and uses stool softeners regularly. Now back at school and taking bariatric mvi daily She states that she had a meal plan change by Dr Faustin last week. Continues 1/2 tab losartan daily given SBP 120-130 wakes at 630 am bed at 11 pm Present meal plan includes: pure protein shake 1/2 scoop 9-11, 3-5, pure protein bar 12-2 meal 4 forks/ 4 forks drinking 64 oz water Exercise routine includes: walking outside 2 days per week, not tracking calories gym 2-3 x per week - treadmill 250-300 calories PFSH Medical History (Updated 06/15/23 @ 00:01 by Background Daemon) Pre-op evaluation Upper respiratory tract infection Obstructive sleep apnea on CPAP Hiatal hernia Anxiety Elevated cholesterol HTN (hypertension) Hyperlipidemia Ectatic thoracic aorta Migraine aura without headache Asthma Surgical History (Updated 06/15/23 @ 00:01 by Background Daemon) Hx of laparoscopic partial gastrectomy History of uvulectomy Hx of tonsillectomy Family History Paternal Grandmother Breast CA Social History Household Members: Spouse and Children Housing: House Are you a primary pharmacy customer care specialist to a significant other at home: No Do you presently have visiting nurse or other home services: No Alcohol intake: current Alcohol intake frequency: a few times a month Patient Tobacco Use Status: Never used Tobacco Substance Use Type: Marijuana Sexual orientation: Straight/Heterosexual Gender identity: Female Telehealth Telehealth Telehealth Platform: Telephone Location of provider rendering services: practice address Location of patient: address on file Patient Identification confirmed using: Name, : Yes Telehealth method: voice only Patient verbally consented to treatment: Yes Patient verbally consented to billing insurance company: Yes Patient informed of any privacy concerns related to visit: Yes Minutes spent on Phone/Video with Pt.: 20 Assessment & Plan Assessment & Plan (1) S/P laparoscopic sleeve gastrectomy: Code(s): Z98.84 - Bariatric surgery status Category: Surgical Plan: Overall doing well. Would suggest increasing exercise by 1 day which she states that she will be able to do on the weekends. She will continue her current meal plan. She did ask about fruit and may have half a cup after dinner (berries, apple, pear, kiwi, orange. She will continue to text weekly. Follow-up in approximately 3 weeks.
== END 2023-10-17 11:46 | disposition home or self-care (01) ==
LOC: HO.HBS 11:45
PROVIDERS: PCP Internal Medicine; Visit Provider Physician Assistant Surgical
DX: E66.01 Morbid (severe) obesity due to excess calories (principal); Z68.41 Body mass index [BMI] 40.0-44.9, adult; Z90.3 Acquired absence of stomach [part of]; Z98.84 Bariatric surgery status
CPT/HCPCS: 98967

== ENCOUNTER → 2023-10-17 11:45 | Outpatient (BNVA) | payer BC, SELFPAY | PROVIDERS: PCP Internal Medicine; Visit Provider Physician Assistant Surgical ==

== ENCOUNTER 2023-12-09 14:18 | Outpatient (AMB) | payer BC, SELFPAY ==
--- NOTE | 2023-12-09 14:23 | MHC.OFFVISWM ---
VS Expanded 12/09/23 14:32 BP 120/65 Blood Pressure Location Rt brachial Blood Pressure Position Sitting Pulse 77 Pulse Source Pulse Oximeter Temp 98.2 F Temperature Source Temporal Artery Scan Pulse Oximetry 99 Oxygen Delivery Method Room Air Height 5 ft 3 in Weight 208 lb 9.6 oz BMI 36.9 Body Fat % 37.5 Body Fat Mass 78.2 Fat Free Mass 130.2 Visceral Fat Rating 9.0 Body Water % 44.6 Body Water Mass 93.0 Muscle Mass/Score 123.6 Basal Metabolic Rate/Score 2,937 Intake Visit Reasons: (OV) PO LSG 06/06/23 [address] Registry Officer Required: No Allergies Sulfa (Sulfonamide Antibiotics) [SULFA(SULFONAMIDE ANTIBIOTICS)] Allergy (Unknown, Verified 12/09/23 14:29) YEAST INFECTION, yeast infections hard shell seafood Allergy (Unknown, Uncoded 09/12/23 11:31) swelling of throat, vomiting seafood Allergy (Unknown, Uncoded 09/12/23 11:31) unknown seasonal Allergy (Unknown, Uncoded 09/12/23 11:31) unknown SHELLFISH Allergy (Unknown, Uncoded 09/12/23 11:31) RASH Medication List - Last Reconciled 12/09/23 by MONICA Anderson albuterol sulfate 90 mcg/actuation 2 puffs inhalation Q6H PRN biotin (Hair, Skin and Nails (biotin)) mcg PO losartan 25 mg PO DAILY venlafaxine ER 150 mg PO DAILY HPI Comments Details: This?a?37?yo female who is s/p LSG without hiatal hernia repair on?06/06/2023. Presents for 6 month post op visit. Weight today is 208.6 pounds, with a BMI of 37. There has been a 136 pound weight loss,(initial weight 344.6 pounds) since starting the program on 10/17/2022 reflecting a 39.4 % total body weight loss and a weight loss of 93.6 pounds since surgery (operative weight 302.2 pounds) reflecting a 30.9 % TBWL since surgery. No complaints of nausea, emesis, abdominal pain or reflux. Reports infrequent but normal bowel movements every 1-2 days and uses stool softeners regularly. Now back at school and taking bariatric mvi daily She states that she had a meal plan change by Dr R last week. Continues 1/2 tab losartan daily given SBP 120-130 wakes at 630 am bed at 11 pm Present meal plan includes: pure protein shake 1/2 scoop 9-11, 3-5, pure protein bar 12-2 meal 4 forks/ 4 forks drinking 30 oz water Exercise routine includes: none in a month bought a treadmill for her home about 2 months ago walking outside 2 days per week, not tracking calories gym 2-3 x per week - treadmill 250-300 calories Any post op complications: none ITALIA: improved DM: never HTN: improved Hyperlipidemia: never GERD:?0-5 scale ??0 = no symptoms ??1 = symptoms noticeable but not bothersome 2 =symptoms bothersome but not daily ? 3 = symptoms bothersome and daily 4 = symptoms affect daily activities 5 = symptoms are incapacitating, unable to do daily activities ? How bad is the heartburn: 0 ? Heartburn while lying down: 0 ? Heartburn when standing up: 0 ? Heartburn after meals: 0 ? Does heartburn change your diet: 0 ? Does heartburn wake you up from sleep: 0 ? Do you have difficulty swallowin ? Do you have pain with swallowin ? If you take medicine for your reflux, does this affect your daily life: 0 Satisfaction with present condition - satisfied or not satisfied: satisfied [facility] Medical History Pre-op evaluation Upper respiratory tract infection Obstructive sleep apnea on CPAP Hiatal hernia Anxiety Elevated cholesterol HTN (hypertension) Hyperlipidemia Ectatic thoracic aorta Migraine aura without headache Asthma Surgical History Hx of laparoscopic partial gastrectomy History of uvulectomy Hx of tonsillectomy Family History Paternal Grandmother Breast CA Social History Household Members: Spouse and Children Housing: House Are you a primary healthcare representative to a significant other at home: No Do you presently have visiting nurse or other home services: No Alcohol intake: current Alcohol intake frequency: a few times a month Patient Tobacco Use Status: Never used Tobacco Substance Use Type: Marijuana Sexual orientation: Straight/Heterosexual Gender identity: Female Physical Exam Vital Signs: Last Vital Signs Temp 98.2 F 12/09/23 14:32 Pulse 77 12/09/23 14:32 BP 120/65 12/09/23 14:32 Pulse Ox 99 12/09/23 14:32 Oxygen Delivery Method Room Air 12/09/23 14:32 BMI result Body Mass Index 36.9 Const General: cooperative and no acute distress Orientation/consciousness: patient oriented x3 Resp Effort & Inspection: normal respiratory effort Auscultation: clear to auscultation bilaterally Cardio Rate: regular rate Rhythm: regular rhythm GI Inspection: Yes normal to inspection Palpation (GI): Soft to palpation and no masses Neuro General: patient oriented x3 Assessment & Plan Assessment & Plan (1) S/P laparoscopic sleeve gastrectomy: Code(s): Z98.84 - Bariatric surgery status Category: Surgical Plan: Check six-month postop labs. Discussed the importance of exercise as it relates to her continued weight loss. She will continue her current meal plan and return to using her treadmill which she has at home. We will keep her follow-up appointment as previously scheduled. Encouraged to text weights weekly and with any questions or concerns. Orders: Orders Insulin Today E53.8 - Deficiency of other specified B group vitamins, E78.5 - Hyperlipidemia, unspecified, I10 - Essential (primary) hypertension, K74.00 - Hepatic fibrosis, unspecified, Z98.84 - Bariatric surgery status Complete Blood Count Auto Diff Today E53.8 - Deficiency of other specified B group vitamins, E78.5 - Hyperlipidemia, unspecified, I10 - Essential (primary) hypertension, K74.00 - Hepatic fibrosis, unspecified, Z98.84 - Bariatric surgery status Lipid Panel Today E53.8 - Deficiency of other specified B group vitamins, E78.5 - Hyperlipidemia, unspecified, I10 - Essential (primary) hypertension, K74.00 - Hepatic fibrosis, unspecified, Z98.84 - Bariatric surgery status IRON PROFILE Today E53.8 - Deficiency of other specified B group vitamins, E78.5 - Hyperlipidemia, unspecified, I10 - Essential (primary) hypertension, K74.00 - Hepatic fibrosis, unspecified, Z98.84 - Bariatric surgery status Vitamin B12 and Folate Today E53.8 - Deficiency of other specified B group vitamins, E78.5 - Hyperlipidemia, unspecified, I10 - Essential (primary) hypertension, K74.00 - Hepatic fibrosis, unspecified, Z98.84 - Bariatric surgery status Zinc Today E53.8 - Deficiency of other specified B group vitamins, E78.5 - Hyperlipidemia, unspecified, I10 - Essential (primary) hypertension, K74.00 - Hepatic fibrosis, unspecified, Z98.84 - Bariatric surgery status C Reactive Protein Today E53.8 - Deficiency of other specified B group vitamins, E78.5 - Hyperlipidemia, unspecified, I10 - Essential (primary) hypertension, K74.00 - Hepatic fibrosis, unspecified, Z98.84 - Bariatric surgery status Vitamin B1 Today E53.8 - Deficiency of other specified B group vitamins, E78.5 - Hyperlipidemia, unspecified, I10 - Essential (primary) hypertension, K74.00 - Hepatic fibrosis, unspecified, Z98.84 - Bariatric surgery status Vitamin A Today E53.8 - Deficiency of other specified B group vitamins, E78.5 - Hyperlipidemia, unspecified, I10 - Essential (primary) hypertension, K74.00 - Hepatic fibrosis, unspecified, Z98.84 - Bariatric surgery status Basic Metabolic Panel Today E53.8 - Deficiency of other specified B group vitamins, E78.5 - Hyperlipidemia, unspecified, I10 - Essential (primary) hypertension, K74.00 - Hepatic fibrosis, unspecified, Z98.84 - Bariatric surgery status Hemoglobin A1c Today E53.8 - Deficiency of other specified B group vitamins, E78.5 - Hyperlipidemia, unspecified, I10 - Essential (primary) hypertension, K74.00 - Hepatic fibrosis, unspecified, Z98.84 - Bariatric surgery status TSH reflex Free T4 Today E53.8 - Deficiency of other specified B group vitamins, E78.5 - Hyperlipidemia, unspecified, I10 - Essential (primary) hypertension, K74.00 - Hepatic fibrosis, unspecified, Z98.84 - Bariatric surgery status Ferritin Today E53.8 - Deficiency of other specified B group vitamins, E78.5 - Hyperlipidemia, unspecified, I10 - Essential (primary) hypertension, K74.00 - Hepatic fibrosis, unspecified, Z98.84 - Bariatric surgery status Vitamin D 25-OH Total Today E53.8 - Deficiency of other specified B group vitamins, E78.5 - Hyperlipidemia, unspecified, I10 - Essential (primary) hypertension, K74.00 - Hepatic fibrosis, unspecified, Z98.84 - Bariatric surgery status
[2023-12-09 14:32] VITALS: BP 120/65; PULSE 77; TEMP 36.8; O2SAT 99; BMI 36.9
== END 2023-12-09 14:58 | disposition home or self-care (01) ==
LOC: HO.HBS 14:19
PROVIDERS: PCP Internal Medicine; Visit Provider Physician Assistant Surgical
DX: E66.812 Obesity, class 2 (principal); Z68.36 Body mass index [BMI] 36.0-36.9, adult; Z90.3 Acquired absence of stomach [part of]; Z98.84 Bariatric surgery status
CPT/HCPCS: 99214

== ENCOUNTER → 2023-12-09 14:18 | Outpatient (BNVA) | payer BC, SELFPAY | PROVIDERS: PCP Internal Medicine; Visit Provider Physician Assistant Surgical ==

== ENCOUNTER 2024-02-25 08:10 | Outpatient (REF) | payer BC, SELFPAY ==
[2024-02-25 08:43] LABS: MANUAL DIFF FLAG NO
[2024-02-25 08:59] LABS: Basophils Absolute Auto 0.1 X10*3/uL (0.0-0.2); Basophils Percent Auto 0.7 % (0-2); Eosinophils Absolute Auto 0.2 X10*3/uL (0.0-0.4); Eosinophils Percent Auto 2.4 % (0-4); Hematocrit 36.5 % (37.0-47.0); Hemoglobin 12.2 g/dl (12.0-16.0); Imm Gran Abs Auto 0.02 X10*3/uL (0.00-0.03); Imm Gran Pct Auto 0.3 % (0.0-0.4); Lymphocytes Percent Auto 28.4 % (20-40); Mean Corpuscular HGB Conc 33.4 g/dl (31.0-35.0); Mean Corpuscular Volume 89.7 fL (80.0-98.0); Mean Platelet Volume 9.8 fL (9.4-12.3); Monocytes Absolute Auto 0.4 X10*3/uL (0.1-1.2); Monocytes Percent Auto 5.8 % (2-11); Neutrophils Absolute Auto 4.5 x10*3/uL (2.0-8.3); Neutrophils Percent Auto 62.4 % (45-73); Platelet Count 279 X10*3/uL (160-400); Red Blood Count 4.07 X10*6/uL (4.20-5.50); Red Cell Distribution Width 12.7 % (11.0-16.0); White Blood Count 7.2 X10*3/uL (4.8-10.8)
[2024-02-25 09:22] LABS: Estimated Average Glucose 100 mg/dL; Hemoglobin A1C 99.3727 umol/L; Hemoglobin A1c % 5.1 % (<6.0); Total Hemoglobin (HGBA1C) 3136.0639 umol/L
[2024-02-25 09:42] LABS: Anion Gap 9 (12-20); Blood Urea Nitrogen 18 mg/dL (9-16); C Reactive Protein 0.16 mg/dL (< or = 0.50); Calcium 8.7 mg/dL (8.4-10.2); Carbon Dioxide 28 mmol/L (22-29); Chloride 109 mmol/L (96-108); Cholesterol 150 mg/dL (<200); Estimated Glomerular Filt Rate > 60; Glucose Random 73 mg/dL (60-115); HDL Cholesterol 44 mg/dL (>40); Iron 100 mcg/dL (30-160); LDL Cholesterol Calculated 94 mg/dL (<100); Percent Iron Saturation 39 % (15-50); Potassium 3.8 mmol/L (3.3-5.1); Sodium 142 mmol/L (135-145); Total Iron Binding Capacity 259 mcg/dL (228-428); Triglycerides 62 mg/dL (<150); Unsaturated Iron Binding 159 ug/dL
[2024-02-25 09:52] LABS: Ferritin 54 ng/mL (10-250); TSH reflex Free T4 0.14 uIU/mL (0.32-4.0); Vitamin D 25-OH Total 43.2 ng/mL (>30)
[2024-02-25 10:01] LABS: Folate 9.3 ng/mL (> or = 4.0); Vitamin B12 442 pg/mL (200-900)
[2024-02-25 10:52] LABS: Free T4 (Free Thyroxine) 0.97 ng/dL (0.71-1.85); Insulin 5 uU/mL (2-29)
[2024-02-29 00:59] LABS: Vitamin A 41 mcg/dL (38-98)
[2024-02-29 14:48] LABS: Zinc 59 mcg/dL (60-130)
[2024-03-02 13:33] LABS: Vitamin B1 19 nmol/L (8-30)
== END 2024-02-25 08:11 | disposition home or self-care (01) ==
LOC: HO.LAB 08:10
PROVIDERS: PCP Internal Medicine; Visit Provider Physician Assistant Surgical
DX: Z98.84 Bariatric surgery status (principal); K74.00 Hepatic fibrosis, unspecified; E53.8 Deficiency of other specified B group vitamins; I10 Essential (primary) hypertension; E78.5 Hyperlipidemia, unspecified; Z13.1 Encounter for screening for diabetes mellitus
CPT/HCPCS: 36415; 80048; 80061; 82306; 82607; 82728; 82746; 83036; 83525; 83540; 84425; 84439; 84443; 84590; 84630; 85025; 86140

== ENCOUNTER 2024-03-06 14:30 | Outpatient (AMB) | payer BC, SELFPAY ==
--- NOTE | 2024-03-06 13:28 | MHC.OFFVISWM ---
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 Allergies Sulfa (Sulfonamide Antibiotics) [SULFA(SULFONAMIDE ANTIBIOTICS)] Allergy (Unknown, Verified 12/09/23 14:29) YEAST INFECTION, yeast infections hard shell seafood Allergy (Unknown, Uncoded 09/12/23 11:31) swelling of throat, vomiting seafood Allergy (Unknown, Uncoded 09/12/23 11:31) unknown seasonal Allergy (Unknown, Uncoded 09/12/23 11:31) unknown SHELLFISH Allergy (Unknown, Uncoded 09/12/23 11:31) RASH Medication List - Last Reconciled 03/06/24 by MONICA Anderson albuterol sulfate 90 mcg/actuation 2 puffs inhalation Q6H PRN biotin (Hair, Skin and Nails (biotin)) mcg PO losartan 25 mg PO DAILY venlafaxine ER 150 mg PO DAILY HPI Comments Details: This?a?38?yo female who is s/p LSG without hiatal hernia repair on?06/06/2023. Presents for 9 month post op visit. Weight today is 193.2 pounds, with a BMI of 34.2. There has been a 151.4 pound weight loss,(initial weight 344.6 pounds) since starting the program on 10/17/2022 reflecting a 43.9 % total body weight loss and a weight loss of 109 pounds since surgery (operative weight 302.2 pounds) reflecting a 36 % TBWL since surgery. No complaints of nausea, emesis, abdominal pain or reflux. Reports infrequent but normal bowel movements every 3 days and uses stool softeners regularly. Now back at school and taking bariatric mvi daily. Spoke w PCP who is going to recheck TSH levels. She states that she is doing well. Continues 1/2 tab losartan daily given SBP 120-130 wakes at 630 am bed at 11 pm Present meal plan includes: pure protein shake 1/2 scoop 9-11, 3-5, pure protein bar 12-2 meal 4 forks/ 4 forks 1/2 c fruit: berries/pear/apple drinking 30 oz water Exercise routine includes: none in a month - exhausted - stressed, talking w BH bought a treadmill for her home about 2 months ago PFSH Medical History Pre-op evaluation Upper respiratory tract infection Obstructive sleep apnea on CPAP Hiatal hernia Anxiety Elevated cholesterol HTN (hypertension) Hyperlipidemia Ectatic thoracic aorta Migraine aura without headache Asthma Surgical History Hx of laparoscopic partial gastrectomy History of uvulectomy Hx of tonsillectomy Family History Paternal Grandmother Breast CA Social History Household Members: Spouse and Children Housing: House Are you a primary after school caregiver to a significant other at home: No Do you presently have visiting nurse or other home services: No Alcohol intake: current Alcohol intake frequency: a few times a month Patient Tobacco Use Status: Never used Tobacco Substance Use Type: Marijuana Sexual orientation: Straight/Heterosexual Gender identity: Female Telehealth Telehealth Telehealth Platform: Telephone Location of provider rendering services: practice address Location of patient: other Patient Identification confirmed using: Name, : Yes Telehealth method: voice only Patient verbally consented to treatment: Yes Patient verbally consented to billing insurance company: Yes Patient informed of any privacy concerns related to visit: Yes Minutes spent on Phone/Video with Pt.: 15 Assessment & Plan Assessment & Plan (1) S/P laparoscopic sleeve gastrectomy: Code(s): Z98.84 - Bariatric surgery status Category: Medical Plan: Discussed the importance of exercise. She will resume. She does have a treadmill at home. Discussed the importance of continuing the meal plan which she has been doing. I did encourage her to increase her fluid intake. She inquired about a new medication that may be started by her oil rig driller for HIV prevention and this can affect her kidney function. I discussed with her her water intake and how that directly effects her kidney function. She will increase her water intake and consider the new medication with her oil rig driller. Regarding her low TSH, she will follow-up with her primary care physician who is going to recheck it in 1 month.
[2024-03-06 13:29] VITALS: BMI 34.2
== END 2024-03-06 15:06 | disposition home or self-care (01) ==
LOC: HO.HBS 15:06
PROVIDERS: PCP Internal Medicine; Visit Provider Physician Assistant Surgical
DX: E66.811 Obesity, class 1 (principal); Z68.34 Body mass index [BMI] 34.0-34.9, adult; Z90.3 Acquired absence of stomach [part of]; Z98.84 Bariatric surgery status
CPT/HCPCS: 98967

== ENCOUNTER 2024-04-10 09:08 | Outpatient (REF) | payer BC, SELFPAY ==
--- NOTE | ~2024-04-10 | MM_ITS ---
EXAMINATION: MM SCREENING DIGITAL BREAST TOMOSYNTHESIS, BILATERAL CLINICAL INFORMATION: Screening. Asymptomatic. COMPARISON: Mammography: Baseline. TECHNIQUE: Digital breast mammography with tomosynthesis is performed in both the craniocaudal and mediolateral oblique views along with computer-aided detection (CAD). FINDINGS: There are scattered areas of fibroglandular density (ACR BI-RADS breast composition Category b). There are no significant masses, abnormal calcifications, or other abnormalities. MM/MM tomosynthesis screening BI IMPRESSION: No mammographic evidence of malignancy. ASSESSMENT: BI-RADS BI-RADS 1 - Negative RECOMMENDATION: Routine annual mammography screening. 1 year F/U This examination should not preclude the clinical evaluation of a suspicious palpable abnormality. This patient's information was entered into a reminder system with a target due date for their next mammogram. Electronically signed by: Kimberly Bai DO 04/13/2024 05:00 PM NAT
== END 2024-04-10 09:09 | disposition home or self-care (01) ==
LOC: HO.MAMMO 09:08
PROVIDERS: PCP Internal Medicine; Visit Provider Internal Medicine
DX: Z12.31 Encounter for screening mammogram for malignant neoplasm of breast (principal)
CPT/HCPCS: 77063; 77067

== ENCOUNTER → 2024-04-10 09:15 | Outpatient (BNV) | payer BC, SELFPAY | PROVIDERS: PCP Internal Medicine; Visit Provider Internal Medicine | DX: Z12.31 Encounter for screening mammogram for malignant neoplasm of breast (principal) | CPT/HCPCS: 77063; 77067 ==

== ENCOUNTER → 2024-06-10 14:43 | Outpatient (REF) | payer BC, SELFPAY ==
--- NOTE | 2024-06-10 14:46 | CA_ITS ---
Transthoracic Echocardiogram Patient (Last, First, Middle): Becca Bradshaw A Gender: Female Date of : 1985 Age: 38 Procedure Date: 06/10/2024 Procedure Type: Transthoracic Echocardiogram Location: OP Height: 157.48 cm Weight: 86.18 kg BSA: 1.87 m2 Heart Rate: 83 bpm BP: 120 / 78 mmHg Special Programs Director: SHIRA Referring MD: Roland Moncada MD Billing Department Supervisor: Roland Moncada MD Symptoms: I51.7 - Cardiomegaly Study Quality: Adequate ECG Rhythm: Sinus Conclusions: - Essentially normal study with mild left atrial enlargement Findings Left Ventricle Normal left ventricular size, thickness, and systolic function. The visually estimated ejection fraction is between 55-60%. Spectral Doppler is indicative of a normal filling pattern. Right Ventricle Normal right ventricular cavity size and systolic function. Atria The left atrium is mildly dilated. Interatrial shunt cannot be excluded. The right atrium is likely dilated. Aortic Valve Normal aortic valve structure and function. There is no aortic valve stenosis. There is no aortic valve regurgitation. Mitral Valve Normal mitral valve structure and function. There is trace mitral valve regurgitation. There is no mitral valve stenosis. Pulmonic Valve The pulmonic valve is likely normal. Tricuspid Valve Normal tricuspid valve structure. There is trace tricuspid valve regurgitation. The right ventricular systolic pressure is normal. The right ventricular systolic pressure is 24 mmHg. Normal right atrial pressure. There is no evidence of pulmonary hypertension. Great Vessels All visible segments of the aorta are normal in size. The pulmonary artery was not well visualized. There is no dilatation of the ascending aorta measuring 2.60 cm. Venous The inferior vena cava is normal in size and collapses greater than 50% with inspiration. Pericardium/Pleural There is no evidence of pericardial effusion. Prior Study Comparison No significant change compared to prior study dated: 11/23/2022. Measurements 2D Linear Measurements IVSd: 0.99 0.6-0.9/0.6-1.0 cm LVIDd: 5.12 3.9-5.3/4.2-5.9 cm LVIDd Index: 2.74 2.4-3.2/2.2-3.1 cm/m2 LVIDs: 3.11 2.0-3.6 cm LVPWd: 0.97 0.7-1.1 cm LA Diam: 3.80 2.7-3.8/3.0-4.0 cm LAIDs Index: 2.03 1.5-2.3 cm/m2 LV Mass: 229.19 67-162/88-224 g LV Mass Index: 122.56 43-95/49-115 g/m2 LVOT Diam: 2.00 3.0+(-)1.3 cm 2D Systolic Function EF 4C: 58.50 >55% EF 2C: 60.10 >55% EF BiP: 57.30 >55% Mitral Valve MV Pk E: 0.99 MV PK A: 0.90 MV Decel Time: 247.00 E/A: 1.10 E'Lateral: 13.30 E'Medial: 9.90 E/E' Med: 10.00 E/E' Lat: 7.40 PHT: 72.00 MVA PHT: 3.06 Decel [place]: 4.00 Aortic Valve AoV Pk Yaw: 1.88 AoV Mn Yaw: 1.35 AoV VTI: 0.40 AoV Pk Grad: 14.00 Aov Mn Grad: 8.00 KASIE Cont.VTI: 2.11 LVOT LVOT Pk Yaw: 1.32 LVOT Mn Yaw: 0.90 LVOT VTI: 0.27 LVOT Pk Grad: 7.00 LVOT Mn Grad: 4.00 LVOT Diam: 2.00 LVOT Area: 3.14 Diastolic Function MV Pk E: 0.99 MV Pk A: 0.90 E/A: 1.10 E'Medial: 9.90 E/E' Med: 10.00 E' Laterial: 13.30 E/E' Lat: 7.40 Right Ventricle TAPSE (mm): 22.10 TVS' Yaw: 12.70 Tricuspid Valve TR Pk Yaw: 2.29 TR Pk Grad: 21.00 RA Press: 3.00 RVSP: 24.00 Great Vessels Aorta Sinus of Valsalva: 3.00 2.0-3.5 cm Ao Asc: 2.60 2.1-3.4 cm Ao Arch: 2.50 Updated in Other Vendor System with Status of Final Roland Moncada MD electronically signed on 06/10/2024 5:24:49 PM with status of Final
== END ==
LOC: HO.CARD 14:43
PROVIDERS: Visit Provider Internal Medicine Cardiovascular Disease
DX: I51.7 Cardiomegaly (principal); R93.1 Abnormal findings on diagnostic imaging of heart and coronary circulation
CPT/HCPCS: 93306

== ENCOUNTER → 2024-06-10 14:46 | Outpatient (BNV) | payer BC, SELFPAY | PROVIDERS: Visit Provider Internal Medicine Cardiovascular Disease | DX: I51.7 Cardiomegaly (principal) | CPT/HCPCS: 93306 ==

== ENCOUNTER 2024-06-18 15:16 | Outpatient (AMB) | payer BC, SELFPAY ==
--- NOTE | 2024-06-18 15:30 | A.OFFVIS_ITS ---
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: No Allergies Sulfa (Sulfonamide Antibiotics) [SULFA(SULFONAMIDE ANTIBIOTICS)] Allergy (Unknown, Verified 06/18/24 15:33) YEAST INFECTION, yeast infections hard shell seafood Allergy (Unknown, Uncoded 09/12/23 11:31) swelling of throat, vomiting seafood Allergy (Unknown, Uncoded 09/12/23 11:31) unknown seasonal Allergy (Unknown, Uncoded 09/12/23 11:31) unknown SHELLFISH Allergy (Unknown, Uncoded 09/12/23 11:31) RASH Medication List - Last Reconciled 06/18/24 by MONICA Anderson albuterol sulfate 90 mcg/actuation 2 puffs inhalation Q6H PRN biotin (Hair, Skin and Nails (biotin)) mcg PO losartan 25 mg PO DAILY venlafaxine ER 150 mg PO DAILY HPI Comments Details: This?a?38?yo female who is s/p LSG without hiatal hernia repair on?06/06/2023. Presents for 1 year 1 month post op visit. Weight today is 190.8 pounds, with a BMI of 33.8. There has been a 153.8 pound weight loss,(initial weight 344.6 pounds) since starting the program on 10/17/2022 reflecting a 44.6 % total body weight loss and a weight loss of 111.4 pounds since surgery (operative weight 302.2 pounds) reflecting a 36.8 % TBWL since surgery. No complaints of nausea, emesis, abdominal pain or reflux. Reports infrequent but normal bowel movements every 3 days and uses stool softeners regularly. Now back at school and taking bariatric mvi daily. She states that she is doing well. Continues 1/2 tab losartan daily given SBP 120-130. States her goal is to reach 155 pounds wakes at 630 am bed at 11 pm Present meal plan includes: pure protein shake 1/2 scoop 9-11, 3-5, pure protein bar 12-2 meal 4 forks/ 4 forks 1/2 c fruit: berries/pear/apple drinking 64 oz water Exercise routine includes: none in 6 months Any post op complications: none ITALIA: improved DM: never HTN: improved Hyperlipidemia: unsure GERD:?0-5 scale ??0 = no symptoms ??1 = symptoms noticeable but not bothersome 2 =symptoms bothersome but not daily ? 3 = symptoms bothersome and daily 4 = symptoms affect daily activities 5 = symptoms are incapacitating, unable to do daily activities ? How bad is the heartburn: 0 ? Heartburn while lying down: 0 ? Heartburn when standing up: 0 ? Heartburn after meals: 0 ? Does heartburn change your diet: 0 ? Does heartburn wake you up from sleep: 0 ? Do you have difficulty swallowin ? Do you have pain with swallowin ? If you take medicine for your reflux, does this affect your daily life: 0 Satisfaction with present condition - satisfied or not satisfied: satisifed [facility] Medical History Pre-op evaluation Upper respiratory tract infection Obstructive sleep apnea on CPAP Hiatal hernia Anxiety Elevated cholesterol HTN (hypertension) Hyperlipidemia Ectatic thoracic aorta Migraine aura without headache Asthma Surgical History Hx of laparoscopic partial gastrectomy History of uvulectomy Hx of tonsillectomy Family History Paternal Grandmother Breast CA Social History (Updated 06/18/24 @ 15:34 by Elisabeth Walden CMA) Household Members: Spouse and Children Housing: House Are you a primary animal care taker to a significant other at home: No Do you presently have visiting nurse or other home services: No Alcohol intake: former Patient Tobacco Use Status: Never used Tobacco Substance Use Type: Marijuana Sexual orientation: Straight/Heterosexual Gender identity: Female Physical Exam Vital Signs: Last Vital Signs Temp 97.2 F 06/18/24 15:35 Pulse 79 06/18/24 15:35 BP 144/83 H 06/18/24 15:35 Pulse Ox 98 06/18/24 15:35 Oxygen Delivery Method Room Air 06/18/24 15:35 BMI result Body Mass Index 33.8 Const General: cooperative and no acute distress Orientation/consciousness: patient oriented x3 Resp Effort & Inspection: normal respiratory effort Auscultation: clear to auscultation bilaterally Cardio Rate: regular rate Rhythm: regular rhythm GI Inspection: Yes normal to inspection and Yes incision (well healed) Palpation (GI): Soft to palpation and no masses Neuro General: patient oriented x3 Assessment & Plan Assessment & Plan (1) S/P laparoscopic sleeve gastrectomy: Code(s): Z98.84 - Bariatric surgery status Category: Surgical Plan: Patient was encouraged to return to [employer] fitness gym, incorporating weight training exercises 1st then cardiovascular activities 2nd, 20 minutes of weights, 40 minutes of cardio should help her to achieve her goal of burning 300 calories per day, 7 days per week. She does have a treadmill at home and additionally encouraged to utilize the treadmill when she is unable to get to the gym. She will continue to follow the meal plan. We will check 1 year postop labs. Return to clinic 3 months. Orders: Orders Complete Blood Count Auto Diff Today E78.5 - Hyperlipidemia, unspecified, I10 - Essential (primary) hypertension, Z98.84 - Bariatric surgery status Lipid Panel Today E78.5 - Hyperlipidemia, unspecified, I10 - Essential (primary) hypertension, Z98.84 - Bariatric surgery status IRON PROFILE Today E78.5 - Hyperlipidemia, unspecified, I10 - Essential (primary) hypertension, Z98.84 - Bariatric surgery status C Reactive Protein Today E78.5 - Hyperlipidemia, unspecified, I10 - Essential (primary) hypertension, Z98.84 - Bariatric surgery status Vitamin B1 Today E78.5 - Hyperlipidemia, unspecified, I10 - Essential (primary) hypertension, Z98.84 - Bariatric surgery status Vitamin A Today E78.5 - Hyperlipidemia, unspecified, I10 - Essential (primary) hypertension, Z98.84 - Bariatric surgery status Ferritin Today E78.5 - Hyperlipidemia, unspecified, I10 - Essential (primary) hypertension, Z98.84 - Bariatric surgery status Insulin Today E78.5 - Hyperlipidemia, unspecified, I10 - Essential (primary) hypertension, Z98.84 - Bariatric surgery status Hemoglobin A1c Today E78.5 - Hyperlipidemia, unspecified, I10 - Essential (primary) hypertension, Z98.84 - Bariatric surgery status Comprehensive Met. Panel Today E78.5 - Hyperlipidemia, unspecified, I10 - Essential (primary) hypertension, Z98.84 - Bariatric surgery status Vitamin B12 and Folate Today E78.5 - Hyperlipidemia, unspecified, I10 - Essential (primary) hypertension, Z98.84 - Bariatric surgery status Zinc Today E78.5 - Hyperlipidemia, unspecified, I10 - Essential (primary) hypertension, Z98.84 - Bariatric surgery status TSH reflex Free T4 Today E78.5 - Hyperlipidemia, unspecified, I10 - Essential (primary) hypertension, Z98.84 - Bariatric surgery status Vitamin D 25-OH Total Today E78.5 - Hyperlipidemia, unspecified, I10 - Essential (primary) hypertension, Z98.84 - Bariatric surgery status
[2024-06-18 15:35] VITALS: BP 144/83; PULSE 79; TEMP 36.2; O2SAT 98; BMI 33.8
== END 2024-06-18 16:10 | disposition home or self-care (01) ==
LOC: HO.HBS 15:18
PROVIDERS: PCP Internal Medicine; Visit Provider Physician Assistant Surgical
DX: E66.9 Obesity, unspecified (principal); Z68.33 Body mass index [BMI] 33.0-33.9, adult; Z98.84 Bariatric surgery status
CPT/HCPCS: 99213

== ENCOUNTER 2025-01-06 08:19 | Outpatient (AMB) | payer BC, SELFPAY ==
[2025-01-06 08:21] VITALS: BP 130/84; PULSE 75; TEMP 36.3; O2SAT 98; BMI 36.1
--- NOTE | 2025-01-06 08:21 | A.OFFPC_ITS ---
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 - see comments Pharm Tech Required: No Accompanied by: Self / Same As Patient Allergies Sulfa (Sulfonamide Antibiotics) (SULFA(SULFONAMIDE ANTIBIOTICS)) Allergy (Unknown, Verified 01/06/25 08:22) YEAST INFECTION, yeast infections hard shell seafood Allergy (Unknown, Uncoded 09/12/23 11:31) swelling of throat, vomiting seafood Allergy (Unknown, Uncoded 09/12/23 11:31) unknown seasonal Allergy (Unknown, Uncoded 09/12/23 11:31) unknown SHELLFISH Allergy (Unknown, Uncoded 09/12/23 11:31) RASH Medication List - Last Reconciled 01/06/25 by Shaheed Sharif MD albuterol sulfate 90 mcg/actuation 2 puffs inhalation Q6H PRN biotin (Hair, Skin and Nails (biotin)) mcg PO losartan take half tab a day orally daily; venlafaxine ER 225 mg PO DAILY Tobacco use date assessed: 01/06/25 Dental Screening Dental Screen Date: 01/06/25 Did you have a dental visit in the last 12 months?: Yes Did you have a dental problem in the last 6 months where you did not have access to dental care?: No HPI HPI Comments History of Present Illness Details History of Present Illness The patient is a 39 year old individual presenting for an annual physical examination and follow-up post-bariatric surgery. The patient underwent bariatric surgery in October and reports feeling great, having lost a total of 144 pounds. The patient's weight loss has been stagnant since the summer, but the patient has been maintaining the weight loss. The patient has a history of hypertension and is currently taking losartan 12.5 mg, which was reduced from a previous dose of 25 mg. The patient's blood pressure is 130/84 mmHg. The patient has a history of depression, which is managed with venlafaxine 225 mg, and reports that the patient's mood is good. In February, lab work showed a total cholesterol of 150 mg/dL and LDL of 94 mg/dL. The patient's TSH was low at 0.14, consistent with subclinical hyperthyroidism, and has been progressively getting lower. The patient has a history of left ventricular hypertrophy, and an echocardiogram was previously ordered but not completed. The patient experienced a tick bite in November, with the tick attached for less than a day, and reports the area is still weird. 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 The patient is up-to-date on mammograms, is four years away from needing a colonoscopy, and has a history of smoking only in high school. Medical History: - Obesity - Hypertension - Depression - Subclinical hyperthyroidism - Left ventricular hypertrophy - History of tick bite in November Surgical History: - Bariatric surgery in October Medications: - Losartan 12.5 mg for hypertension - Venlafaxine 225 mg for depression - Unspecified vitamin, taken as needed Diagnostic Results: - Labs from February: Total cholesterol 1 50 mg/dL, LDL cholesterol 94 mg/dL. - Labs from February: TSH 0.14, total thy roid level was normal. - In-office vitals: Blood pressure 130/8 4 mmHg. 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 - Substance Use: Denies current tobacco use; reports smoking in high school. - Weight Management: The patient has los t 144 pounds since bariatric surgery in October. [facility] Medical History (Updated 01/06/25 @ 08:57 by Shaheed Sharif MD) Annual physical exam Tick bite Subclinical hyperthyroidism Pre-op evaluation Upper respiratory tract infection Obstructive sleep apnea on CPAP Hiatal hernia Anxiety Elevated cholesterol HTN (hypertension) Hyperlipidemia Ectatic thoracic aorta Migraine aura without headache Asthma Surgical History (Updated 01/06/25 @ 08:57 by Shaheed Sharif MD) Hx of laparoscopic partial gastrectomy History of uvulectomy Hx of tonsillectomy Family History (Updated 01/06/25 @ 08:29 by Radha Villela MA) Paternal Grandmother Breast CA Mother No problems noted. Father No problems noted. Social History Household Members: Spouse and Children Housing: House Are you a primary manager career to a significant other at home: No Do you presently have visiting nurse or other home services: No Alcohol intake: former Patient Tobacco Use Status: Former Tobacco user e-Cigarette/Vaping Use: Former Use Substance Use Type: Marijuana service: No Current occupational status: employed Sexual orientation: Straight/Heterosexual Gender identity: Female Cognitive needs: No Hearing needs: No Vision needs: Yes (rx glasses) Questionnaire PHQ-9 Over the last 2 weeks, how often have you been bothered by any of the following problems? 1. Little interest or pleasure in doing things: not at all 2. Feeling down, depressed, or hopeless: not at all 3. Trouble falling or staying asleep, or sleeping too much: not at all 4. Feeling tired or having little energy: not at all 5. Poor appetite or overeating: not at all 6. Feeling bad about yourself - or that you are a failure or have let yourself or your family down: not at all 7. Trouble concentrating on things, such as reading the newspaper or watching television: not at all 8. Moving or speaking so slowly that other people could have noticed. Or the opposite - being so fidgety or restless that you have been moving around a lot more than usual: not at all 9. Thoughts that you would be better off or of hurting yourself in some way: not at all Total score: 0 Depression Screening Interpretation: Negative Depression Screening Done: Yes 85112 - PHQ-9 Billing: Yes Source: Developed by Drs. Augustine Lakhani, Nikkie Cazares, Joey Johnston and colleagues, with an educational katherin from [employer]. Thrive Questionnaire Date Thrive assessed: 01/06/25 I am a: Patient What is your living situation today?: I have a steady place to live Within the past 12 months, did the food you bought not last and you didn't have the money to get more?: Never true Within the past 12 months, did you worry whether your food would run out before you got money to buy more?: Never true Do you have trouble paying for medicines?: No Do you have trouble getting transportation to medical appointments?: No Do you have trouble paying your heating and electricity bill?: No Do you have trouble taking care of your child, family member or friend?: No Do you have trouble with day-to-day activities such as bathing, preparing meals, shopping, managing finances, etc.?: No Are you currently unemployed and looking for a job?: No Are you interested in more education?: No THRIVE Score: 0 AUDIT C Alcohol Use Questionnaire (AUDIT-C) 1. How often do you have a drink containing alcohol?: Never 3. How often do you have six or more drinks on one occasion?: Never Total Score: 0 Score Reviewed/Action Taken: Yes LILIANA-7 AMB Questionnaire LILIANA-7 Date LILIANA - 7 assessed: 01/06/25 Feeling nervous, anxious, or on edge: 0 = Not at all Not being able to stop or control worryin = Not at all Worrying too much about different things: 0 = Not at all Trouble relaxin = Not at all Being so restless that it is hard to sit still: 0 = Not at all Becoming easily annoyed or irritable: 0 = Not at all Feeling afraid as if something awful might happen: 0 = Not at all Total LILIANA-7 score (0-4 normal; 5-9 mild; 10-14 moderate; 15-21 severe): 0 Source: Developed by Drs. Augustine Lakhani, Nikkie Cazares, Joey Johnston and colleagues, with an educational katherin from [employer]. LILIANA-7 Assessment Billing LILIANA-7 Assessment Tool: LILIANA-7 Assessment 50081 Review of Systems Narrative Review of Systems - Constitutional: Denies complaints or concerns at the start of the visit. - Psychiatric: Reports good mood. - Gastrointestinal: Denies abdominal pain. - Integumentary: Reports a persistent, weird lesion from a tick bite in November. All systems reviewed & are unremarkable except as reviewed in HPI and above Physical exam (Primary Care) Vital Signs: Last Vital Signs Temp 97.3 F 01/06/25 08:21 Pulse 75 01/06/25 08:21 BP 130/84 01/06/25 08:21 Pulse Ox 98 01/06/25 08:21 Oxygen Delivery Method Room Air 01/06/25 08:21 BMI result Body Mass Index 36.1 Tobacco/Smoking Status: Tobacco use Status Tobacco use date assessed 01/06/25 01/06/25 08:30 Patient Tobacco Use Status Former Tobacco user 01/06/25 08:30 e-Cigarette/Vaping Use Former Use 01/06/25 08:30 PHQ-9: PHQ-9 Score PHQ-9: Total score 0 01/06/25 08:30 Depression Screening Interpretation: Negative Thrive Assessment: Date of Thrive Assessment Date Thrive assessed 01/06/25 01/06/25 08:30 Narrative Physical Exam General: +Alert and oriented, Well nourished, No acute distress. Eye: Pupils are equal, round and reactive to light, Intact accommodation, Extraocular movements are intact, Normal conjunctiva, Vision unchanged. HENT: Normocephalic, Atraumatic, Tympanic membranes are clear, Normal hearing, Oral mucosa is moist, No pharyngeal erythema, Ear canals patent. Respiratory: Lungs CTA bilaterally, No wheeze, Respirations are non-labored. Cardiovascular: Regular rate, Regular rhythm, S1 auscultated, S2 auscultated, No murmur, Good pulses equal in all extremities, Normal peripheral perfusion, No edema. Gastrointestinal: Soft, Non-tender, Non-distended, Normal bowel sounds, No organomegaly. Musculoskeletal: Normal range of motion, Normal strength, No tenderness, No swelling, No deformity, Normal gait. Integumentary: Warm, Dry, Wall, Intact. Noted tick bite with redness, advised moisturizing and monitoring for rash. Neurologic: Alert, Oriented, Normal sensory, Normal motor function, No focal defects, Cranial Nerves II-XII are grossly intact, Normal deep tendon reflexes. Psychiatric: Cooperative, Appropriate mood & affect, Normal judgment. Mood reported as good. Coding Level of Care Code Est Pt Level 4 (73737) Est Pt Prev Care 40-64y(61954) Diagnoses S/P laparoscopic sleeve gastrectomy Z98.84 HTN (hypertension), benign I10 Anxiety with depression F41.8 Subclinical hyperthyroidism E05.90 LVH (left ventricular hypertrophy) I51.7 Tick bite of left front wall of thorax, initial encounter S20.362A; W57.XXXA Encounter type: initial encounter Site of tick bite: thoracic wall Front or back of thoracic wall: front Thoracic wall location detail: left Annual physical exam Z00.00 Additional Codes PHQ-9 - 72620 - PHQ-9 Billing: Yes ([id number]) LILIANA-7 Assessment Billing - LILIANA-7 Assessment Tool: LILIANA-7 Assessment 69620 ([id number]) Comment 59541-93 Assessment & Plan Assessment & Plan (1) S/P laparoscopic sleeve gastrectomy: Comment: - The patient has achieved excellent weight loss of 144 pounds since the procedure. - Weight has stabilized since the summer. - Plan is to continue current lifestyle management. Code(s): Z98.84 - Bariatric surgery status Category: Surgical (2) HTN (hypertension), benign: Comment: - The condition is well-controlled with a blood pressure of 130/84 mmHg on losartan 12.5 mg. - The medication may be discontinued in the future with continued weight management. - Plan is to continue the current dosage. Code(s): I10 - Essential (primary) hypertension Category: Medical (3) Anxiety with depression: Comment: - The patient's mood is reported as good and stable on venlafaxine 225 mg. A 90- day refill with one additional refill for venlafaxine will be sent to the pharmacy. Code(s): F41.8 - Other specified anxiety disorders Category: Medical (4) Subclinical hyperthyroidism: Comment: - The patient's TSH has been progressively decreasing, with a level of 0.14 in February. - This can be an effect of bariatric surgery. - Plan is to recheck thyroid function tests today. Code(s): E05.90 - Thyrotoxicosis, unspecified without thyrotoxic crisis or storm Category: Medical (5) LVH (left ventricular hypertrophy): Comment: - The patient has a known history of LVH. - An echocardiogram will be ordered to re-evaluate the condition following significant weight loss, as a previously ordered study was not completed. Code(s): I51.7 - Cardiomegaly Category: Medical (6) Tick bite: Comment: - The patient had a tick bite in November that was present for less than 24 hours. - The current lesion does not resemble a classic erythema migrans rash. - No antibiotic treatment is indicated. - The patient was advised to moisturize the area and monitor for any spreading rash. Code(s): W57.XXXA - Bitten or stung by nonvenomous insect and other nonvenomous arthropods, initial encounter Category: Medical Qualifiers: Encounter type: initial encounter Site of tick bite: thoracic wall Front or back of thoracic wall: front Thoracic wall location detail: left Qualified Code(s): S20.362A - Insect bite (nonvenomous) of left front wall of thorax, initial encounter; W57.XXXA - Bitten or stung by nonvenomous insect and other nonvenomous arthropods, initial encounter (7) Annual physical exam: Comment: - The visit was designated as an annual physical. - The patient was advised to complete lab work ordered in June as well as newly added tests (hepatitis panel, HIV, microalbumin, syphilis) today. - The patient was counseled to schedule an overdue Pap smear with their ELECTRONIC INTEGRATED SYSTEMS MECHANIC and to obtain COVID and flu vaccinations. Code(s): Z00.00 - Encounter for general adult medical examination without abnormal findings Category: Medical Plan: Health Maintenance - Annual Physical Exam: This visit served as the patient's yearly physical. - Laboratory Screening: Comprehensive blood work was ordered, including thyroid panel, lipid panel, iron profile, A1c, ferritin, hepatitis panel, HIV panel, microalbumin, and syphilis test. - Gynecological Screening: The patient is overdue for a Pap smear and was advised to schedule one with their ELECTRONIC INTEGRATED SYSTEMS MECHANIC. - Cancer Screening: The patient is up to date on mammograms and does not require a colonoscopy for another four years. - Immunizations: Recommended that the patient get COVID and flu vaccinations. - Cardiovascular Screening: An echocardiogram was ordered to re-evaluate left ventricular hypertrophy post-weight loss. Patient was informed and verbally consented to the use of an ambient scribe for clinic note documentation during this visit. Vital signs reviewed. Comprehensive history, review of systems, and physical exam completed. Medications, allergies, and problem list reviewed and updated. Counseling provided on nutrition, regular exercise, sleep hygiene, and moderation of alcohol use. Discussed age-appropriate screenings (mammogram, colonoscopy, Pap, bone density) and immunizations (flu, COVID, shingles, Tdap). Screened for depression, fall risk, and home safety; no current concerns. Discussed stress management, dental and vision care, and importance of ongoing preventive follow-up. Routine labs ordered for metabolic and lipid screening. Patient educated on healthy lifestyle and agrees with the plan. Plan I commended the patient on the excellent progress following bariatric surgery, noting the significant weight loss of 144 pounds. We discussed that the blood pressure is well controlled on a low dose of losartan, and I anticipate that the patient will eventually no longer need it with continued weight management. I refilled the patient's venlafaxine for depression as the patient's mood is stable. I explained the rationale for rechecking thyroid labs due to the progressively lowering TSH, which can be a side effect of bariatric surgery. We also discussed the importance of ordering a new echocardiogram to reassess the patient's left ventricular hypertrophy, especially now after significant weight loss. Regarding the tick bite from November, I explained that its appearance is not classic for Lyme disease and that because the tick was attached for less than 36 hours, vinh atment is not indicated at this time; I provided observation and skin care recommendations. I reviewed health maintenance needs, advising the patient to schedule an overdue Pap smear with their ELECTRONIC INTEGRATED SYSTEMS MECHANIC and to obtain current COVID and flu vaccinations. I provided clear instructions for completing both pending and newly ordered lab work. Orders: Orders HIV Ab/Ag Today Z00.00 - Encounter for general adult medical examination without abnormal findings Microalbumin, Random (w Creat) Today Z00.00 - Encounter for general adult medical examination without abnormal findings Syphilis Screen Today Z00.00 - Encounter for general adult medical examination without abnormal findings CA echo transthoracic complete Today I51.7 - Cardiomegaly Hepatitis A,B,C Profile Today Z00.00 - Encounter for general adult medical examination without abnormal findings Medications: Refilled venlafaxine ER 225 mg PO DAILY 90 tabs 1RF Patient Instructions: - Please go to the lab across the [place] today to have your blood drawn. Tell them there are old orders from June and new orders from today that both need to be done. If they have a problem, please come back to the office so we can reorder them for you. - We are ordering a heart ultrasound (echocardiogram) to check on your heart after your weight loss. - Continue taking your losartan for blood pressure as prescribed. We expect that you may be able to stop this medication in the future. - We have sent a 90-day refill for your venlafaxine for depression to your pharmacy. - For the spot from the old tick bite, use moisturizer to keep it from getting dry. Let us know if you develop a rash on other parts of your body. - Please make an appointment with your ELECTRONIC INTEGRATED SYSTEMS MECHANIC to get a Pap smear, as you are overdue for this screening. - Please get your updated COVID-19 and flu shots from your local pharmacy.
--- OUTSIDE RECORDS SUMMARY | 2025-01-06 08:39 | XMS_ITS | Clinical Summary ---
Author Organization [facility] Address [address] [place] [phone] Phone Care Team Providers Care Forest Fire Management Officer Name Role Phone Oscar Griffin MD Primary Care Provider Allergies No known active allergies Medications venlafaxine (EFFEXOR-XR) 150 MG 24 hr capsule Take 1 capsule by mouth every morning. 02/20/2023 Active losartan (COZAAR) 25 MG tablet Take 1 tablet by mouth every morning. 02/15/2023 Active VITAMIN D3 25 mcg (1,000 unit) capsule Take 1 capsule by mouth every morning. 04/03/2023 Active Active Problems No known active problems Immunizations Immunization Administration Dates Next Due DTaP 10/12/2011 Influenza Quadrivalent MDCK Preservative Free IM 10/31/2022,10/30/2021,10/25/2018,12/06 Influenza Quadrivalent Prese rvative Free IM 11/22/2020,12/26/2016,11/18/2014 Pneumococcal polysaccharide PPSV23 02/24/2014 Tdap 10/31/2022,03/25/2017 Social History Tobacco Use Types Packs/Day Years Used Date Smoking Tobacco: Never Smokeless Tobacco: Never Tobacco Cessation:Counseling Given: Not Answered Education Answer Date Recorded Are you interested in more education? Not on perla e 06/08/2022 Are you concerned about learning? Not on file 06/08/2022 No 06/08/2022 No 06/08/2022 Digital Access Answer Date Recorded No 07/07/2022 No 07/07/2022 Reliable internet access at home? Not on file 07/07/2022 Device with a working camera? Not on file Comments No Sex and Gender Information Value Date Recorded Sex Assigned at Not on file Legal Sex Female 10:28 PM EDT Gender Identity Not on file Sexual Orientation Not on file Last Filed Vital Signs Vital Sign Reading Time Taken Comments Blood Pressure 128/82 05/10/2023 11:10 AM EDT Pulse 109 05/10/2023 11:10 AM EDT Temperature 37.1 C (98.7 F) 05/10/2023 11:10 AM EDT Respiratory Rate 18 05/10/2023 11:1 0 AM EDT Oxygen Saturation 97% 05/10/2023 11: 10 AM EDT Inhaled Oxygen Concentration - - Weight 104.2 kg (229 lb 12.8 oz) 10/21/2023 4:00 PM EDT Height 160 cm (5' 3 ) 10/21/2023 4:00 PM EDT Body Mass Index 40.71 10/21/2023 4:00 PM EDT Plan of Treatment Health Maintenance Due Date Last Done Comments CREATININE LEVEL 1983 POTASSIUM LEVEL 1983 DEPRESSION SCREENING 1995 HEPATITIS C SCREENING 08/06/2001 HIV ONE-TIME SCREENING (18-65 YEARS) 08/06/2001 PAP SMEAR 08/06/2004 SCREENING FOR DIABETES 08/06/2018 MAMMOGRAM 2023 INFLUENZA VACCINE (#1) 2024 , 10/30/2021, 11/22/2020, Additional history exists COVID-19 VACCINE ( season) 2024 10/30/2021, 10/22/2020, 05/01/2020, Additional history exists Adult Td,Tdap Booster 10/31/2032 10/31/2022, 018 PNEUMOCOCCAL VACCINES (0-49 years) Aged Out 02/24/2014 No longer eligible based on patient's age to complete this topic SMOKING STATUS SCREENING (Once After 26 Yrs) Completed 10/21/2023 HEPATITIS A VACCINES Aged Out No long er eligible based on patient's age to complete this topic HIB VACCINES Aged Out No longer eligi ble based on patient's age to complete this topic MENINGOCOCCAL VACCINES (ACWY) Aged Out No longer eligible based on patient's age to complete this topic MENINGOCOCCAL VACCINES (B) Aged Out N o longer eligible based on patient's age to complete this topic Medical Devices Not on file Insurance [facility] PPO EPO [facility] PPO EPO [facility] P[facility] EPO [facility] P[facility] EPO [facility] PPO EPO [facility] PPO EPO 11 [place] Care Teams Forest Fire Management Officer Relationship Specialty Start Date End Date Oscar Griffin MD [address] [place] [address] [place] [address] PCP - General Internal Medicine 01/07/21 Additional Source Comments The information contained in this document represents components of the legal health record. It is not the complete legal health record.[facility]
--- OUTSIDE RECORDS SUMMARY | 2025-01-06 08:39 | XMS_ITS | Encounter Summary ---
Author Organization [facility] Address [address] [place] [phone] Phone Care Team Providers Care Field Artillery Operations Man Name Role Phone Oscar Griffin MD Primary Care Provider Reason for Visit * Reason Onset Date Comments Appointment 10/05/2024 Encounter Details Date Type Department Care Team (Late st Contact Info) Description 10/05/2024 Telephone [facility] [address] [place] [address] Seema Alexander MD [address] [facility] [place], [address] [place] [phone] [email or web address] Appointment Social History Tobacco Use Types Packs/Day Years Used Date Smoking Tobacco: Never Smokeless Tobacco: Never Education Answer Date Recorded Are you interested [...] on file Sexual Orientation Not on file documented as of this encounter Progress Notes * Jus Cifuentes - 10/14/2024 11:08 AM EDT LVM to schedule repeat PAP * Jus Cifuentes - 10/08/2024 10:26 AM EDT LVM to schedule repeat PAP * Jus Cifuentes - 10/05/2024 4:48 PM EDT Repeat PAP per notes after 11/04/2024 * Mary Sharpe - 10/05/2024 3:16 PM EDT LVM for pt to call back and schedule AE (phrased as 1yr f/u in message, KK wanted pt on 1 yr pap recall). documented in this encounter Plan of Treatment Not on file documented as of this encounter Visit Diagnoses Not on filedocumented in this encounter Care Teams Field Artillery Operations Man Relationship Specialty Start Date End Date Oscar Griffin MD [address] [place] [address] [place] [id number] PCP - General Internal Medicine 01/07/21 documented as of this encounter Additional Source Comments The information contained in this document represents components of the legal health record. It is not the complete legal health record.[facility]
== END 2025-01-06 08:51 | disposition home or self-care (01) ==
PROVIDERS: PCP Student in an Organized Health Care Education/Training Program; Visit Provider Student in an Organized Health Care Education/Training Program
DX: Z00.00 Encounter for general adult medical examination without abnormal findings (principal); I10 Essential (primary) hypertension; F41.8 Other specified anxiety disorders; E05.90 Thyrotoxicosis, unspecified without thyrotoxic crisis or storm; Z98.84 Bariatric surgery status; I51.7 Cardiomegaly; S20.362A Insect bite (nonvenomous) of left front wall of thorax, initial encounter; W57.XXXA Bitten or stung by nonvenomous insect and other nonvenomous arthropods, initial encounter

== ENCOUNTER → 2025-01-06 08:19 | Outpatient (BNVA) | payer BC, SELFPAY | PROVIDERS: PCP Internal Medicine; Visit Provider Student in an Organized Health Care Education/Training Program | DX: Z00.00 Encounter for general adult medical examination without abnormal findings (principal); I10 Essential (primary) hypertension; F41.8 Other specified anxiety disorders; E05.90 Thyrotoxicosis, unspecified without thyrotoxic crisis or storm; I51.7 Cardiomegaly; S20.362A Insect bite (nonvenomous) of left front wall of thorax, initial encounter; W57.XXXA Bitten or stung by nonvenomous insect and other nonvenomous arthropods, initial encounter; Z98.84 Bariatric surgery status | CPT/HCPCS: 96127 ==

== ENCOUNTER 2025-01-06 08:59 | Outpatient (REF) | payer BC, SELFPAY ==
[2025-01-06 09:16] LABS: MANUAL DIFF FLAG NO
[2025-01-06 10:02] LABS: Hematocrit 37.9 % (37.0-47.0); Hemoglobin 12.5 g/dl (12.0-16.0); Imm Gran Abs Auto 0.01 X10*3/uL (0.00-0.03); Imm Gran Pct Auto 0.2 % (0.0-0.4); Lymphocytes Absolute Auto 2.3 X10*3/uL (1.2-4.9); Mean Corpuscular HGB Conc 33.0 g/dl (31.0-35.0); Mean Corpuscular Hemoglobin 29.1 pg (27.0-33.0); Mean Corpuscular Volume 88.1 fL (80.0-98.0); NRBC Abs Auto 0.000 X10*3/uL (0.0-0.012); NRBC Pct Auto 0.0 /100WBC (0.0-0.2); Platelet Count 304 X10*3/uL (160-400); Red Blood Count 4.30 X10*6/uL (4.20-5.50); White Blood Count 5.7 X10*3/uL (4.8-10.8)
[2025-01-06 11:12] LABS: Alanine Aminotransferase 16 U/L (0-31); Albumin Level 4.1 g/dL (3.5-5.0); Alkaline Phosphatase 56 U/L (39-117); Anion Gap 11 (12-20); Aspartate Amino Transferase 16 U/L (5-31); Blood Urea Nitrogen 14 mg/dL (9-16); Calcium 9.2 mg/dL (8.4-10.2); Carbon Dioxide 26 mmol/L (22-29); Chloride 108 mmol/L (96-108); Cholesterol 164 mg/dL (<200); Estimated Glomerular Filt Rate > 60; HDL Cholesterol 74 mg/dL (>40); Iron 112 mcg/dL (30-160); Percent Iron Saturation 31 % (15-50); Potassium 4.2 mmol/L (3.3-5.1); Sodium 141 mmol/L (135-145); Total Iron Binding Capacity 360 mcg/dL (228-428); Total Protein 6.9 g/dL (6.5-8.0); Triglycerides 66 mg/dL (<150); Unsaturated Iron Binding 248 ug/dL
[2025-01-06 11:13] LABS: Ferritin 38 ng/mL (10-250)
[2025-01-06 11:22] LABS: Microalbum/Creatinine Ratio Ur 4.6 ug/mg cr (<30)
[2025-01-06 11:25] LABS: Syphilis Screen Nonreactive (Nonreactive)
[2025-01-06 11:34] LABS: Folate 12.4 ng/mL (> or = 4.0); Vitamin B12 260 pg/mL (200-900)
[2025-01-06 11:41] LABS: HBS Num1 111.40 mIU/mL (0-7.99); HBc Num1 0.15 S/CO (0.00-0.79); Hepatitis A Antibody IgM 0.32 Index (0-0.79); ~HepC Num1 0.17 S/CO (0.00-0.79); ~Hepatitis A Antibody IgM Nonreactive (Nonreactive); ~Hepatitis B Surface Antibody REACTIVE (Nonreactive)
[2025-01-06 11:42] LABS: HBsAGNum1 0.32 S/CO (0.00-0.99); HIV Num 1 0.07 S/CO (0.00-0.99); Hepatitis B Surface Antigen Negative (Negative); ~Hepatitis C Antibody Nonreactive (Nonreactive)
== END 2025-01-06 09:00 | disposition home or self-care (01) ==
LOC: HO.LAB 08:59
PROVIDERS: Student in an Organized Health Care Education/Training Program; Visit Provider Physician Assistant Surgical
DX: Z00.00 Encounter for general adult medical examination without abnormal findings (principal); I10 Essential (primary) hypertension; E78.5 Hyperlipidemia, unspecified; Z98.84 Bariatric surgery status; Z11.4 Encounter for screening for human immunodeficiency virus [HIV]; Z13.1 Encounter for screening for diabetes mellitus
CPT/HCPCS: 36415; 80053; 80061; 82043; 82306; 82570; 82607; 82728; 82746; 83036; 83525; 83540; 84425; 84443; 84590; 84630; 85025; 86140; 86704; 86706; 86709; 86780; 86803; 87340; 87389